=== PATIENT | female | born 1955 | race Caucasian/White ===

== ENCOUNTER 2016-09-28 17:21 | Emergency (ER) | payer OTHER ==
[~2016-09-28] VITALS: Ht 161.3 cm; Wt 99.2 kg
[~2016-09-28 17:21] MED LIST: ASPI81TA21 PO; CALCTAB7 PO; CMD5 PO; HYDR25TA4 PO; MULTTAB58 PO; POLY335040 PO; PRT/20 PO; VERA180T15 PO; VTMB12UNK PO; ZNTUNK PO
[2016-09-28 17:27] VITALS: TEMP 36.8; Ht 161.3 cm; Wt 99.2 kg
[2016-09-28 19:36] VITALS: O2SAT 98
[2016-09-28 19:49] LABS: BASO % 0.5 %; BASO ABS # 0.04 K/uL (0-0.2); COMPLETE YES; EOS % 1.8 %; HEMATOCRIT 45.1 % (37-47); IG% 0.3 %; LYMPH % 28.2 %; LYMPH ABS # 2.24 K/uL (1.2-3.4); MEAN CELL VOLUME 94.7 fL (80-100); MEAN CORPUSCULAR HEMOGLOBIN 32.8 pg (25-34); MEAN CORPUSCULAR HGB CONC 34.6 g/dl (32-36); MEAN PLATELET VOLUME 9.5 fL (7.4-10.4); MONO % 6.8 %; NEUT % 62.4 %; PLATELET COUNT 280 K/uL (130-400); RED BLOOD COUNT 4.76 M/uL (4.2-5.4); WHITE BLOOD COUNT 7.94 K/uL (4.8-10.8)
[2016-09-28] MEDS ORDERED: BUPR200T2 PO (19:54)
[2016-09-28] MEDS ORDERED: DICL50TA3 PO (19:54)
[2016-09-28] MEDS ORDERED: TRAZ50TA35 PO (19:54)
[2016-09-28 19:59] LABS: PROTHROMBIN TIME (PATIENT) 10.7 SECONDS (9.0-12.0)
[2016-09-28 20:07] LABS: BUN/CREATININE RATIO 24.2 (10-20); CALCIUM 9.2 mg/dl (8.5-10.1); CREATININE 0.8 mg/dl (0.60-1.20); POTASSIUM 3.5 mmol/L (3.5-5.1)
--- NOTE | 2016-09-28 20:36 | DIAGNOSTIC IMAGING REPORT ---
CHEST ONE VIEW PORTABLE CLINICAL HISTORY: Atypical chest pain COMPARISON STUDY: 04/08/2012 FINDINGS: The cardiac and mediastinal contours are normal. There is no evidence of focal pulmonary consolidation. There is no evidence of failure. No pleural effusions are visualized.[ IMPRESSION: No active disease in the chest. Electronically signed by: Daron Thao M.D. 09/28/2016 8:34 PM Dictated Date/Time: 09/28/2016 8:34 PM
[2016-09-28 20:47] VITALS: BP 132/81; PULSE 68; O2SAT 98
--- NOTE | 2016-09-28 22:34 | EMERGENCY ROOM VISIT NOTE ---
History Report prepared by Theodore: Merry Santos Under the Supervision of: Dr. Dev Musa M.D. First contact with patient: 19:31 Chief Complaint: HYPOTENSION Stated Complaint: LOW BP,DOESN'T REGISTER ON MONITOR History of Present Illness The patient is a 61 year old female who presents to the Emergency Room with complaints of hypotension since yesterday. The patient notes that her baseline blood pressure is around 100/68. Wednesday night, the patient ate frozen soda and afterwards noticed her heart racing and a burning sensation in her chest and neck. She took her blood pressure and it was 122/98 which she notes is high compared to her baseline. Yesterday, she took her blood pressure and it was 114/ 75. When she took it a second time, it was 93/71. Today, she believes that her blood pressure was lower than that because she could not get a reading until about noon. At that time it was 96/69. Currently, she notes that she feels somewhat woozy. She does note intermittent chest tightness that she has had for months, which has been more frequent over the past couple of weeks. She does feel slightly short of breath when she develops the chest tightness, but she notes that she feels short of breath at baseline. She also has a cough which is chronic. She is supposed to be seeing Dr. Rhoades for a cardiology appointment soon. Denies fever, black or bloody stools, diarrhea, new leg swelling or pain, or other complaints. She describes the last time that she had chest tightness was when she ate a frozen soda and it caused a burning sensation in her chest. This was on Wednesday. Source of History: patient Onset: yesterday Position: other (global) Symptom Intensity: lowest blood pressure reading of 93/71 Timing: other (persistent) Associated Symptoms: + cough (chronic), No diarrhea, No fevers Note: Other symptoms: chest tightness, woozy Review of Systems See HPI for pertinent positives & negatives. A total of 10 systems reviewed and were otherwise negative. Past Medical & Surgical Medical Problems: (1) A-fib (2) Acute diverticulitis (3) Pulmonary emboli Surgical Problems: (1) History of appendectomy (2) Hx of cholecystectomy Family History Cancer FHx: gallbladder disease Heart disease Kidney disease Social History Smoking Status: Current Every Day Smoker Alcohol Use: none Drug Use: none Marital Status: Occupation Status: retired Current/Historical Medications Scheduled Bupropion (Wellbutrin Sr), 200 MG PO BID Scheduled PRN Diclofenac (Voltaren), 50 MG PO TID PRN for Pain Trazodone Hcl (Trazodone), 100 MG PO HS PRN for Sleep Allergies Coded Allergies: Cephalosporins (Verified Allergy, Unknown, KEFLEX, 10/05/11) Ceepryn Chloride (Verified Allergy, tongue swelling, 10/05/11) Domiphen (Verified Allergy, tongue swelling, 10/05/11) Ethanol (Verified Allergy, tongue swelling, 10/05/11) Physical Exam Vital Signs Date Time Temp Pulse Resp B/P Pulse Ox O2 Delivery O2 Flow Rate FiO2 09/28/16 20:47 68 18 132/81 98 09/28/16 19:40 63 09/28/16 19:36 98 Room Air 09/28/16 19:36 62 18 128/76 98 Room Air 09/28/16 17:27 36.8 101 18 136/83 96 Room Air Physical Exam Constitutional: Vital signs reviewed. Eyes: Pupils are equal round reactive to light. Conjunctiva are noninjected. ENT: Pharynx is clear without erythema or exudate. Mucous membranes are moist. Neck supple without meningeal signs. Respiratory: Clear to auscultation bilaterally. Breath sounds are equal bilaterally. Cardiovascular: Regular rate and rhythm. No rubs or gallops. GI: Soft, nondistended and nontender. Bowel sounds are present. Musculoskeletal: No peripheral edema. No lower extremity tenderness. Integumentary: No cyanosis. Neurological: The patient is awake and alert. No focal deficits. Psychiatric: Normal affect. Medical Decision & Procedures ER Provider Diagnostic Interpretation: X-ray results as stated below per interpretation by me and the radiologist: CHEST ONE VIEW PORTABLE CLINICAL HISTORY: Atypical chest pain COMPARISON STUDY: 04/08/2012 FINDINGS: The cardiac and mediastinal contours are normal. There is no evidence of focal pulmonary consolidation. There is no evidence of failure. No pleural effusions are visualized.[ IMPRESSION: No active disease in the chest. Electronically signed by: Daron Thao M.D. 09/28/2016 8:34 PM Dictated Date/Time: 09/28/2016 8:34 PM Laboratory Results 09/28/16 19:30 Red Blood Count 4.76, Mean Corpuscular Volume 94.7, Mean Corpuscular Hemoglobin 32.8, Mean Corpuscular Hemoglobin Concent 34.6, Mean Platelet Volume 9.5, Neutrophils (%) (Auto) 62.4, Lymphocytes (%) (Auto) 28.2, Monocytes (%) (Auto) 6.8, Eosinophils (%) (Auto) 1.8, Basophils (%) (Auto) 0.5, Neutrophils # (Auto) 4.96, Lymphocytes # (Auto) 2.24, Monocytes # (Auto) 0.54, Eosinophils # (Auto) 0.14, Basophils # (Auto) 0.04 09/28/16 19:30 Test 09/28/16 19:30 09/28/16 19:47 White Blood Count 7.94 K/uL (4.8-10.8) Red Blood Count 4.76 M/uL (4.2-5.4) Hemoglobin 15.6 g/dL (12.0-16.0) Hematocrit 45.1 % (37-47) Mean Corpuscular Volume 94.7 fL (80-100) Mean Corpuscular Hemoglobin 32.8 pg (25-34) Mean Corpuscular Hemoglobin Concent 34.6 g/dl (32-36) Platelet Count 280 K/uL (130-400) Mean Platelet Volume 9.5 fL (7.4-10.4) Neutrophils (%) (Auto) 62.4 % Lymphocytes (%) (Auto) 28.2 % Monocytes (%) (Auto) 6.8 % Eosinophils (%) (Auto) 1.8 % Basophils (%) (Auto) 0.5 % Neutrophils # (Auto) 4.96 K/uL (1.4-6.5) Lymphocytes # (Auto) 2.24 K/uL (1.2-3.4) Monocytes # (Auto) 0.54 K/uL (0.11-0.59) Eosinophils # (Auto) 0.14 K/uL (0-0.5) Basophils # (Auto) 0.04 K/uL (0-0.2) RDW Standard Deviation 46.0 fL (36.4-46.3) RDW Coefficient of Variation 13.1 % (11.5-14.5) Immature Granulocyte % (Auto) 0.3 % Immature Granulocyte # (Auto) 0.02 K/uL (0.00-0.02) Prothrombin Time 10.7 SECONDS (9.0-12.0) Prothromb Time International Ratio 1.0 (0.9-1.1) Activated Partial Thromboplast Time 25.4 SECONDS (21.0-31.0) Partial Thromboplastin Ratio 1.0 Anion Gap 8.0 mmol/L (3-11) Est Creatinine Clear Calc Drug Dose 83.7 ml/min Estimated GFR () 92.2 Estimated GFR (Non- 79.6 BUN/Creatinine Ratio 24.2 (10-20) Calcium Level 9.2 mg/dl (8.5-10.1) Bedside Troponin I 0.000 ng/ml (0-0.045) Laboratory results as reviewed by me. ECG Indication: other (hypotension) Rate (beats per minute): 61 Rhythm: normal sinus Findings: no acute ischemic change, no ectopy ED Course 1932: The patient was evaluated in room A3. A complete history and physical exam was performed. 2034: I reassessed the patient and talked to her about test results. She doesnt want to stay in the hospital because her has dementia. Her pressure is now 132/80. She will be discharged from the ER and will follow closely with her doctor. 2037: I spoke with Dr. Menezes for expedited outpatient follow up. Medical Decision This is a 61-year-old female presents with low blood pressure and chest discomfort. Differential diagnosis includes GERD, metabolic derangement, dehydration, unstable angina, ND. I did perform a limited focused review of portions of the patient's old chart on the electronic medical record. The patient has had no recent pertinent visits to this hospital. I did evaluate the patient as noted above. The patient states that she has had low blood pressures at home but her blood pressure here is unremarkable. She did describe chest discomfort over the past 2 months but has not had any recently other than a burning sensation after drinking soda. IV access was established. The patient was placed on a continuous drafter electronic. I did order and personally review the patient's 12-lead EKG and chest x-ray as described above. I did order and review the patient's blood work as noted in the electronic medical record. Troponin is negative. I did discuss the test results with the patient. Her blood pressure is stable at this time. I did discuss possible workup for her chest discomfort. She did not wish to be admitted as she has a who has care needs at home. She will follow up closely with her doctor for further evaluation. I did speak to Dr. Brewer who will try to ensure expedient follow up for her. The patient was discharged in good condition. Impression Primary Impression: Low blood pressure Additional Impression: Precordial chest pain Scribe Attestation The scribe's documentation has been prepared under my direct and personally reviewed by me in its entirety. I confirm that the note above accurately reflects all work, treatment, procedures, and medical decision making performed by me. Departure Information Dispostion Home / Self-Care Referrals Pedro Hayden, D.O. (PCP) Patient Instructions Chest Pain - [facility], [facility] Additional Instructions You have been examined and treated today on an emergency basis only. This is not a substitute for, or an effort to provide, complete comprehensive medical care. It is impossible to recognize and treat all injuries or illnesses in a single emergency department visit. It is therefore important that you follow up closely with your physician. Call as soon as possible for an appointment. Return for worsening symptoms or if you develop profuse sweating, difficulty breathing, feeling like you will pass out or any other concerning symptoms. Problem Qualifiers
== END 2016-09-28 20:49 | disposition home or self-care (01) ==
LOC: C.EDB 17:21 → C.EDA 20:49
DX: I95.9 Hypotension, unspecified (principal); R07.2 Precordial pain; I48.91 Unspecified atrial fibrillation; K57.92 Diverticulitis of intestine, part unspecified, without perforation or abscess without bleeding; F17.200 Nicotine dependence, unspecified, uncomplicated; Z90.49 Acquired absence of other specified parts of digestive tract; Z98.890 Other specified postprocedural states; Z79.899 Other long term (current) drug therapy; Z88.8 Allergy status to other drugs, medicaments and biological substances; Z80.9 Family history of malignant neoplasm, unspecified; Z83.79 Family history of other diseases of the digestive system; Z82.49 Family history of ischemic heart disease and other diseases of the circulatory system; Z84.1 Family history of disorders of kidney and ureter

== ENCOUNTER 2017-08-09 06:53 | Day surgery (SDC) | payer OTHER ==
[2017-06-24 13:39] VITALS: BMI 39.0
--- NOTE | 2017-06-24 14:26 | PAT Medication Instructions ---
Service Date Jun 24, 2017. Current Home Medication List Aspirin (Aspirin Ec), 81 MG PO QAM Atorvastatin (Lipitor), 20 MG PO QAM Bupropion (Wellbutrin Sr), 150 MG PO QPM Bupropion HCl (Bupropion HCl Sr), 2 TAB PO QAM Diclofenac (Voltaren), 50 MG PO TID PRN for Pain Diclofenac (Voltaren), 50 MG PO TIDM Metoprolol Succinate (Toprol Xl), 12.5 MG PO QAM Sennosides-Docusate Sodium (Stool Softener), 2 TABS PO QPM Tramadol (Ultram), 50 MG PO Q6 PRN for Pain Trazodone Hcl (Trazodone), 100 MG PO HS PRN for Sleep Medication Instructions For Your Scheduled Surgery - Check with surgeon for instructions: Diclofenac (Voltaren), 50 MG PO TID PRN for Pain Diclofenac (Voltaren), 50 MG PO TIDM - Hold the following medications the morning of surgery: Sennosides-Docusate Sodium (Stool Softener), 2 TABS PO QPM - Take the following medications the morning of surgery with a sip of water: Tramadol (Ultram), 50 MG PO Q6 PRN for Pain (okay to take up to 4 hours prior to surgery if needed) Metoprolol Succinate (Toprol Xl), 12.5 MG PO QAM Bupropion HCl (Bupropion HCl Sr), 2 TAB PO QAM Atorvastatin (Lipitor), 20 MG PO QAM Aspirin (Aspirin Ec), 81 MG PO QAM (okay to continue per surgeon) - Take the following medications as scheduled the night before surgery: Trazodone Hcl (Trazodone), 100 MG PO HS PRN for Sleep (if needed) Tramadol (Ultram), 50 MG PO Q6 PRN for Pain (if needed) Bupropion (Wellbutrin Sr), 150 MG PO QPM If you have any questions please call us at [phone] or [phone] or [phone]
[2017-08-03 14:32] VITALS: BMI 39.0
[~2017-08-09] VITALS: Ht 160 cm; Wt 100.0 kg
[~2017-08-09 06:53] MED LIST changes: -ASPI81TA21 PO; +ASPI81TA28 PO; +ATOR-22 PO; +BUPR-79 PO; -CALCTAB7 PO; +CEFAZOLIN 2000MG IV PUSH 10 ML IV SCH; +CLINDAMYCIN 600 MG/54 ML D5W IV SCH; -CMD5 PO; +DICL50TA3 PO; -HYDR25TA4 PO; +LACTATED RINGER'S 1000ML 1,000 ML IV SCH; +METO25TA3 PO; -MULTTAB58 PO; -POLY335040 PO; -PRT/20 PO; +SENNTAB23 PO; +TRAM-10 PO; +TRAZ50TA35 PO; -VERA180T15 PO; -VTMB12UNK PO; +WLLSR150 PO; -ZNTUNK PO
[2017-08-09 07:23] VITALS: BP 123/68; PULSE 58; TEMP 36.7; O2SAT 95; Ht 160 cm; Wt 100.0 kg
[2017-08-09] MEDS ORDERED: ONDANSETRON INJ 2 MG/ML 2 ML VIAL ONE (08:03)
[2017-08-09] MEDS ORDERED: DEXAMETHASONE SOD INJ 4 MG/ML VIAL ONE (08:03)
[2017-08-09] MEDS ORDERED: PROPOFOL IV EMULSION 10 MG/ML 20 ML VIAL IV ONE (08:03)
[2017-08-09] MEDS ORDERED: FENTANYL CITRATE INJ 50 MCG/1 ML 2 ML VIAL ONE (08:03)
[2017-08-09] MEDS ORDERED: MIDAZOLAM HCL 1 MG/ML 2ML VIAL ONE (08:03)
[2017-08-09] MEDS ORDERED: GLYCOPYRROLATE INJ 0.2 MG/ML VIAL ONE ×2 (08:03→09:45)
[2017-08-09] MEDS ORDERED: NEOSTIGMINE METHYLSULFATE 5 MG/5 ML SYR ONE (08:03)
[2017-08-09] MEDS ORDERED: LIDOCAINE HCL 2% 2 ML VIAL (20MG/ML) ONE (08:03)
--- NOTE | 2017-08-09 08:28 | History & Physical Bridge Note ---
H&P Re-Evaluation Bridge Note: I have examined the patient, reviewed the History & Physical and in the interval since the performance of the History & Physical I have noted the following changes of clinical significance: No changes noted
[2017-08-09] MEDS ORDERED: BUPIVACAINE 0.5 % 5 MG/1 ML MPF 30ML VIAL ONE (08:45)
[2017-08-09] MEDS ORDERED: BACITRACIN OINT 15 GM TUBE ONE (08:45)
[2017-08-09] MEDS ORDERED: LIDOCAINE HCL 1% 20 ML VIAL ONE (08:45)
[2017-08-09] MEDS ORDERED: ONDANSETRON INJ 2 MG/ML 2 ML VIAL IV PRN ×2 (09:15→10:30)
[2017-08-09] MEDS ORDERED: EpHEDrine SULFATE INJ 50 MG/ML AMP IV PRN (09:15)
[2017-08-09] MEDS ORDERED: FLUMAZENIL 0.1 MG/1 ML 10 ML VIAL IV PRN (09:15)
[2017-08-09] MEDS ORDERED: ATROPINE SULFATE 0.1 MG/ML 5ML SYR IV PRN (09:15)
[2017-08-09] MEDS ORDERED: LABETALOL HCL IV 5 MG/ML 20ML IV PRN (09:15)
[2017-08-09] MEDS ORDERED: PROMETHAZINE HCL INJ 12.5 MG in SODIUM CHLORIDE 0.9% 50ML 50 ML IV PRN (09:15)
[2017-08-09] MEDS ORDERED: NALOXONE HCL 0.4 MG/1 ML VIAL/CARP IV PRN (09:15)
[2017-08-09] MEDS ORDERED: HYDROmorphone INJ 1 MG/ML SYR IV PRN (09:15)
[2017-08-09] MEDS ORDERED: LARYING-O-JET KIT (LTA) ONE ×2 (09:45)
[2017-08-09] MEDS ORDERED: KETOROLAC TROMETHAMINE 30 MG/ML VIAL ONE (09:45)
[2017-08-09] MEDS ORDERED: EpHEDrine SULFATE 50MG/5ML SYR ONE (09:45)
[2017-08-09] MEDS ORDERED: SODIUM CHLORIDE 0.9% INJ 10 ML VIAL ONE (09:51)
[2017-08-09] MEDS ORDERED: EpHEDrine SULFATE INJ 50 MG/ML AMP ONE (09:51)
[2017-08-09] MEDS ORDERED: ROCURONIUM BROMIDE 10 MG/ML 5 ML VIAL IV ONE (09:54)
[2017-08-09] MEDS ORDERED: ALBUTEROL HFA INHALER 8.5 GM INH ONE (10:07)
[2017-08-09] MEDS ORDERED: OXYC-57 PO (10:18)
--- NOTE | 2017-08-09 10:18 | [facility] Post Operative Brief Note ---
Immediate Operative Summary Operative Date Aug 09, 2017. Pre-Operative Diagnosis Ventral Hernia Post-Operative Diagnosis Ventral Hernia Procedure(s) Performed Open Repair Ventral Hernia with Ventralex Hernia Patch Surgeon Dr. Pati Joyner Agricultural Extension Educator Surgeon(s) Elisa Benton PA-C Estimated Blood Loss 5ml Findings ventral hernia, [id number] Fluids (cc crystalloids) 1000ml Specimens Permanent Solution: A. Hernia Sac Drains none Anesthesia general Complication(s) None Disposition Recovery Room / PACU
--- NOTE | 2017-08-09 10:23 | Discharge Instructions ---
Discharge Instructions Date of Service Aug 09, 2017. Admission Reason for Admission: Ventral Hernia Discharge Discharge Diagnosis / Problem: same Discharge Goals Goal(s): Decrease discomfort, Improve function Activity Recommendations Activity Limitations: as noted below No heavy lifting over 10 pounds for 4-6 weeks No strenuous activity until cleared by surgeon No submerging incisions underwater for 2 weeks (no bathing, swimming, or hot tubs) No driving while taking narcotic pain medication or until you are pain free . Instructions / Follow-Up Instructions / Follow-Up You may shower in 4 days, sponge bath and wash hair in meantime Keep dressing clean and dry and remove in 4 days and then replace daily or as needed Surgical lucy will be removed in the office Walking and light activity is encouraged You will be given narcotic pain medication (Percocet) as needed for moderate to severe pain. This medication may make you drowsy. If you have mild pain you may take extra strength Tylenol or Ibuprofen as needed for pain Wear abdominal binder daily for support you may take it off at bedtime Follow-up in surgical office in 1-2 weeks as scheduled, please call office at [phone] if you do not already have an appointment Current Hospital Diet Patient's current hospital diet: Discharge Diet Recommended Diet: Regular Diet Procedures Procedures Performed: Open Repair Ventral Hernia with Ventralex Hernia Patch Pending Studies Studies pending at discharge: yes List of pending studies: surgical specimen , will be reviewed at follow up visit Medical Emergencies . Who to Call and When: Medical Emergencies: If at any time you feel your situation is an emergency, please call 911 immediately. . Non-Emergent Contact Non-Emergency issues call your: Surgeon Call Non-Emergent contact if: you have a fever, temperature is above 101, your pain is not controlled, your pain is worsening, your pain is unusual for you, wound has increased drainage, wound has increased redness, wound has increased pain . "Provider Documentation" section prepared by Elisa Benton. . VTE Core Measure Inpt VTE Proph given/why not?: SCD's [place] Drug Monitoring Program Search Results: patient reviewed within database, no issues identified
[2017-08-09] MEDS ORDERED: ACETAMINOPHEN 325 MG TAB PO PRN (10:30)
[2017-08-09] MEDS ORDERED: MoRPHine SULFATE 2 MG/ML CARP IV PRN ×2 (10:30)
[2017-08-09] MEDS ORDERED: OXYCODONE/ACETAMINOPHEN 5-325 TAB PO PRN ×2 (10:30)
[2017-08-09] MEDS ORDERED: MoRPHine SULFATE 4 MG/ML 1 ML CARP\\VIAL IV PRN (10:30)
--- NOTE | 2017-08-09 11:14 | Anesthesiology Progress Note ---
Anesthesia Post Op Note Date & Time Aug 09, 2017 at 11:13 Vital Signs Pain Intensity: 1 Vital Signs Past 12 Hours Date Time Temp Pulse Resp B/P (MAP) Pulse Ox O2 Delivery O2 Flow Rate FiO2 08/09/17 11:00 36.4 65 16 109/68 94 Room Air 08/09/17 10:50 65 14 102/67 93 Room Air 08/09/17 10:40 62 23 111/62 98 Oxymask 10 08/09/17 10:33 64 16 114/65 96 Oxymask 10 08/09/17 10:23 36.6 65 20 112/57 98 Oxymask 10 08/09/17 07:23 36.7 58 18 123/68 (86) 95 Room Air Notes Mental Status: alert / awake / arousable, participated in evaluation Pt Amnestic to Procedure: Yes Nausea / Vomiting: adequately controlled Pain: adequately controlled Airway Patency, RR, SpO2: stable & adequate BP & HR: stable & adequate Hydration State: stable & adequate Anesthetic Complications: no major complications apparent
[2017-08-09 11:15] VITALS: BP 109/64; PULSE 61; TEMP 36.6; O2SAT 93
[2017-08-09 11:45] VITALS: BP 116/61; PULSE 66; TEMP 36.6; O2SAT 93
[2017-08-09 12:15] VITALS: BP 127/70; PULSE 68; TEMP 36.7; O2SAT 94
--- NOTE | 2017-08-09 12:34 | OPERATIVE REPORT ---
DATE OF OPERATION: 08/09/2017 PREOPERATIVE DIAGNOSIS: Ventral hernia. POSTOPERATIVE DIAGNOSIS: Same. OPERATION: Open repair of ventral hernia with mesh. SURGEON: Pati Joyner MD. BENEFITS REPRESENTATIVE: Elisa Benton PA-C. ANESTHESIA: General. ESTIMATED BLOOD LOSS: About 5 mL. FINDINGS: Ventral hernia size about 3 x 3 cm. COMPLICATIONS: None. IV FLUIDS: 1000 mL. INDICATIONS FOR THE PROCEDURE: This is a 62-year-old female who presented with ventral hernia and patient will be required to do ventral hernia repair with mesh. I did talk to the patient about the benefit and risk, alternate procedure. I indicated the risks may include but not limited such as bleeding, infection, hernia recurrence, any complications related to mesh such as pain, seroma, infection, injury to the bowel, DVT, myocardial infarction, stroke, even . The patient understands. She signed informed consent and I answered all questions. DETAILS OF PROCEDURE: We brought the patient to the OR, put the patient in the supine position. The patient received SCD on bilateral legs to prevent DVT. Also, the patient received 600 mg of clindamycin IV for prophylactic antibiotic. The patient received general anesthesia without difficulty. The abdomen was prepped and draped in routine sterile fashion. After timeout, we rechecked the patient had a left-sided ventral hernia just below the umbilicus so we made an incision just below the umbilicus on the left side above the hernia and opened the fascia and mobilized the hernia sac and resected the hernia sac and then we found the patient had about 3 x 3 cm hernia. The hernia contents all reduced to the abdominal cavity. Then we chose 8 cm X 8cm mesh to repair the hernia and then I used #1 Ethibond to fix the mesh into the fascial layer around the 360 degree interruptedly and we tied all the suture and then we rechecked mesh to sit nicely. No tension. Then I used 2-0 Vicryl to close subcutaneous layer, interruptedly and used lucy to close the skin and put the dressing on. The patient tolerated the procedure well. All the instrument, needle and sponge count correct x2 at the end of case. I talked to the patient's family member about the OR finding and procedure we did. They understand. Also, gave her the postop care instruction. The patient transferred to recovery room in stable condition. The resected hernia sac was sent to pathology. I attest to the content of the Intraoperative Record and any orders documented therein. Any exceptions are noted below. EDWIND
== END 2017-08-09 12:40 | disposition home or self-care (01) ==
LOC: C.ACU 06:53
PROVIDERS: ATTEND Surgery
DX: K43.9 Ventral hernia without obstruction or gangrene (principal); E78.5 Hyperlipidemia, unspecified; F32.9 Major depressive disorder, single episode, unspecified; F17.210 Nicotine dependence, cigarettes, uncomplicated; Z79.82 Long term (current) use of aspirin; Z79.899 Other long term (current) drug therapy

== ENCOUNTER 2017-09-17 06:47 | Inpatient (IN) | payer OTHER ==
[2017-09-06 14:40] VITALS: BMI 39.0
--- NOTE | 2017-09-06 15:16 | PAT Medication Instructions ---
Service Date Sep 06, 2017. Current Home Medication List Aspirin (Aspirin Ec), 81 MG PO QAM Atorvastatin (Lipitor), 20 MG PO QAM Bupropion (Wellbutrin Sr), 150 MG PO QPM Bupropion HCl (Bupropion HCl Sr), 2 TAB PO QAM Diclofenac (Voltaren), 50 MG PO TID PRN for Pain Metoprolol Succinate (Toprol Xl), 12.5 MG PO BID Sennosides-Docusate Sodium (Stool Softener), 2 TABS PO QPM Trazodone Hcl (Trazodone), 100 MG PO HS PRN for Sleep Medication Instructions For Your Scheduled Surgery - Check with surgeon for instructions: Diclofenac (Voltaren), 50 MG PO TID PRN for Pain - Take the following medications the morning of surgery with a sip of water: Aspirin (Aspirin Ec), 81 MG PO QAM Atorvastatin (Lipitor), 20 MG PO QAM Bupropion HCl (Bupropion HCl Sr), 2 TAB PO QAM Metoprolol Succinate (Toprol Xl), 12.5 MG PO BID - Take the following medications as scheduled the night before surgery: Bupropion (Wellbutrin Sr), 150 MG PO QPM Trazodone Hcl (Trazodone), 100 MG PO HS PRN for Sleep (if needed) Sennosides-Docusate Sodium (Stool Softener), 2 TABS PO QPM Metoprolol Succinate (Toprol Xl), 12.5 MG PO BID If you have any questions please call us at [phone] or [phone] or [phone]
[2017-09-06 16:14] LABS: BASO % 0.6 %; BASO ABS # 0.04 K/uL (0-0.2); EOS ABS # 0.22 K/uL (0-0.5); HEMATOCRIT 44.3 % (37-47); HEMOGLOBIN 14.8 g/dL (12.0-16.0); IG# 0.01 K/uL (0.00-0.02); LYMPH % 26.2 %; LYMPH ABS # 1.89 K/uL (1.2-3.4); MEAN CELL VOLUME 95.1 fL (80-100); MEAN CORPUSCULAR HEMOGLOBIN 31.8 pg (25-34); MEAN CORPUSCULAR HGB CONC 33.4 g/dl (32-36); MEAN PLATELET VOLUME 9.3 fL (7.4-10.4); MONO % 7.8 %; MONO ABS # 0.56 K/uL (0.11-0.59); NEUT % 62.3 %; PLATELET COUNT 273 K/uL (130-400); RED CELL DISTRIBUTION WIDTH CV 13.3 % (11.5-14.5); WHITE BLOOD COUNT 7.22 K/uL (4.8-10.8)
[2017-09-06 16:21] LABS: CALCIUM 9.8 mg/dl (8.5-10.1); CREATININE 0.77 mg/dl (0.60-1.20); POTASSIUM 4.8 mmol/L (3.5-5.1)
[2017-09-06 16:27] LABS: PTT PATIENT 24.3 SECONDS (21.0-31.0)
--- NOTE | 2017-09-16 07:47 | HISTORY & PHYSICAL EXAMINATION ---
DATE OF ADMISSION: 09/17/2017 PREOPERATIVE DIAGNOSIS: Primary osteoarthritis of the left knee. HISTORY OF PRESENT ILLNESS: Keke is a pleasant 62-year-old female who has been complaining of several year history of increasing left knee pain. X-rays and clinical examinations have been diagnostic for primary osteoarthritis of the left knee. After failing years of conservative treatment, she has elected to proceed with a left total knee arthroplasty. PAST MEDICAL HISTORY: Significant for irregular heartbeat, pulmonary embolism following total hip arthroplasty, anxiety, depression, obesity, GERD and osteoarthritis. PAST SURGICAL HISTORY: Significant for 2 C-sections, appendectomy, cholecystectomy, colostomy with reversal, a hernia repair, a right total knee arthroplasty and a right total hip arthroplasty. ALLERGIES: Include KEFLEX. MEDICATIONS: Include Wellbutrin 450 mg daily, Toprol 1/2 tablet in the morning and the evening, aspirin 81 mg daily, trazodone 2 tabs at night, Lipitor daily. FAMILY HISTORY: Significant for heart disease. SOCIAL HISTORY: She is , rarely drinks. She has a 40-year history of former tobacco use. She is moderately active. REVIEW OF SYSTEMS: She complains mostly of left knee pain. All other pertinent review of systems are negative. PHYSICAL EXAMINATION: GENERAL: She is awake, alert and oriented x3. She is in no apparent distress. She is very pleasant. HEENT: Pupils are equal, round and reactive to light. Extraocular motion intact. Oral mucosa is pink and moist. HEART: Regular rate per radial pulse. LUNGS: Catherine symmetrically bilaterally with no audible breath sounds. ABDOMEN: Soft, nontender, nondistended. MUSCULOSKELETAL: On physical examination of the knee, she ambulates independently, but she does have a slight antalgic gait. She has a valgus deformity of her left knee. She has no effusion on exam. She has range of motion from 0-120 degrees. She has no instability. She has a lot of tenderness to palpation over the distal lateral femoral condyle. IMAGING DATA: Radiographs of the left knee do show advanced osteoarthritis mostly involving the lateral compartment. There is joint space narrowing and osteophyte formation. IMPRESSION: Primary osteoarthritis of the left knee. PLAN: We will proceed with a left total knee arthroplasty. Postoperatively, she will be started on Xarelto for DVT prophylaxis. This is due to her history of PE following her total hip. She will likely be kept in the hospital for 2 midnights for postoperative medical management.
[~2017-09-17] VITALS: Ht 160 cm; Wt 100.5 kg
[2017-09-17] VITALS (8 sets, daily range): BP systolic 95–105; BP diastolic 52–71; PULSE 50–56; TEMP 36.6–36.8; O2SAT 93–96; Ht 160 cm; Wt 100.5 kg
[~2017-09-17 06:47] MED LIST changes: +ACETAMINOPHEN 500 MG TAB PO SCH; +BUPIVACAINE 0.25% 30 ML VIAL ONE; +BUPIVACAINE 0.5 % 5 MG/1 ML PF 10ML VIAL ONE; -CEFAZOLIN 2000MG IV PUSH 10 ML IV SCH; -CLINDAMYCIN 600 MG/54 ML D5W IV SCH; +FAMOTIDINE 20 MG TAB PO SCH; +GABAPENTIN 300 MG CAP PO SCH; +LACTATED RINGER'S 1000ML 500 ML IV SCH; +LACTATED RINGER'S 1000ML IV SCH; +ROPIVACAINE 5MG/ML 30 ML 150 MG, BUPIVACAINE 0.5% MPF INJ 30 ML, EpINEphrine HCL INJ 0.... INFIL SCH; -TRAM-10 PO; +VANCOMYCIN INJ 1,500 MG in SODIUM CHLORIDE 0.9% 500ML 500 ML IV SCH
[2017-09-17] MEDS ORDERED: MIDAZOLAM HCL 1 MG/ML 2ML VIAL ONE (07:55)
[2017-09-17] MEDS ORDERED: BACITRACIN 50000 UNIT VIAL ONE (08:28)
[2017-09-17] MEDS ORDERED: ORTHO JOINT ANESTHETIC ONE (08:28)
[2017-09-17] MEDS ORDERED: ATROPINE SULFATE 0.1 MG/ML 5ML SYR IV PRN (08:45)
[2017-09-17] MEDS ORDERED: ONDANSETRON INJ 2 MG/ML 2 ML VIAL IV PRN ×2 (08:45→10:30)
[2017-09-17] MEDS ORDERED: HYDROmorphone INJ 1 MG/ML SYR IV PRN (08:45)
[2017-09-17] MEDS ORDERED: FENTANYL CITRATE INJ 50 MCG/1 ML 2 ML VIAL IV PRN (08:45)
[2017-09-17] MEDS ORDERED: LABETALOL HCL IV 5 MG/ML 20ML IV PRN (08:45)
[2017-09-17] MEDS ORDERED: MEPERIDINE HCL 25 MG/ML CARP IV PRN (08:45)
[2017-09-17] MEDS ORDERED: EpHEDrine SULFATE INJ 50 MG/ML AMP IV PRN (08:45)
[2017-09-17] MEDS: TRANEXAMIC ACID INJ 1,000 MG in SYRINGE 0 ML IV SCH ×2 (08:55→13:15)
[2017-09-17] MEDS ORDERED: SOD PHOSPHATE/SOD BIPHOSPHATE ENEMA 132 ML BTL PR PRN (10:30)
[2017-09-17] MEDS ORDERED: MoRPHine SULFATE 2 MG/ML CARP IV PRN (10:30)
[2017-09-17] MEDS ORDERED: MAGNESIUM HYDROXIDE SUSP 30 ML UDC PO PRN (10:30)
[2017-09-17] MEDS ORDERED: VANCOMYCIN CONSULT ACTIVE PRN (10:30)
[2017-09-17] MEDS ORDERED: BISACODYL 10 MG SUPP PR PRN (10:30)
[2017-09-17] MEDS ORDERED: TRAZODONE HCL 50 MG TAB PO PRN (10:30)
[2017-09-17] MEDS ORDERED: METOCLOPRAMIDE HCL INJ 5 MG/ML 2 ML VIAL IV PRN (10:30)
--- NOTE | 2017-09-17 10:30 | [facility] Post Operative Brief Note ---
Immediate Operative Summary Operative Date Sep 17, 2017. Pre-Operative Diagnosis Primary Osteoarthritis Left Knee Post-Operative Diagnosis Primary Osteoarthritis Left Knee Procedure(s) Performed Left Total Knee Arthroplasty Surgeon Dr. Leger Plaster Pattern Caster Surgeon(s) GERMAIN [place] Estimated Blood Loss 5 ml Findings Consistent with Post-Op Diagnosis Specimens A. Left Knee Bone and Tissue Anesthesia Type MAC Spinal Regional Complication(s) none Disposition Disposition: Recovery Room / PACU
[2017-09-17] MEDS ORDERED: PROPOFOL IV EMULSION 10 MG/ML 20 ML VIAL IV ONE (10:45)
--- NOTE | 2017-09-17 11:19 | DIAGNOSTIC IMAGING REPORT ---
L KNEE 1 OR 2 VIEWS ROUTINE CLINICAL HISTORY: Degenerative arthritis. Postoperative study COMPARISON: None. DISCUSSION: There are postsurgical changes of a total left knee arthroplasty and patellar resurfacing. The femoral tibial components appear well seated. Overlying skin lucy and surgical drains are evident. Air within the soft tissues is felt to be postsurgical. IMPRESSION: Postsurgical changes of a total left knee arthroplasty. Electronically signed by: Daron Thao M.D. 09/17/2017 11:18 AM Dictated Date/Time: 09/17/2017 11:17 AM
--- NOTE | 2017-09-17 11:39 | Anesthesiology Progress Note ---
Anesthesia Post Op Note Date & Time Sep 17, 2017 at 11:39 Vital Signs Pain Intensity: 0 Vital Signs Past 12 Hours Date Time Temp Pulse Resp B/P (MAP) Pulse Ox O2 Delivery O2 Flow Rate FiO2 09/17/17 11:15 46 14 122/81 96 Nasal Cannula 2 09/17/17 11:05 46 18 107/64 98 Nasal Cannula 2 09/17/17 10:55 36.1 49 16 98/68 98 Oxymask 8 09/17/17 07:17 95 Room Air Notes Mental Status: alert / awake / arousable, participated in evaluation Pt Amnestic to Procedure: Yes Nausea / Vomiting: adequately controlled Pain: adequately controlled Airway Patency, RR, SpO2: stable & adequate BP & HR: stable & adequate Hydration State: stable & adequate Neuraxial Anesthesia: was administered, sensory block is resolving Anesthetic Complications: no major complications apparent
--- NOTE | 2017-09-17 12:51 | OPERATIVE REPORT ---
DATE OF OPERATION: 09/17/2017 PREOPERATIVE DIAGNOSIS: Advanced osteoarthritis of the left knee. POSTOPERATIVE DIAGNOSIS: Same. PROCEDURE: Left total knee arthroplasty. SURGEON: Dr. Mason Leger. FAST FOOD DELIVERY DRIVER: Marcelo Castillo PA-C, whose assistance was necessary for retraction and closure. ANESTHESIA: Spinal with a left adductor nerve block. COMPLICATIONS: None. CONDITION: Stable to PACU. IMPLANTS USED: I used a Biomet Vanguard left total knee arthroplasty with a size 65 femur, a size 71 tibia, a size 28 x 8 patella and size 12 PS Plus poly. All complements were cemented with Palacos-G cement. INDICATIONS: Keke is a pleasant 62-year-old female who presented to my office with complaints of chronic left knee pain. X-rays and clinical examination were diagnostic for primary osteoarthritis of the left knee. After failing conservative treatment, she elected to undergo a left total knee arthroplasty. DESCRIPTION OF PROCEDURE: On 09/17/2017, she arrived at [facility] for the above procedure. She was seen in the preoperative holding area and the operative extremity was identified and signed. She was given a preoperative antibiotic, a spinal anesthetic and a left adductor nerve block. She was taken back to the operating room, laid on the table in supine position and put under basic sedation. The left knee was then prepped and draped in sterile fashion. Time-out was done and the patient's operative extremity was properly identified. A midline incision was made directly over the patella. Dissection was taken down to the extensor mechanism and a medial parapatellar arthrotomy was used. The medial retinaculum was released and the knee was flexed. The fat pad was left intact. A drill was sent down the center of the femoral canal, followed by an intramedullary jovanny. Off that jovanny, a distal femoral cutting block was placed and 12 mm was resected off the distal femur at 6 degrees of valgus. A posterior referencing guide was used to measure the distal femur and it measured to be a size 65. Two drill holes were placed in 3 degrees of external rotation. A 4-in-1 cutting block was then impacted into place. Anterior, posterior and chamfer cuts were then made. A box cutting guide was then impacted into place and the box was resected for the posterior stabilizing component. The proximal tibia was then exposed. A drill was sent down the center of the tibial canal followed by an intramedullary jovanny. Off that jovanny, a proximal tibial resection guide was placed. A 2 mm was resected off the low lateral side. The tibia was then measured to be a size 71. It was set in the appropriate rotation, drilled and then punched. The posterior aspect of the knee was then opened up. Time was spent removing any remaining soft tissue fragments and bony osteophytes from the posterior aspect of the knee. Trial components were placed. The knee was brought through a full range of motion and felt to be stable. The patella was then everted and 8 mm was resected off the posterior aspect of the patella. The patella measured to be a size 28 and 3 peg holes were drilled. A trial patella was placed and was good fit. Trial components were then removed and the soft tissues around the knee were then injected with 100 mL of an orthopedic pain control cocktail. The final components were all cemented in place with Palacos-G cement. Once cement had hardened, several polyethylene inserts were trialed and a size 12 PS Plus seemed to be the best fit. The final poly was then snapped into place and the anterior bar was locked. The knee was then irrigated with 3 liters of normal saline solution with bacitracin. Two drains were placed. The extensor mechanism was closed with #2 FiberWire suture in the superior medial aspect and #1 Vicryl, both proximally and distally. The skin was closed with 2-0 Vicryl, 3-0 V-Loc suture and lucy. She was then placed in a soft compressive dressing, extubated, transferred to [facility] and taken to the postanesthesia care unit in stable condition. She tolerated the procedure well. I attest to the content of the Intraoperative Record and any orders documented therein. Any exception s are noted below.
[2017-09-17] MEDS: SODIUM CHLORIDE 0.9% 1000ML 1,000 ML IV SCH (14:35)
[2017-09-17] MEDS: OXYCODONE HCL IR 5 MG TAB (IMMEDIATE RELEASE) PO PRN (14:40)
[2017-09-17] MEDS: KETOROLAC TROMETHAMINE 30 MG/ML VIAL IV. SCH ×2 (18:00→23:57)
[2017-09-17] MEDS: ACETAMINOPHEN IV 1,000 MG in EMPTY BAG 0 ML IV SCH (18:01)
[2017-09-17] MEDS ORDERED: VANCOMYCIN INJ 1,500 MG in SODIUM CHLORIDE 0.9% 500ML 500 ML IV ONE (20:00)
[2017-09-17] MEDS: ASPIRIN 325 MG ECTAB PO SCH (20:33)
[2017-09-17] MEDS: METOPROLOL SUCC 25MG EXT REL TAB PO SCH (20:34)
[2017-09-17] MEDS: DOCUSATE SODIUM 100 MG CAP PO SCH (20:34)
[2017-09-17] MEDS ORDERED: SENNA 8.6 MG TAB PO SCH (21:00)
[2017-09-17] MEDS ORDERED: BuPROPion SR 150 MG TABCR PO SCH (21:00)
[2017-09-18] VITALS: O2SAT 95
[2017-09-18] MEDS: SODIUM CHLORIDE 0.9% 1000ML 1,000 ML IV SCH ×2 (02:13→10:19)
[2017-09-18] MEDS: ACETAMINOPHEN IV 1,000 MG in EMPTY BAG 0 ML IV SCH ×2 (02:13→09:30)
[2017-09-18 03:37] VITALS: BP 102/60; PULSE 58; TEMP 36.7; O2SAT 94
[2017-09-18] MEDS: KETOROLAC TROMETHAMINE 30 MG/ML VIAL IV. SCH ×2 (06:01→11:05)
[2017-09-18 07:25] LABS: HEMATOCRIT 35.2 % (37-47); HEMOGLOBIN 11.7 g/dL (12.0-16.0); MEAN CELL VOLUME 96.4 fL (80-100); MEAN CORPUSCULAR HEMOGLOBIN 32.1 pg (25-34); MEAN CORPUSCULAR HGB CONC 33.2 g/dl (32-36); MEAN PLATELET VOLUME 9.2 fL (7.4-10.4); PLATELET COUNT 175 K/uL (130-400); RED CELL DISTRIBUTION WIDTH CV 13.5 % (11.5-14.5)
[2017-09-18] MEDS: OXYCODONE HCL IR 5 MG TAB (IMMEDIATE RELEASE) PO PRN ×2 (07:34→15:45)
[2017-09-18] MEDS: METOPROLOL SUCC 25MG EXT REL TAB PO SCH (07:35)
[2017-09-18] MEDS: ASPIRIN 325 MG ECTAB PO SCH (07:35)
[2017-09-18] MEDS: DOCUSATE SODIUM 100 MG CAP PO SCH (07:35)
[2017-09-18 07:42] VITALS: BP 104/62; PULSE 50; TEMP 36.7; O2SAT 95
[2017-09-18 07:56] LABS: CALCIUM 8.1 mg/dl (8.5-10.1); CREATININE 0.52 mg/dl (0.60-1.20); POTASSIUM 4.1 mmol/L (3.5-5.1)
[2017-09-18] MEDS ORDERED: ASPEC325 PO (08:49)
[2017-09-18] MEDS ORDERED: RXC5 PO (08:49)
--- NOTE | 2017-09-18 08:51 | Discharge Instructions ---
Discharge Instructions Date of Service Sep 18, 2017. Admission Reason for Admission: Left Knee Degenerative Joint Disease Discharge Discharge Diagnosis / Problem: Left Total Knee Discharge Goals Goal(s): Decrease discomfort, Improve function Activity Recommendations Activity Limitations: as noted below . Instructions / Follow-Up Instructions / Follow-Up Activity and Therapy Recommendations: * If you are using [facility] then Physical Therapy will be provided until they feel you are ready to start Outpatient Physical Therapy. If you are not using a Home Health agency then Outpatient Physical Therapy should start about 3-5 days from your day of surgery. Therapy will last about 6-10 weeks * It is important not to put a pillow under your knee when you are relaxing or sleeping. It is just as important to make sure you are getting your knee perfectly straight as it is to regain your knee bend. * You were shown a series of exercises in the hospital. Do these exercises three times each day including the exercises you were shown in physical therapy. * Get up and walk several times each day. For the first four weeks, try not to stand or walk for more than one hour at a time. If you do stand or walk for more than one hour, you will not hurt anything, but your leg will likely swell. * As you feel comfortable, you may change from the walker or crutches to a cane and then to independent walking. Medications: * Narcotic You will likely be sent home from the hospital with a prescription for the narcotic pain medication that worked best throughout your stay. * Aspirin Most patients will be required to take Aspirin 325mg twice a day for 6 weeks after surgery. This is obtained [id number] and a prescription is not necessary. * Other medications may be prescribed for specific circumstances. If you have any questions, please call the office at . * Resume previous home medications unless otherwise instructed TEDs/Elastic Stockings: The white elastic stockings help limit swelling and prevent blood clots from forming in your legs.~ The more you wear them, the more they work. Wear them for six weeks. Showering: You may shower 5 days from the day of surgery. Let the soapy shower water run over the lucy. Do not scrub or soak the incision. Things To Watch For: * Drainage from the incision site that occurs more than one week after your surgery. * Increased redness at the incision site. * Fever above 102 degrees Fahrenheit. * Unusual chest pain or shortness of breath. * Call [facility] at with any of the above problems Follow-Up Visit: Follow-up with Dr. Leger 2 weeks after your day of surgery. An appointment was probably scheduled when you signed-up for surgery in the office. If you have any questions call Office Instructions: More detailed instructions as well as Frequently Asked Questions were provided in a folder by our office when you signed-up for surgery. Please review these instructions when you get home. If you have any further questions or concerns, please feel free to call the office at [phone] Current Hospital Diet Patient's current hospital diet: Regular Diet Discharge Diet Recommended Diet: Regular Diet Procedures Procedures Performed: Left Total Knee Arthroplasty Pending Studies Studies pending at discharge: no Medical Emergencies . Who to Call and When: Medical Emergencies: If at any time you feel your situation is an emergency, please call [phone] immediately. . Non-Emergent Contact Non-Emergency issues call your: Surgeon Call Non-Emergent contact if: wound has increased drainage, wound has increased redness . "Provider Documentation" section prepared by Mason Leger. . VTE Core Measure Inpt VTE Proph given/why not?: Other Anticoagulation (Aspirin 325 twice a day for 6 weeks)
[2017-09-18] MEDS ORDERED: MULTIVITAMIN TAB PO SCH (09:00)
[2017-09-18] MEDS ORDERED: BuPROPion SR 150 MG TABCR PO SCH (09:00)
[2017-09-18] MEDS ORDERED: ATORVASTATIN 20 MG TAB PO SCH (09:00)
--- NOTE | 2017-09-18 09:21 | PROGRESS NOTE ---
DATE: 09/18/2017 CHIEF COMPLAINT: Status post left total knee arthroplasty, postop day #1. PROGRESS: Keke was seen and examined at bedside today. Overall, she is doing very well. She has very little pain in her knee. She has already been up and ambulating around the hallways. She has no complaints. PHYSICAL EXAMINATION: LEFT KNEE: The dressing is clean and dry and the drain is to suction. She is sitting at bedside with her leg flexed at about 75 degrees. She has active dorsiflexion and plantarflexion of her left ankle and sensation is intact. LABORATORY DATA: She has an H&H of 11.7 and 35.2. Her glucose is 93. Her vital signs are all stable on room air. She is voiding on her own. Her drain only put out 100 mL. X-rays postoperatively of the left knee showed the prosthesis to be in anatomic alignment without any evidence of fracture, dislocation or loosening. IMPRESSION: Status post left total knee arthroplasty, postop day #1. PLAN: I had discussions with her about DVT prophylaxis. When she had her hip replaced, she was relatively immobile for a long period of time and she did develop a PE. She recently had her right knee replaced and she was only on aspirin for DVT prophylaxis and she did well with that. She is already up and ambulating in the hallways with her left knee. So, I am going to use aspirin and NADER hose stockings for DVT prophylaxis. We will continue the oxycodone for pain control. She will be seen by case management today and if she can get home health setup, she can be discharged to home later this afternoon. The nursing staff can change the dressing and pull the drain this afternoon.
--- NOTE | 2017-09-18 09:23 | DISCHARGE SUMMARY ---
DISCHARGE DIAGNOSIS: Primary osteoarthritis of the left knee. PROCEDURE: Left total knee arthroplasty on 09/17/[address] Mason Leger. DISCHARGE INSTRUCTIONS: 1. Aspirin 325 mg twice a day for 6 weeks. 2. NADER hose stockings for 6 weeks. 3. Oxycodone 5-10 mg every 4 hours as needed for pain. 4. Lipitor 20 mg daily. 5. Wellbutrin 150 mg daily. 6. Diclofenac 50 mg 3 times a day as needed. 7. Toprol 12.5 mg twice a day. 8. Stool softener twice a day. 9. Trazodone 100 mg at night as needed. 10. Follow up with Dr. Leger in 2 weeks. 11. Call the office of Dr. Leger with any questions or concerns. HOSPITAL COURSE: Keke is a pleasant 62-year-old female who presented to my office with chronic left knee pain. X-rays and clinical examination were diagnostic for primary osteoarthritis of the left knee. After failing conservative treatment, she elected to undergo a left total knee arthroplasty. On 09/17/2017, she arrived at [facility] and underwent a left knee replacement without complication. She had a spinal anesthetic and a left adductor nerve block. Postoperatively, she was started on aspirin for DVT prophylaxis and discharged to general orthopedic floor. Her hospital course was uneventful. On postop day #1, her H&H was stable at 11.7 and 35.2. She was up and ambulating very well with physical therapy and her pain was well controlled. The nursing staff changed the dressing and pulled the drain and when she had home health set up by the case management, she was discharged to home with the above instructions.
[2017-09-18 12:49] VITALS: BP 104/62; PULSE 50; TEMP 36.7; O2SAT 95
== END 2017-09-18 16:52 | disposition home health service (06) | DRG 470 ==
LOC: C.ACU 06:47 → C.MSN 07:25 → ENRESERV 13:16
PROVIDERS: ADMIT Orthopaedic Surgery; ATTEND Orthopaedic Surgery
PROC: 0SRD0J9 Replacement of Left Knee Joint with Synthetic Substitute, Cemented, Open Approach (ICD-10-PCS; principal; 2017-09-17 09:10)
DX: M17.12 Unilateral primary osteoarthritis, left knee (principal); F32.9 Major depressive disorder, single episode, unspecified; I10 Essential (primary) hypertension; I48.0 Paroxysmal atrial fibrillation; E78.5 Hyperlipidemia, unspecified; E66.9 Obesity, unspecified; Z68.39 Body mass index [BMI] 39.0-39.9, adult; Z86.711 Personal history of pulmonary embolism; Z96.651 Presence of right artificial knee joint; Z96.641 Presence of right artificial hip joint; Z87.891 Personal history of nicotine dependence; Z79.1 Long term (current) use of non-steroidal anti-inflammatories (NSAID); Z79.82 Long term (current) use of aspirin; Z79.899 Other long term (current) drug therapy; Z88.1 Allergy status to other antibiotic agents; Z82.49 Family history of ischemic heart disease and other diseases of the circulatory system

== ENCOUNTER 2022-05-26 13:26 | Inpatient (IN) ==
--- NOTE | 2022-05-26 14:05 | Emergency Department Note ---
ED Visit Note History of Present Illness: This patient was briefly evaluated while in triage. An abbreviated physical exam was performed. Pacemaker placed 05/12/22 and has been having symptoms since that time including right sided chest pain and SOB and referred to the ED by her PCP. Physical Exam: GENERAL: Non-toxic and in no acute distress. HEENT: Normocephalic. PERRLA. EOMI. HEART: Regular rate and rhythm. LUNGS: Clear to auscultation. No accessory muscle use. NEURO: Alert and oriented. No obvious neurological deficits. MUSCULOSKELETAL: No gross abnormalities. PSYCH: Patient is pleasant and answers all questions appropriately. Initial orders for labs and/or imaging were placed and patient was placed in the waiting area until a bed is available. Please see further documentation for the full ED course. .
[2022-05-26 14:33] LABS: Basophils # (auto) 0.07 K/uL (0-0.2); Basophils % (auto) 0.9 %; Eosinophils # (auto) 0.06 K/uL (0-0.50); Eosinophils % (auto) 0.8 %; Hematocrit (blood only) 41.8 % (34.1-44.9); Hemoglobin 14.1 g/dl (12.0-16.0); Immature Granulocytes # (auto) 0.02 K/uL (0.00-0.02); Immature Granulocytes % (auto) 0.3 %; Lymphocytes # (auto) 0.92 K/uL (1.2-3.4); Lymphocytes % (auto) 12.2 %; Mean Corpuscular Hemoglobin 31.8 pg (25.0-34.0); Mean Corpuscular Hgb Conc 33.7 g/dL (32.0-36.0); Mean Corpuscular Volume 94.1 fL (80.0-100.0); Mean Platelet Volume 8.6 fL (9.4-12.3); Monocytes # (auto) 0.59 K/uL (0.24-0.82); Monocytes % (auto) 7.8 %; Neutrophils # (auto) 5.89 K/uL (1.4-6.5); Platelet Count 318 K/uL (130-400); RDW Coefficient of Variation 14.6 % (11.5-14.5); RDW Standard Deviation 50.5 fL (36.4-46.3); Red Blood Count 4.44 M/uL (3.93-5.22); White Blood Count 7.55 K/ul (4.8-10.8)
[2022-05-26 14:43] LABS: Partial Thromboplastin Ratio 0.9; Partial Thromboplastin Time 24.5 Seconds (21.0-31.0); Prothrombin Time 11.1 Seconds (9.0-12.0)
[2022-05-26 15:02] LABS: Troponin I High Sensitivity 5.1 pg/ml (0-14)
[2022-05-26 15:04] LABS: Albumin Level 3.5 gm/dl (3.4-5.0); BUN Creatinine Ratio 19.4 (10-20); Bilirubin,Total 0.8 mg/dl (0.2-1.0); Calcium 9.2 mg/dl (8.5-10.1); Creatinine Clr Calc Pharmacy 91.5 ml/min; Est GFR (African American) 108.1 ml/min; Est GFR (Non-African American) 93.3 ml/min; Globulin 3.4 gm/dl (2.5-4.0); Potassium 4.4 mmol/L (3.5-5.1); Total Protein 6.9 gm/dl (6.0-8.3)
--- NOTE | 2022-05-26 15:05 | Cardiology Consultation ---
Date of Consultation May 26, 2022 Assessment & Plan (1) Hypoxia: (2) Chest pain, pleuritic: (3) Atrial pacemaker lead displacement: Plan Patient is a 67-year-old female presents in anticipation of atrial lead pacemaker revision but complaining of symptoms of shortness of breath and pleuritic discomfort. No overt heart failure on exam with chest x-ray demonstrating atelectatic changes right greater than left bases. Pacemaker interrogation reveals atrial lead not functioning at high output setting Recommendations: Pacemaker reprogrammed to VVI at 40 bpm backup pacing. Atrial lead pacing discontinued Discussed with hospitalist will likely need CTA of chest given pleuritic pain and atelectasis right base, transient hypoxia Anticipate atrial lead revision tomorrow afternoon, n.p.o. after midnight Continue current dosing furosemide History of Present Illness Reason for Consultation: Shortness of breath malfunctioning pacer lead Requesting Physician: Dr Sherwood History of Present Illness HePatient is a 67-year-old female with ongoing issues include 1. Paroxysmal atrial fibrillation 1996/PVT/sick sinus syndrome 2. Status post dual-chamber pacemaker insertion 05/12/2022 with atrial lead dislodgment planned revision 05/27/2022 3. Hypertension 4. Hyperlipidemia 5. Chronic tobacco use to use 6. History of prior pulmonary embolus. 7. Remote coronary angiography without obstructive disease 2010 Patient is a complex 67-year-old female with recent history of mechanical fall in January 2021 with concussion, hyponatremia, on subsequent laboratory testing who noted gradual improvement but recent complaints of dizziness and lightheadedness with sinus bradycardia, sick sinus syndrome observed. Patient underwent dual- chamber pacemaker insertion but notes on immediately on returning to home after device implantation having to do physical activity to care for her . Subsequent follow-up studies have demonstrated left atrial lead dysfunction with mobile lead noted on echocardiogram. Patient is continue to experience symptoms of sharp jabbing pain in the right chest and precordium. Recent symptoms of shortness of breath and transient hypoxia also noted. Patient diuretics were discontinued earlier this summer due to laboratory abnormalities but recently resumed due to increasing lower extremity edema and dyspnea. She does note edema has improved somewhat since changing medications Patient is scheduled for atrial lead revision in a.m. but presents now with worsening dyspnea transient hypoxia and pleuritic right-sided chest pain. Allergies Allergy/AdvReac Type Severity Reaction Status Date / Time domiphen Allergy Severe tongue Verified 05/26/22 16:34 swelling cephalexin Allergy Intermediate RASH Verified 05/26/22 16:34 Cephalosporins Allergy Intermediate hives, Verified 05/26/22 16:34 itching Ceepryn Chloride Allergy Severe tongue Uncoded 05/26/22 16:34 swelling Home Medications Medication Instructions Recorded Confirmed Type fluoxetine 40 mg capsule (Prozac) 40 mg PO QAM 09/29/19 05/12/22 History polyethylene glycol 3350 17 gram 17 g PO DAILY PRN Constipation 09/29/19 05/12/22 History oral powder packet (Miralax) trazodone 100 mg tablet 100 mg PO HS 09/29/19 05/12/22 History vitamin K2 40 mcg tablet 40 mcg PO QAM 09/29/19 05/12/22 History echinacea 125 mg capsule 125 mg PO DAILY 05/12/22 05/12/22 History furosemide 20 mg tablet 20 mg PO DAILY 05/12/22 05/12/22 History Patient History Medical History A-fib Acute diverticulitis Anxiety Depression Dyslipidemia GERD (gastroesophageal reflux disease) Pulmonary emboli Surgical History H/O section History of appendectomy History of bowel resection History of colostomy reversal History of hernia repair History of total hip arthroplasty History of total knee arthroplasty Hx of cholecystectomy Social History Smoking Status: Current every day smoker Tobacco Type: Cigarettes Hx Alcohol Use: No Hx Substance Use: No Preferred Language: Italian Current Living Situation: Spouse and Family Feels Safe at Home: Yes Review of Systems Review of Systems: All systems reviewed & are unremarkable except as noted in HPI & below Physical Exam Constitutional: well developed Eyes: PERRL, conjunctivae normal, anicteric sclerae ENMT: external ear and nose normal, oropharynx normal Neck: trachea midline, no thyromegaly Respiratory: Auscultation: + diminished lung sounds; no rales and no wheezes Cardiovascular: Rate/Rhythm: regular rate and regular rhythm Heart Sounds: no murmur and no cardiac rub Vessels: no JVD Extremities: + edema (1+) Gastrointestinal (Abdomen): Percussion/Palpation: + abdomen tender and abdomen soft Chronic midline incision with small incisional drainage Musculoskeletal: no cyanosis or clubbing, extremities motor strength 5/5 Results & Data ([facility]) Vital Signs (Past 12 Hours) Vital Signs Temp Pulse Resp BP Pulse Ox O2 Del Method 05/26/22 14:02 37 C 68 18 111/67 92 Room Air Laboratory Results Laboratory Results - last 24 hr 05/26/22 05/26/22 05/26/22 14:23 14:23 14:23 WBC 7.55 RBC 4.44 Hgb 14.1 Hct 41.8 MCV 94.1 MCH 31.8 MCHC 33.7 RDW Std Deviation 50.5 H RDW Coeff of Forrest 14.6 H Plt Count 318 MPV 8.6 L Immature Gran % (Auto) 0.3 Neut % (Auto) 78.0 Lymph % (Auto) 12.2 [place] % (Auto) 7.8 Eos % (Auto) 0.8 Baso % (Auto) 0.9 Neut # (Auto) 5.89 Lymph # (Auto) 0.92 L [place] # (Auto) 0.59 Eos # (Auto) 0.06 Baso # (Auto) 0.07 Immature Gran # (Auto) 0.02 PT 11.1 INR 1.0 APTT 24.5 PTT Ratio 0.9 Sodium 139 Potassium 4.4 Chloride 101 Carbon Dioxide 31 Anion Gap 7 BUN 12 Creatinine 0.62 Est Cr Clr Drug Dosing 91.5 Est GFR ( Amer) 108.1 Est GFR (Non-Af Amer) 93.3 BUN/Creatinine Ratio 19.4 Glucose 84 Calcium 9.2 Total Bilirubin 0.8 AST 11 L ALT 9 Alkaline Phosphatase 105 H Troponin I High Sens 5.1 Total Protein 6.9 Albumin 3.5 Globulin 3.4 Albumin/Globulin Ratio 1.0 Lipase 18 Diagnostic Findings Echocardiogram 05/11/2022 The primary indication after review was deemed appropriate and the examination was performed. Normal LV chamber size and wall thickness. Normal LV systolic function without regional wall motion abnormalities. Calculated LV ejection Fraction = 55% (bi-plane method of discs). Normal diastolic function. Mild mitral regurgitation. Borderline pulmonary hypertension. The estimated pulmonary artery systolic pressure is 40mm Hg. Chest x-ray 05/26/2028 per personal review Bilateral atelectasis right greater than left with volume loss right base trivial basilar effusions no pulmonary edema
--- NOTE | 2022-05-26 15:33 | XRay Report ---
XR chest 1V portable CLINICAL HISTORY: Chest Pain TECHNIQUE: Single frontal radiograph of the chest was obtained. Comparison: Comparison is made to chest radiograph 05/12/2022 FINDINGS: Dual lead pacemaker is seen. The cardiomediastinal silhouette is normal. Bilateral lower lung predomi nant airspace opacities are seen. Right pleural effusion and likely left pleural effusion. IMPRESSION: 1. Bilateral lower lung predominant airspace opacities which may represent atelectasis, pneumonia, a nd/or aspiration. 2. Right pleural effusion and likely left pleural effusion. No evidence of pneumothorax. ACT 112: Negative or not required by law. Electronically signed by: Myles Gunter M.D. 05/26/2022 3:32 PM
[2022-05-26] MEDS ORDERED: KETOROLAC TROMETHAMINE 15 MG/ML VIAL IV ONE (15:38)
--- NOTE | 2022-05-26 15:58 | Emergency Department Note ---
Impression & Plan Chest pain, pleuritic, Atrial pacemaker lead displacement ED Provider Note NAME: LEONIDAS FRANCISCO AGE: 67 SEX: F : 1955 ARRIVES VIA: Walk-In INFORMANT: Patient ED PROVIDER(S): Lucio Peters DO CHIEF COMPLAINT: chest pain and shortness of breath HPI: Patient is a 67-year-old female with with a history of A. fib, GERD, depression, anxiety, PE with device placement on [address] Sherwood. Since then she has been more short of breath and has not been feeling well. She had an echo which shows the atrial lead is not in place and functioning. She admits to reproducible pleuritic chest pain with breathing. Pain is an 8 out of 10 and worse with breathing. Admits to chronic belly pain for the past 4 years which is unchanged. No dysuria urgency or frequency. No other exacerbating or remitting factors. ROS: See above HPI for pertinent positives & negatives. A total of 10 systems reviewed and were otherwise negative. PAST MEDICAL HISTORY:See Below PAST SURGICAL HISTORY:See Below FAMILY HISTORY:See Below SOCIAL HISTORY:See Below HOME MEDICATIONS:See Below ALLERGIES:See Below VITALS:See Below PHYSICAL EXAMINATION: GENERAL: Sitting up in bed, alert, well appearing, well nourished, no distress, non-toxic EYE EXAM: normal conjunctiva. OROPHARYNX: no exudate, no erythema, lips, buccal mucosa, and tongue normal and mucous membranes are moist NECK: supple, no nuchal rigidity, no adenopathy, non-tender CHEST: Pacer in left chest wall LUNGS: Clear to auscultation. Normal chest wall mechanics HEART: no murmurs, S1 normal and S2 normal ABDOMEN: abdomen soft, mild diffuse tenderness, normo-active bowel sounds, no masses, no rebound or guarding. UPPER EXTREMITIES: upper extremities are grossly normal. LOWER EXTREMITIES: No pitting edema. NEURO EXAM: Normal sensorium, cranial nerves II-XII grossly intact, normal speech, no gross weakness of arms, no gross weakness of legs. MEDICAL DECISION MAKING: Patient is a six 7-year-old female who presents ER for above-stated complaint. She was referred in by cardiology. IV was established blood work is obtained. Labs show no significant leukocytosis or anemia. INR unremarkable. BMP along with LFTs bilirubin and troponin was negative. Pro-Fito was negative. UA was clean. COVID was negative. Chest x-ray shows pleural effusion. Patient was given IV Toradol. Updated bedside. Patient was admitted to the hospitalist for further evaluation. Triage Nursing notes reviewed. Limited review of prior medical records performed Vital Signs: reviewed and remarkable for no significant abnormalities Differential diagnosis: Differential diagnoses includes but is not limited to pneumonia, bronchitis, SCRAPER MEAT D/Asthma exacerbation, pneumothorax, pulmonary embolism, congestive heart failure, acute coronary syndrome ER treatment provided: See below Diagnostics interpreted by me: ECG: Sinus rhythm rate of 68 No PVCs QTC 578 Cardiac Monitoring: An order was placed for continuous cardiac monitoring. The monitor shows a rate of 70 with sinus rhythm. Laboratory studies: As stated above and show below. Imaging studies: Verbal AP upright 1 view of the chest shows pleural effusions Consultation(s): Patient was seen by Dr. Kiran Rhoades initially as I assisted in getting the patient in room. Recommend admission discussed with the hospitalist Procedures: none Critical Care: None Past Med/Surg History Medical History A-fib Acute diverticulitis Anxiety Depression Dyslipidemia GERD (gastroesophageal reflux disease) Pulmonary emboli Surgical History H/O section History of appendectomy History of bowel resection History of colostomy reversal History of hernia repair History of total hip arthroplasty History of total knee arthroplasty Hx of cholecystectomy Family History (Updated 05/26/22 @ 16:47 by Mackenzie Hurd PA-C) Mother , 76 Myocardial infarction Father , 76 Stroke Social History (Updated 05/26/22 @ 16:48 by Mackenzie Hurd PA-C) Smoking Status: Current every day smoker Tobacco Type: Cigarettes packs per day: 1; Years Smoked: 40; Hx Alcohol Use: No Hx Substance Use: No Preferred Language: Latvian 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 Beliefs That Will Affect Care: None marital status: Current Living Situation: Spouse Feels Safe at Home: Yes Safety Concerns: Feels Safe At This Time Assistive Devices: Cane, Denture - Upper and Denture - Lower Allergies Allergies Allergy/AdvReac Type Severity Reaction Status Date / Time domiphen Allergy Severe tongue Verified 05/26/22 16:34 swelling cephalexin Allergy Intermediate RASH Verified 05/26/22 16:34 Cephalosporins Allergy Intermediate hives, Verified 05/26/22 16:34 itching Ceepryn Chloride Allergy Severe tongue Uncoded 05/26/22 16:34 swelling Home Meds Home Medications Medication Instructions Recorded Confirmed fluoxetine 40 mg capsule (Prozac) 40 mg PO QAM 09/29/19 05/26/22 polyethylene glycol 3350 17 gram 17 g PO DAILY PRN Constipation 09/29/19 05/26/22 oral powder packet (Miralax) trazodone 100 mg tablet 100 mg PO HS 09/29/19 05/26/22 vitamin K2 40 mcg tablet 40 mcg PO QAM 09/29/19 05/26/22 echinacea 125 mg capsule 125 mg PO DAILY 05/12/22 05/26/22 furosemide 20 mg tablet 20 mg PO DAILY 05/12/22 05/26/22 spironolactone 25 mg tablet 12.5 mg PO DAILY 05/26/22 05/26/22 (Aldactone) Results & Data (ED) Vital Signs Vital Signs - 24 hr 05/26/22 14:02 05/26/22 15:29 05/26/22 15:33 Temperature 37 C Temperature Source Oral Pulse Rate 68 72 Pulse Rate from SpO2 Sensor 72 Respiratory Rate 18 17 Respiratory Effort / Characteristics Non-Labored Spontaneous Respiratory Depth Normal Respiratory Pattern Regular Blood Pressure 111/67 Blood Pressure Mean 81 Blood Pressure Position Sitting Pulse Oximetry 92 93 93 Oxygen Delivery Method Room Air Room Air Oxygen Flow Rate 0 Sepsis Recent Fever Within 48 Hours No Sepsis New/Unexplained Change in Mental Status No Sepsis Action Taken by Nursing No Action Required Laboratory Data Result diagrams: 05/26/22 14:23 05/26/22 14:23 Lab Results 05/26/22 05/26/22 05/26/22 Range/Units 14:23 14:23 14:23 WBC 7.55 (4.8-10.8) K/ul RBC 4.44 (3.93-5.22) M/uL Hgb 14.1 (12.0-16.0) g/dl Hct 41.8 (34.1-44.9) % MCV 94.1 (80.0-100.0) fL MCH 31.8 (25.0-34.0) pg MCHC 33.7 (32.0-36.0) g/dL RDW Std Deviation 50.5 H (36.4-46.3) fL RDW Coeff of Forrest 14.6 H (11.5-14.5) % Plt Count 318 (130-400) K/uL MPV 8.6 L (9.4-12.3) fL Immature Gran % (Auto) 0.3 % Neut % (Auto) 78.0 % Lymph % (Auto) 12.2 % Sherman % (Auto) 7.8 % Eos % (Auto) 0.8 % Baso % (Auto) 0.9 % Neut # (Auto) 5.89 (1.4-6.5) K/uL Lymph # (Auto) 0.92 L (1.2-3.4) K/uL Sherman # (Auto) 0.59 (0.24-0.82) K/uL Eos # (Auto) 0.06 (0-0.50) K/uL Baso # (Auto) 0.07 (0-0.2) K/uL Immature Gran # (Auto) 0.02 (0.00-0.02) K/uL PT 11.1 (9.0-12.0) Seconds INR 1.0 (0.9-1.1) APTT 24.5 (21.0-31.0) Seconds PTT Ratio 0.9 Sodium 139 (136-145) mmol/L Potassium 4.4 (3.5-5.1) mmol/L Chloride 101 (98-107) mmol/L Carbon Dioxide 31 (21-32) mmol/L Anion Gap 7 (3-11) BUN 12 (6-23) mg/dl Creatinine 0.62 (0.6-1.2) mg/dl Est Cr Clr Drug Dosing 91.5 ml/min Est GFR ( Amer) 108.1 ml/min Est GFR (Non-Af Amer) 93.3 ml/min BUN/Creatinine Ratio 19.4 (10-20) Glucose 84 (70-99(Fasting)) mg/dl Calcium 9.2 (8.5-10.1) mg/dl Magnesium (1.7-2.4) mg/dl Total Bilirubin 0.8 (0.2-1.0) mg/dl AST 11 L (13-39) U/L ALT 9 (7-52) U/L Alkaline Phosphatase 105 H (34-104) U/L Troponin I High Sens 5.1 (0-14) pg/ml Total Protein 6.9 (6.0-8.3) gm/dl Albumin 3.5 (3.4-5.0) gm/dl Globulin 3.4 (2.5-4.0) gm/dl Albumin/Globulin Ratio 1.0 (0.9-2) Lipase 18 (11-82) U/L SARS-CoV-2, RNA, NAAT (NEGATIVE) 05/26/22 05/26/22 Range/Units 14:23 15:29 WBC (4.8-10.8) K/ul RBC (3.93-5.22) M/uL Hgb (12.0-16.0) g/dl Hct (34.1-44.9) % MCV (80.0-100.0) fL MCH (25.0-34.0) pg MCHC (32.0-36.0) g/dL RDW Std Deviation (36.4-46.3) fL RDW Coeff of Forrest (11.5-14.5) % Plt Count (130-400) K/uL MPV (9.4-12.3) fL Immature Gran % (Auto) % Neut % (Auto) % Lymph % (Auto) % Sherman % (Auto) % Eos % (Auto) % Baso % (Auto) % Neut # (Auto) (1.4-6.5) K/uL Lymph # (Auto) (1.2-3.4) K/uL Sherman # (Auto) (0.24-0.82) K/uL Eos # (Auto) (0-0.50) K/uL Baso # (Auto) (0-0.2) K/uL Immature Gran # (Auto) (0.00-0.02) K/uL PT (9.0-12.0) Seconds INR (0.9-1.1) APTT (21.0-31.0) Seconds PTT Ratio Sodium (136-145) mmol/L Potassium (3.5-5.1) mmol/L Chloride (98-107) mmol/L Carbon Dioxide (21-32) mmol/L Anion Gap (3-11) BUN (6-23) mg/dl Creatinine (0.6-1.2) mg/dl Est Cr Clr Drug Dosing ml/min Est GFR ( Amer) ml/min Est GFR (Non-Af Amer) ml/min BUN/Creatinine Ratio (10-20) Glucose (70-99(Fasting)) mg/dl Calcium (8.5-10.1) mg/dl Magnesium 1.8 (1.7-2.4) mg/dl Total Bilirubin (0.2-1.0) mg/dl AST (13-39) U/L ALT (7-52) U/L Alkaline Phosphatase (34-104) U/L Troponin I High Sens (0-14) pg/ml Total Protein (6.0-8.3) gm/dl Albumin (3.4-5.0) gm/dl Globulin (2.5-4.0) gm/dl Albumin/Globulin Ratio (0.9-2) Lipase (11-82) U/L SARS-CoV-2, RNA, NAAT NEGATIVE (NEGATIVE) Administered Medications Polyethylene Glycol (Polyethylene (Miralax) 17 Gm Pack) 17 gm PO DAILY BROOKE Stop: 06/25/22 19:00 Last Admin: 05/26/22 20:12 Dose: 17 gm Documented By: JORDYM Discontinued Medications Ioversol (Optiray 300 500ml) 98 ml IV ONCE ONE Stop: 05/26/22 17:24 Last Admin: 05/26/22 17:23 Dose: 98 ml Documented By: LEXIP Ketorolac Tromethamine (Ketorolac Tromethamine 15 Mg/Ml Vial) 10 mg IV NOW ONE Stop: 05/26/22 15:39 Last Admin: 05/26/22 16:08 Dose: 10 mg Documented By: AM Imaging Data Radiologist's Impression: Chest X-Ray 05/26/22 14:05 XR chest 1V portable CLINICAL HISTORY: Chest Pain TECHNIQUE: Single frontal radiograph of the chest was obtained. Comparison: Comparison is made to chest radiograph 05/12/2022 FINDINGS: Dual lead pacemaker is seen. The cardiomediastinal silhouette is normal. Bilateral lower lung predominant airspace opacities are seen. Right pleural effusion and likely left pleural effusion. IMPRESSION: 1. Bilateral lower lung predominant airspace opacities which may represent atelectasis, pneumonia, and/or aspiration. 2. Right pleural effusion and likely left pleural effusion. No evidence of pneumothorax. ACT 112: Negative or not required by law. Electronically signed by: Myles Gunter M.D. 05/26/2022 3:32 PM Discharge Plan Visit Data Chief Complaint: Chest Pain Stated Complaint: chest pains, sob, lightheaded ED Provider: Lucio Peters Discharge Problem: Chest pain, pleuritic, Atrial pacemaker lead displacement Patient Disposition: Admitted As Inpatient Discharge Instructions Interventions: ED Discharge Assessment Last Done: 05/26/22 16:50
--- NOTE | 2022-05-26 16:39 | History & Physical Report ---
Date of Service May 26, 2022 Assessment & Plan (1) Atrial pacemaker lead displacement: (2) Chest pain, pleuritic: (3) Hypoxia: Plan This is a 67-year-old female who has a significant past medical history of PAF, PSVT, HTN, HLD, GERD, Chronic tobacco use, hx of PE, depression with anxiety, history of rectosigmoid resection secondary to diverticulitis who presents to ED referral of cardiology for pacemaker lead revision as well as right-sided chest pain for approximately 10 days. Pleuritic R sided chest pain Transient/exertional Hypoxia admit to PCU obtain CTA chest to r/o PE, b/l venous Doppler r/o dvt 2/2 swelling, calf pain pleuritic chest pain/hypoxia possibly in setting of post operative atelectasis will encourage incentive spirometry q1h obtain procalcitonin and bnp doubt infectious as pt afebrile, chronic cough from smoking but not worse will continue home lasix and aldactone dose for now supplemental O2 if needed Atrial pacemaker lead displacement Hx of SSS s/p PPM on 05/12/[address] Sherwood hx of PAF revealed on op ECHO cardiology on board NPO after midnight plan for atrial lead revision by Dr. Sherwood 05/27/22 in afternoon appreciate cardiology input Chronic abdominal ventral wound hx of hernia repair 4 years ago, wound has been present since then increased drainage from site, no surrounding erythema consult wound nurse obtain surface wound culture will hold on antibiotics for now given no erythema, leukocytosis or fever obtain CT abd/pelvis 2/2 pain, drainage Depression w/ anxiety continue prozac and trazodone mood stable Chronic tobacco abuse encourage cessation declines nicotine patch at time Chronic L shoulder pain 2/2 fall in January 2022 baseline DVT ppx: SCDS for now 2/2 pacemaker lead revision tomorrow, consider chemical prophylaxis post op, pt w/ hx of PE, awaiting CTA results as well FULL CODE PCP: Kristine Hayden Dispo: PCU, NPO after midnight Pt was seen and examined in collaboration with Dr. Spangler, please see addendum History of Present Illness Chief Complaint: Referred by Dr. Sherwood for pacemaker lead revision; R sided Chest pain x 10 days. Primary Care Provider: Pedro Hayden, DO This is a 67-year-old female who has a significant past medical history of PAF, PSVT, HTN, HLD, GERD, Chronic tobacco use, hx of PE, depression with anxiety, history of rectosigmoid resection secondary to diverticulitis who presents to ED referral of cardiology for pacemaker lead revision as well as right-sided chest pain for approximately 10 days. Of significance patient underwent pacemaker placement secondary to sick sinus syndrome on 05/12/2022. She underwent echocardiogram as outpatient by cardiology who noted that her atrial lead is malfunctioning. Ever since returning home from pacemaker procedure she has not been doing well. 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 He does have a caregiver that comes 8 hours a day. Her daughter is at bedside. She admits to days after procedure developing right-sided chest pain. Pain radiates to her back, is worse with inspiration and exertion, improved with rest, has never experienced before, rated a 8 out of 10 at its worst, currently 3 out of 10 and has not tried anything to improve pain. She also admits to having a dizziness and a sensation of feeling like she is going to pass out as well as shortness of breath prior to pacemaker placement. This has not improved. She admits shortness of breath has gotten worse with exertion. She does have a chronic cough secondary to smoking and feels this is unchanged. She denies any significant hemoptysis or sputum production. She also denies any fever, chills, sweats, syncope, nausea, vomiting, diarrhea, increased urgency with urination or hematuria. She does admit to being constipated and having very small bowel movements. She also admits to having dysuria and increased urinary frequency secondary to Lasix. She feels that she has gained weight approximately 20 pounds since having her pacemaker placed; however after reviewing weights in chart it appears she has gained approximately 2 kg. She also admits to chronic abdominal pain ever since having hernia repair approximately 4 years ago. She has had an open wound since then is admitting to increased drainage to the site. In ED patient made hemodynamically stable and was not requiring any oxygen supplementation; however, according to nurse at bedside when patient ambulated to bathroom she became very short of breath and did desaturate to 88%. She did improve to 93 to 95% on room air with deep inhalation. Chest x-ray revealed bilateral lower lung airspace opacity which may represent atelectasis, pneumonia or aspiration. Right pleural effusion and likely left pleural effusion no evidence of pneumothorax. Her CBC and CMP was relatively unremarkable. Troponin WNL. EKG revealed 68 bpm normal sinus rhythm without ST or T wave change. Allergies Allergy/AdvReac Type Severity Reaction Status Date / Time domiphen Allergy Severe tongue Verified 05/26/22 16:34 swelling cephalexin Allergy Intermediate RASH Verified 05/26/22 16:34 Cephalosporins Allergy Intermediate hives, Verified 05/26/22 16:34 itching Ceepryn Chloride Allergy Severe tongue Uncoded 05/26/22 16:34 swelling Home Medications Medication Instructions Recorded Confirmed Type fluoxetine 40 mg capsule (Prozac) 40 mg PO QAM 09/29/19 05/26/22 History polyethylene glycol 3350 17 gram 17 g PO DAILY PRN Constipation 09/29/19 05/26/22 History oral powder packet (Miralax) trazodone 100 mg tablet 100 mg PO HS 09/29/19 05/26/22 History vitamin K2 40 mcg tablet 40 mcg PO QAM 09/29/19 05/26/22 History echinacea 125 mg capsule 125 mg PO DAILY 05/12/22 05/26/22 History furosemide 20 mg tablet 20 mg PO DAILY 05/12/22 05/26/22 History spironolactone 25 mg tablet 12.5 mg PO DAILY 05/26/22 05/26/22 History (Aldactone) Past Med/Surg History Medical History A-fib Acute diverticulitis Anxiety Depression Dyslipidemia GERD (gastroesophageal reflux disease) Pulmonary emboli Surgical History H/O section History of appendectomy History of bowel resection History of colostomy reversal History of hernia repair History of total hip arthroplasty History of total knee arthroplasty Hx of cholecystectomy Family History (Updated 05/26/22 @ 16:47 by Mackenzie Hurd PA-C) Mother , 76 Myocardial infarction Father , 76 Stroke Social History (Updated 05/26/22 @ 16:48 by Mackenzie Hurd PA-C) Smoking Status: Current every day smoker Tobacco Type: Cigarettes packs per day: 1; Years Smoked: 40; Hx Alcohol Use: No Hx Substance Use: No Preferred Language: Iraqi 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: No Beliefs That Will Affect Care: None marital status: Current Living Situation: Spouse Feels Safe at Home: Yes Safety Concerns: Feels Safe At This Time Assistive Devices: Cane, Denture - Upper and Denture - Lower Review of Systems Review of Systems: All systems reviewed & are unremarkable except as noted in HPI & below Physical Exam Physical Exam: Constitutional: WD/WN, F, appears acutely ill, vitals as above, NAD, sitting up in bed, pleasant, conversing easily Head: Normocephalic, Atraumatic Eyes: PERRL, conjunctivae normal, anicteric sclerae ENMT: external ear and nose normal, oropharynx normal Neck: trachea midline, no thyromegaly normal visual inspection Respiratory: normal respiratory effort, lungs clear to auscultation with diminished breath sounds at RLB, no wheeze, rales, rhonchi. Normal insp/exp effort, no accessory muscle use Cardiovascular: RRR, no murmur, b/lnonpitting edema Vessels: no JVD or carotid bruit Chest: normal inspection of chest, + pacer insertion LACW, steris in place, incision w/o erythema or pain, no pain to palp chest wall Abdomen: normal bowel sounds, soft, +tender to palp, + midline incision with brown drainage, no hepatosplenomegaly, no rebound, guarding/rigidity Musculoskeletal: no cyanosis or clubbing, extremities motor strength 5/5 Skin: no rashes, warm and dry normal turgor Neurologic: PERRL, EOMI, accommodation nl, no face palsy, no dysarthria CN's II-XI intact bilaterally and moves all extremities Psychiatric: A+Ox3, euthymic affect Lymphatic: no cervical or axillary lymphadenopathy : deferred Results & Data Results & Data ([facility]) Vital Signs (Past 12 Hours) Vital Signs Temp Pulse Resp BP Pulse Ox O2 Del Method O2 Flow Rate 05/26/22 16:03 121/71 05/26/22 16:03 69 17 91 05/26/22 16:00 70 19 89 L 05/26/22 15:33 72 17 93 05/26/22 15:29 93 Room Air 0 05/26/22 14:02 37 C 68 18 111/67 92 Room Air Diagnostic Findings Chest X-Ray 05/26/22 14:05 XR chest 1V portable CLINICAL HISTORY: Chest Pain TECHNIQUE: Single frontal radiograph of the chest was obtained. Comparison: Comparison is made to chest radiograph 05/12/2022 FINDINGS: Dual lead pacemaker is seen. The cardiomediastinal silhouette is normal. Bilateral lower lung predominant airspace opacities are seen. Right pleural effusion and likely left pleural effusion. IMPRESSION: 1. Bilateral lower lung predominant airspace opacities which may represent atelectasis, pneumonia, and/or aspiration. 2. Right pleural effusion and likely left pleural effusion. No evidence of pneumothorax. ACT 112: Negative or not required by law. Electronically signed by: Myles Gunter M.D. 05/26/2022 3:32 PM Echocardiogram 05/11/2022 The primary indication after review was deemed appropriate and the examination was performed. Normal LV chamber size and wall thickness. Normal LV systolic function without regional wall motion abnormalities. Calculated LV ejection Fraction = 55% (bi-plane method of discs). Normal diastolic function. Mild mitral regurgitation. Borderline pulmonary hypertension. The estimated pulmonary artery systolic pressure is 40mm Hg. Medications Administered Medication List Discontinued Medications Ketorolac Tromethamine (Ketorolac Tromethamine 15 Mg/Ml Vial) 10 mg IV NOW ONE Stop: 05/26/22 15:39 Last Admin: 05/26/22 16:08 Dose: 10 mg Documented By: AM ECG Rate (beats per minute): 68 Rhythm: normal sinus Additional Comments: qtc 578ms COVID-19 Results Results COVID-19 Adm Lab Results: RBC 4.44 M/uL (3.93-5.22) 05/26/22 WBC 7.55 K/ul (4.8-10.8) 05/26/22 Hgb 14.1 g/dl (12.0-16.0) 05/26/22 Hct 41.8 % (34.1-44.9) 05/26/22 Plt Count 318 K/uL (130-400) 05/26/22 Neutrophils (%) (Auto) 78.0 % 05/26/22 Lymphocytes (%) (Auto) 12.2 % 05/26/22 Monocytes # (Auto) 0.59 K/uL (0.24-0.82) 05/26/22 Eosinophils # (Auto) 0.06 K/uL (0-0.50) 05/26/22 Immature Granulocyte % (Auto) 0.3 % 05/26/22 Neutrophils # (Auto) 5.89 K/uL (1.4-6.5) 05/26/22 Lymphocytes # (Auto) 0.92 K/uL (1.2-3.4) L 05/26/22 Monocytes # (Auto) 0.59 K/uL (0.24-0.82) 05/26/22 Eosinophils # (Auto) 0.06 K/uL (0-0.50) 05/26/22 Basophils # (Auto) 0.07 K/uL (0-0.2) 05/26/22 Immature Granulocyte # (Auto) 0.02 K/uL (0.00-0.02) 2 Na 139 mmol/L (136-145) 05/26/22 K 4.4 mmol/L (3.5-5.1) 05/26/22 Cl 101 mmol/L (98-107) 05/26/22 CO2 31 mmol/L (21-32) 05/26/22 Anion Gap 7 (3-11) 05/26/22 BUN 12 mg/dl (6-23) 05/26/22 Creatinine 0.62 mg/dl (0.6-1.2) 05/26/22 BUN/Creatinine Ratio 19.4 (10-20) 05/26/22 Glucose Level 84 mg/dl (70-99(Fasting)) 05/26/22 Ca 9.2 mg/dl (8.5-10.1) 05/26/22 Total Bilirubin 0.8 mg/dl (0.2-1.0) 05/26/22 AST/SGOT 11 U/L (13-39) L 05/26/22 ALT/SGPT 9 U/L (7-52) 05/26/22 Alkaline Phosphatase 105 U/L (34-104) H 05/26/22 Total Protein 6.9 gm/dl (6.0-8.3) 05/26/22 Albumin 3.5 gm/dl (3.4-5.0) 05/26/22 Globulin 3.4 gm/dl (2.5-4.0) 05/26/22 Albumin/Globulin Ratio 1.0 (0.9-2) 05/26/22 Procalcitonin < 0.05 ng/ml (0-0.5) 05/26/22 PTT 24.5 Seconds (21.0-31.0) 05/26/22 INR 1.0 (0.9-1.1) 05/26/22 SARS-CoV-2, RNA, NAAT NEGATIVE (NEGATIVE) 05/26/22 Chest X-Ray 05/26/22 Code Status & VTE Plan Code Status FULL CODE VTE Prophylaxis Plan VTE Prophylaxis will be ordered: Yes Supervising Physician Co-Signing Physician Notes Pt was seen and examined. Agreed with Mackenzie ZHOU exam, assessment and plan. 67-year-old female who has a significant past medical history of PAF, PSVT, HTN, HLD, GERD, Chronic tobacco use, hx of PE, depression with anxiety, history of rectosigmoid resection secondary to diverticulitis was sent to the ER by her cardiology for pacemaker lead revision and chest discomfort. Pt had pacemaker placed on 05/12. She said that her symptoms did not improve after the pacemaker. She said that she is has been having pleuritic chest pain associated with SOB and fatigue. Chest pain radiates to her back, is worse with inspiration and exertion, improved with rest, has never experienced before, rated a 8 out of 10 at its worst, currently 3 out of 10 and has not tried anything to improve. Daughter said that she has a chronic cough. Chest x-ray revealed bilateral lower lung airspace opacity which may represent atelectasis, pneumonia or aspiration. Right pleural effusion and likely left pleural effusion no evidence of pneumothorax. Pt is afebrile and no leukocytosis. Cardiology on board recommended to continue outpatient lasix dose. Plan for pacemaker revision tomorrow. Will make NPO. Nathan get CTA chest to r/o PA due to her pleuritic chest pain and SOB. Will check procalcitonin and BNP. Consider to start on abx if CTA chest showed evidence PNA and procalcitonin elevate. Will get CT/Abd/pelvis since pt continues to have oozing at the incision area from her hernia surgery that happened 4 yrs ago. Continue monitor closely closely, MD Crys
[2022-05-26 16:46] LABS: Appearance Urine Clear (Clear); Bacteria Urine Automated Negative (Negative); Bilirubin Urine Negative (Negative); Blood Urine 1+ (Negative); Cast Urine Automated 0 /lpf (0-5); Color Urine Yellow; Glucose Urine UA Negative (Negative); Ketones Urine 1+ (Negative); Leukocyte Esterase Urine Negative (Negative); Nitrite Urine Negative (Negative); Protein Urine Negative (Negative); RBC Urine Automated 0-4 /hpf (0-4); Specific Gravity Urine 1.007 (1.000-1.030); Urobilinogen Urine Negative (Negative)
[2022-05-26] MEDS ORDERED: OPTIRAY 300 500mL IV ONE (17:23)
--- NOTE | 2022-05-26 17:46 | CT Scan Report ---
CT angio chest PE protocol, CT abd pelvis IV con only CT DOSE: 926.93 mGy.cm HISTORY: 67 years-old Female with PE. Acute shortness of breath with chest and abdominal pain. Repo rted wound of the abdomen TECHNIQUE: Multiple CTA images of the chest were obtained after the intravenous administration of 98 ml Optiray. Coronal and sagittal MIPS were obtained from the axial data set and were submitted for [employer]. All measurements were obtained according to NASCET criteria. CT abdomen and pelvis with IV co ntrast only was also obtained. A dose lowering technique was utilized adhering to the principles of A LYNDSAY. COMPARISON: CT abdomen and pelvis 09/29/2019 FINDINGS: CTA: The heart is upper limits of normal in size. Small pericardial effusion. Left subclavian pacer. Mild coronary artery calcifications. Atherosclerosis of the thoracic aorta with patency of the imaged grea t vessels. Unremarkable pulmonary artery. No pulmonary emboli identified. CT CHEST: Subcentimeter hypodense nodule of the posterior right thyroid. Coarse left thyroid lobe calcification . No pathologically enlarged lymph nodes. Small left and moderate right pleural effusions. Right grea ter than left dependent bibasilar consolidation. No pneumothorax. There is mild pulmonary emphysema. Bronchial wall thickening with mild right basilar mucous plugging. Subcentimeter calcified granuloma of the left lower lobe. Mild intralobular septal thickening. Mild generalized body wall edema. Multil evel degenerative changes of the spine. No destructive lytic or blastic osseous lesions identified. CT ABDOMEN AND PELVIS: No pneumatosis or pneumoperitoneum. Unremarkable spleen, moderately atrophic pancreas and adrenal gla nds. Cholecystectomy with likely postsurgical intrahepatic and extrahepatic biliary ductal dilation, similar to prior. Numerous hepatic cysts are redemonstrated measuring up to 4 cm. Mild hepatomegaly. Patent portal vein. 4 mm nonobstructing calculus of the superior pole right kidney. 7 mm nonobstructing calculus of the i nferior pole left kidney. There are a few cysts of the bilateral kidneys measuring up to 1.7 cm. No u reteral calculi or hydronephrosis identified. Urinary bladder wall thickening with partial distention . The pelvic structures are suboptimally visualized secondary to streak artifact from left hip arthro plasty. Pelvic basin phleboliths. Atherosclerosis of the abdominal aorta without aneurysm. No lymphad enopathy identified retroaortic left renal vein. Mild nonspecific distal esophageal wall thickening. No bowel obstruction or bowel wall thickening. Co lonic diverticulosis. Moderate colonic fecal retention. The appendix is not visualized. Mild diastase s recti with scarring of the lower anterior abdominal/pelvic wall. Degenerative changes of the spine and right hip. Left hip total joint arthroplasty. IMPRESSION: 1. No pulmonary emboli identified. 2. Small left and moderate right pleural effusions. Right basilar airspace opacities may represent at electasis versus pneumonia. 3. Mild intralobular septal thickening may represent a component of pulmonary edema. 4. No bowel obstruction or bowel wall thickening. 5. Nonobstructing bilateral nephrolithiasis. 6. Additional findings as above. ACT 112: Negative or not required by law. The above report was generated using voice recognition software. It may contain grammatical, syntax o r spelling errors. Electronically signed by: Vern Wolfe M.D. 05/26/2022 5:44 PM
[2022-05-26] MEDS ORDERED: ALUMINUM/MAGNESIUM SUSP 30 ML UDC PO PRN (19:01)
[2022-05-26] MEDS ORDERED: PROMETHAZINE HCL 6.25 MG in SODIUM CHLORIDE 0.9% 50 ML IV PRN (19:01)
--- NOTE | 2022-05-26 19:06 | Ultrasound Report ---
BILATERAL LOWER EXTREMITY VENOUS DOPPLER HISTORY: Acute pain and swelling of the lower legs edema COMPARISON STUDY: 10/09/2011 FINDINGS: There is normal compressibility, flow, and augmentation within the bilateral lower extremit y deep venous systems. IMPRESSION: No DVT within the right or left lower extremity. ACT 112: Negative or not required by law. Electronically signed by: Vern Wolfe M.D. 05/26/2022 7:05 PM
[2022-05-26] MEDS ORDERED: PNEUMOCOCCAL POLYSACCHARIDES 25 MCG/0.5 ML VIAL/SYR IM ONE (19:17)
[2022-05-26] MEDS: POLYETHYLENE (MIRALAX) 17 GM PACK PO SCH (20:12)
[2022-05-26] MEDS: ACETAMINOPHEN 325 MG TAB PO PRN (20:57)
[2022-05-26] MEDS ORDERED: traZODone HCL 100 MG TAB PO SCH (21:00)
[2022-05-26] MEDS ORDERED: METOPROLOL TARTRATE 1 MG/ML VIAL IV STA (23:44)
[2022-05-26] MEDS ORDERED: ALBUMIN 25% 100 mL 25 GM/100 ML VIAL IV ONE (23:44)
[2022-05-27] MEDS ORDERED: DIGOXIN 250 MCG in SYRINGE 9 ML IV STA ×2 (00:14→02:08)
[2022-05-27] MEDS: MAGNESIUM SULFATE / D5W 1 GM/100 ML BAG IV SCH ×2 (00:50→02:24)
[2022-05-27] MEDS ORDERED: AMIODARONE IV BOLUS & DRIP IV STA (04:41)
[2022-05-27] MEDS ORDERED: 0.2 MICRON FILTER SET 1 EACH IV STA (04:41)
[2022-05-27] MEDS ORDERED: STAT IV Infusion **Titration per Protocol STA (04:41)
[2022-05-27] MEDS ORDERED: AMIODARONE / D5W 150 MG/100 ML BAG IV STA (04:41)
[2022-05-27] MEDS ORDERED: AMIODARONE / D5W 360 MG/200 ML BAG IV ONE (04:51)
--- NOTE | 2022-05-27 06:16 | Electrocardiogram Report ---
Test Reason : Blood Pressure : / mmHG Vent. Rate : 068 BPM Atrial Rate : 068 BPM P-R Int : 142 ms QRS Dur : 090 ms QT Int : 544 ms P-R-T Axes : 081 094 081 degrees QTc Int : 578 ms Normal sinus rhythm Rightward axis Nonspecific T wave abnormality Abnormal ECG When compared with ECG of 12-MAY-2022 13:39, Sinus rhythm has replaced Electronic atrial pacemaker Right bundle branch block is no longer Present Confirmed by Joel Garcia ([id number]) on 05/27/2022 6:16:02 AM Referred By: Confirmed By:Joel Garcia
[2022-05-27 06:22] LABS: Albumin Globulin Ratio 1.4 (0.9-2); Albumin Level 3.3 gm/dl (3.4-5.0); BUN Creatinine Ratio 25.6 (10-20); Basophils # (auto) 0.06 K/uL (0-0.2); Basophils % (auto) 0.8 %; Calcium 8.4 mg/dl (8.5-10.1); Creatinine Clr Calc Pharmacy 130.5 ml/min; Eosinophils # (auto) 0.19 K/uL (0-0.50); Eosinophils % (auto) 2.6 %; Est GFR (Non-African American) 105.2 ml/min; Globulin 2.4 gm/dl (2.5-4.0); Hematocrit (blood only) 36.8 % (34.1-44.9); Hemoglobin 12.5 g/dl (12.0-16.0); Immature Granulocytes # (auto) 0.02 K/uL (0.00-0.02); Immature Granulocytes % (auto) 0.3 %; Lymphocytes # (auto) 1.13 K/uL (1.2-3.4); Lymphocytes % (auto) 15.8 %; Magnesium 2.1 mg/dl (1.7-2.4); Mean Corpuscular Hemoglobin 31.5 pg (25.0-34.0); Mean Corpuscular Volume 92.7 fL (80.0-100.0); Mean Platelet Volume 8.7 fL (9.4-12.3); Monocytes # (auto) 0.81 K/uL (0.24-0.82); Monocytes % (auto) 11.3 %; Neutrophils # (auto) 4.96 K/uL (1.4-6.5); Neutrophils % (auto) 69.2 %; Platelet Count 295 K/uL (130-400); Potassium 3.5 mmol/L (3.5-5.1); RDW Coefficient of Variation 14.3 % (11.5-14.5); RDW Standard Deviation 48.5 fL (36.4-46.3); Red Blood Count 3.97 M/uL (3.93-5.22); Total Protein 5.7 gm/dl (6.0-8.3); White Blood Count 7.17 K/ul (4.8-10.8)
[2022-05-27] MEDS ORDERED: POTASSIUM CHLORIDE CRTAB 20 MEQ TABCR PO STA (07:06)
--- NOTE | 2022-05-27 07:06 | Communication Note ---
Date of Service: May 27, 2022 Patient consistently in rapid A. fib overnight. SBP 90s to 100s. Patient without chest pain or shortness of breath. No response to 2 doses of digoxin. AP Recurrent A. fib Rate uncontrolled IV amiodarone given borderline BP Hold Trazodone while on Amiodarone as per pharmacy recommendations given QTC prolongation on admission EKG.
[2022-05-27] MEDS: FUROSEMIDE 20 MG TAB PO SCH ×2 (08:16→08:20)
[2022-05-27] MEDS: SPIRONOLACTONE 12.5 MG TAB PO SCH ×2 (08:17→08:20)
[2022-05-27] MEDS: FLUoxetine HCL 20 MG CAP PO SCH (08:17)
[2022-05-27] MEDS: POLYETHYLENE (MIRALAX) 17 GM PACK PO SCH (08:17)
[2022-05-27] MEDS ORDERED: POTASSIUM CHLORIDE CRTAB 20 MEQ TABCR PO ONE (09:30)
[2022-05-27] MEDS ORDERED: AMIODARONE / D5W 360 MG/200 ML BAG IV SCH (10:45)
--- NOTE | 2022-05-27 11:32 | Cardiology Progress Note ---
Date of Service May 27, 2022 Assessment & Plan (1) Hypoxia: (2) Chest pain, pleuritic: (3) Atrial pacemaker lead displacement: Plan Patient is a 67-year-old female presents in anticipation of atrial lead pacemaker revision but complaining of symptoms of shortness of breath and pleuritic discomfort. No overt heart failure on exam with chest x-ray demonstrating atelectatic changes right greater than left bases. Pacemaker interrogation reveals atrial lead not functioning at high output setting Recommendations: Pacemaker reprogrammed to VVI at 40 bpm backup pacing. Atrial lead pacing discontinued Discussed with hospitalist will likely need CTA of chest given pleuritic pain and atelectasis right base, transient hypoxia Anticipate atrial lead revision tomorrow afternoon, n.p.o. after midnight Continue current dosing furosemide 05/27/2022: Evaluation performed last evening without evidence of thromboemboli/PE. No pericardial effusion. Patient did lapse into atrial tachycardia than atrial fibrillation requiring antiarrhythmic therapy to control. Currently hemodynamically stable question atrial lead contributing to recurrence of atrial arrhythmias. Plan: Continue IV amiodarone likely change to oral Pacemaker lead revision later today Will need at least transient anticoagulation post procedure Admission and Anticipated Discharge Date Admission Date: May 26, 2022 Subjective Patient seen and examined, chart, medications, telemetry reviewed. Evening and past nights events noted with patient collapsing transiently and atrial tachycardia than atrial fibrillation later in the evening treated with eventually amiodarone IV infusion with conversion to sinus rhythm. Currently no dizziness or lightheadedness. Pleuritic discomfort present on initial admission improved. Still occasional abdominal pressure. No fevers or chills. No neurologic complaints. No evidence of pulmonary embolus on CTA last evening. Current good oxygenation on room air Review of Systems Review of Systems: All systems reviewed & are unremarkable except as noted in Subjective Physical Exam Constitutional: well developed Eyes: PERRL, conjunctivae normal, anicteric sclerae ENMT: external ear and nose normal, oropharynx normal Neck: trachea midline, no thyromegaly Respiratory: Auscultation: + diminished lung sounds; no rales and no wheezes Cardiovascular: Rate/Rhythm: regular rate and regular rhythm Heart Sounds: no murmur and no cardiac rub Vessels: no JVD Extremities: + edema (1+) Gastrointestinal (Abdomen): Percussion/Palpation: + abdomen tender and abdomen soft Musculoskeletal: no cyanosis or clubbing, extremities motor strength 5/5 Results & Data ([facility]) Vital Signs (Past 12 Hours) Vital Signs Temp Pulse Pulse Resp BP Pulse Ox O2 Del Method 05/27/22 11:24 37.0 C 84 18 115/75 97 Room Air 05/27/22 07:43 36.9 C 81 18 105/69 93 Room Air 05/27/22 05:00 146 H 109/74 05/27/22 03:20 36.7 C 122 H 18 104/70 91 Room Air 05/27/22 02:22 143 H 05/27/22 01:51 Room Air 05/27/22 00:44 175 H 05/26/22 23:40 36.6 C 145 H 20 110/74 90 Room Air Laboratory Results Laboratory Results - last 24 hr 05/26/22 05/26/22 05/26/22 14:23 14:23 14:23 WBC 7.55 RBC 4.44 Hgb 14.1 Hct 41.8 MCV 94.1 MCH 31.8 MCHC 33.7 RDW Std Deviation 50.5 H RDW Coeff of Forrest 14.6 H Plt Count 318 MPV 8.6 L Immature Gran % (Auto) 0.3 Neut % (Auto) 78.0 Lymph % (Auto) 12.2 [place] % (Auto) 7.8 Eos % (Auto) 0.8 Baso % (Auto) 0.9 Neut # (Auto) 5.89 Lymph # (Auto) 0.[address] [place] # (Auto) 0.59 Eos # (Auto) 0.06 Baso # (Auto) 0.07 Immature Gran # (Auto) 0.02 PT 11.1 INR 1.0 APTT 24.5 PTT Ratio 0.9 Sodium 139 Potassium 4.4 Chloride 101 Carbon Dioxide 31 Anion Gap 7 BUN 12 Creatinine 0.62 Est Cr Clr Drug Dosing 91.5 Est GFR ( Amer) 108.1 Est GFR (Non-Af Amer) 93.3 BUN/Creatinine Ratio 19.4 Glucose 84 Calcium 9.2 Magnesium Total Bilirubin 0.8 AST 11 L ALT 9 Alkaline Phosphatase 105 H Troponin I High Sens 5.1 B-Natriuretic Peptide Total Protein 6.9 Albumin 3.5 Globulin 3.4 Albumin/Globulin Ratio 1.0 Lipase 18 Procalcitonin Urine Color Urine Appearance Urine pH Ur Specific [place] Urine Protein Urine Glucose (UA) Urine Ketones Urine Blood Urine Nitrite Urine Bilirubin Urine Urobilinogen Ur Leukocyte Esterase Urine WBC (Auto) Urine RBC (Auto) U Hyaline Cast (Auto) U Epithel Cells (Auto) Urine Bacteria (Auto) SARS-CoV-2, RNA, NAAT 05/26/22 05/26/22 05/26/22 14:23 15:29 16:32 WBC RBC Hgb Hct MCV MCH MCHC RDW Std Deviation RDW Coeff of [place] Plt Count MPV Immature Gran % (Auto) Neut % (Auto) Lymph % (Auto) [place] % (Auto) Eos % (Auto) Baso % (Auto) Neut # (Auto) Lymph # (Auto) [place] # (Auto) Eos # (Auto) Baso # (Auto) Immature Gran # (Auto) PT INR APTT PTT Ratio Sodium Potassium Chloride Carbon Dioxide Anion Gap BUN Creatinine Est Cr Clr Drug Dosing Est GFR ( Amer) Est GFR (Non-Af Amer) BUN/Creatinine Ratio Glucose Calcium Magnesium 1.8 Total Bilirubin AST ALT Alkaline Phosphatase Troponin I High Sens B-Natriuretic Peptide Total Protein Albumin Globulin Albumin/Globulin Ratio Lipase Procalcitonin Urine Color Yellow Urine Appearance Clear Urine pH 5.0 Ur Specific [place] 1.007 Urine Protein Negative Urine Glucose (UA) Negative Urine Ketones 1+ H Urine Blood 1+ H Urine Nitrite Negative Urine Bilirubin Negative Urine Urobilinogen Negative Ur Leukocyte Esterase Negative Urine WBC (Auto) 1-5 Urine RBC (Auto) 0-4 U Hyaline Cast (Auto) 0 U Epithel Cells (Auto) 5-10 H Urine Bacteria (Auto) Negative SARS-CoV-2, RNA, NAAT NEGATIVE 05/26/22 05/26/22 05/27/22 17:30 21:09 05:25 WBC 7.17 RBC 3.97 Hgb 12.5 Hct 36.8 MCV 92.7 MCH 31.5 MCHC 34.0 RDW Std Deviation 48.5 H RDW Coeff of Forrest 14.3 Plt Count 295 MPV 8.7 L Immature Gran % (Auto) 0.3 Neut % (Auto) 69.2 Lymph % (Auto) 15.8 [place] % (Auto) 11.3 Eos % (Auto) 2.6 Baso % (Auto) 0.8 Neut # (Auto) 4.96 Lymph # (Auto) 1.[address] # (Auto) 0.81 Eos # (Auto) 0.19 Baso # (Auto) 0.06 Immature Gran # (Auto) 0.02 PT INR APTT PTT Ratio Sodium Potassium Chloride Carbon Dioxide Anion Gap BUN Creatinine Est Cr Clr Drug Dosing Est GFR ( Amer) Est GFR (Non-Af Amer) BUN/Creatinine Ratio Glucose Calcium Magnesium Total Bilirubin AST ALT Alkaline Phosphatase Troponin I High Sens B-Natriuretic Peptide 280 H Total Protein Albumin Globulin Albumin/Globulin Ratio Lipase Procalcitonin < 0.05 Urine Color Urine Appearance Urine pH Ur Specific [place] Urine Protein Urine Glucose (UA) Urine Ketones Urine Blood Urine Nitrite Urine Bilirubin Urine Urobilinogen Ur Leukocyte Esterase Urine WBC (Auto) Urine RBC (Auto) U Hyaline Cast (Auto) U Epithel Cells (Auto) Urine Bacteria (Auto) SARS-CoV-2, RNA, NAAT 05/27/22 05:25 WBC RBC Hgb Hct MCV MCH MCHC RDW Std Deviation RDW Coeff of [place] Plt Count MPV Immature Gran % (Auto) Neut % (Auto) Lymph % (Auto) [place] % (Auto) Eos % (Auto) Baso % (Auto) Neut # (Auto) Lymph # (Auto) [place] # (Auto) Eos # (Auto) Baso # (Auto) Immature Gran # (Auto) PT INR APTT PTT Ratio Sodium 136 Potassium 3.5 D Chloride 101 Carbon Dioxide 27 Anion Gap 8 BUN 11 Creatinine 0.43 L Est Cr Clr Drug Dosing 130.5 Est GFR ( Amer) 122.0 Est GFR (Non-Af Amer) 105.2 BUN/Creatinine Ratio 25.6 H Glucose 95 Calcium 8.4 L Magnesium 2.1 Total Bilirubin 1.0 AST 8 L ALT 6 L Alkaline Phosphatase 92 Troponin I High Sens B-Natriuretic Peptide Total Protein 5.7 L Albumin 3.3 L Globulin 2.4 L Albumin/Globulin Ratio 1.4 Lipase Procalcitonin Urine Color Urine Appearance Urine pH Ur Specific [place] Urine Protein Urine Glucose (UA) Urine Ketones Urine Blood Urine Nitrite Urine Bilirubin Urine Urobilinogen Ur Leukocyte Esterase Urine WBC (Auto) Urine RBC (Auto) U Hyaline Cast (Auto) U Epithel Cells (Auto) Urine Bacteria (Auto) SARS-CoV-2, RNA, NAAT
--- NOTE | 2022-05-27 14:26 | Hospitalist Progress Note ---
Date of Service May 27, 2022 Assessment & Plan (1) Atrial pacemaker lead displacement: (2) Chest pain, pleuritic: (3) Hypoxia: Plan This is a 67-year-old female who has a significant past medical history of PAF, PSVT, HTN, HLD, GERD, Chronic tobacco use, hx of PE, depression with anxiety, history of rectosigmoid resection secondary to diverticulitis who presents to ED referral of cardiology for pacemaker lead revision as well as right-sided chest pain for approximately 10 days. Patient underwent pacemaker placement secondary to sick sinus syndrome on 05/12/2022. She underwent echocardiogram as outpatient by cardiology who noted that her atrial lead was displaced. Patient was admitted to the PCU for revision of lead placement. On the night of 05/26, patient had A. fib with RVR; was started on amiodarone drip. Patient converted to sinus rhythm at 7:30 AM in the morning. Patient is plan to undergo pacemaker lead revision on 05/27. Atrial pacemaker lead displacement Hx of SSS s/p PPM on 05/12/[address] Sherwood Atrial fibrillation on amiodarone On admission, patient underwent CT angio chest which did not show any PE. She was found to have some bilateral pleural effusion and right basilar opacity. Pacemaker interrogation reveals atrial lead not functioning. Pacemaker reprogrammed to VVI at 40 bpm backup pacing. Currently on IV amiodarone for maintenance of sinus rhythm. Plan; Pacemaker lead revision today. Continue on IV amiodarone and changed to oral amiodarone for maintenance of sinus rhythm Long-term anticoagulation to be decided Chronic abdominal ventral wound hx of hernia repair 4 years ago, wound has been present since then increased drainage from site, no surrounding erythema will hold on antibiotics for now given no erythema, leukocytosis or fever Wound culture pending CT abdomen and pelvis unremarkable. Depression w/ anxiety continue prozac and trazodone mood stable Chronic tobacco abuse encourage cessation declines nicotine patch at time Chronic L shoulder pain 2/2 fall in January 2022 baseline DVT ppx: Anticoagulation after procedure. FULL CODE PCP: Kristine Hayden Dispo: PCU, NPO for now. Resume diet after procedure. Admission and Anticipated Discharge Date Admission Date: May 26, 2022 Subjective Patient seen and examined at bedside. She is lying on the bed; not in any dist ress. She says she is tired and complains of chest pressure. She denies palpitation or chest pain. She denies any shortness of breath as well. Patient had atrial fibrillation with RVR starting 11:30 PM; started on amiodarone drip. She converted to sinus rhythm at 7:30 AM today. Review of Systems Review of Systems: All systems reviewed & are unremarkable except as noted in Subjective Physical Exam Physical Exam: Constitutional: Alert, oriented x3. Lethargic. Head: Normocephalic, Atraumatic Eyes: PERRL, conjunctivae normal, anicteric sclerae ENMT: external ear and nose normal, oropharynx normal Neck: trachea midline, no thyromegaly normal visual inspection Respiratory: normal respiratory effort, lungs clear to auscultation, no wheeze, rales, rhonchi. Normal insp/exp effort, no accessory muscle use Cardiovascular: RRR, no murmur, no edema Vessels: no JVD or carotid bruit Chest: normal inspection of chest Abdomen: Midline incision with brown discharge. Bowel sound present Musculoskeletal: no cyanosis or clubbing, extremities motor strength 5/5 Skin: no rashes, warm and dry normal turgor Neurologic: PERRL, EOMI, accommodation nl, no face palsy, no dysarthria CN's II- XI intact bilaterally and moves all extremities Psychiatric: A+Ox3, euthymic affect Lymphatic: no cervical or axillary lymphadenopathy : deferred Results & Data Results & Data ([facility]) Vital Signs (Past 12 Hours) Vital Signs Temp Pulse Resp BP Pulse Ox O2 Del Method 05/27/22 11:24 37.0 C 84 18 115/75 97 Room Air 05/27/22 07:43 36.9 C 81 18 105/69 93 Room Air 05/27/22 05:00 146 H 109/74 05/27/22 03:20 36.7 C 122 H 18 104/70 91 Room Air Laboratory Results Laboratory Results WBC 7.17 K/ul (4.8-10.8) 05/27/22 05:25 RBC 3.97 M/uL (3.93-5.22) 05/27/22 05:25 Hgb 12.5 g/dl (12.0-16.0) 05/27/22 05:25 Hct 36.8 % (34.1-44.9) 05/27/22 05:25 MCV 92.7 fL (80.0-100.0) 05/27/22 05:25 MCH 31.5 pg (25.0-34.0) 05/27/22 05:25 MCHC 34.0 g/dL (32.0-36.0) 05/27/22 05:25 RDW Std Deviation 48.5 fL (36.4-46.3) H 05/27/22 05:25 RDW Coeff of Forrest 14.3 % (11.5-14.5) 05/27/22 05:25 Plt Count 295 K/uL (130-400) 05/27/22 05:25 MPV 8.7 fL (9.4-12.3) L 05/27/22 05:25 Immature Gran % (Auto) 0.3 % 05/27/22 05:25 Neut % (Auto) 69.2 % 05/27/22 05:25 Lymph % (Auto) 15.8 % 05/27/22 05:25 [place] % (Auto) 11.3 % 05/27/22 05:25 Eos % (Auto) 2.6 % 05/27/22 05:25 Baso % (Auto) 0.8 % 05/27/22 05:25 Neut # (Auto) 4.96 K/uL (1.4-6.5) 05/27/22 05:25 Lymph # (Auto) 1.13 K/uL (1.2-3.4) L 05/27/22 05:25 Charlotte # (Auto) 0.81 K/uL (0.24-0.82) 05/27/22 05:25 Eos # (Auto) 0.19 K/uL (0-0.50) 05/27/22 05:25 Baso # (Auto) 0.06 K/uL (0-0.2) 05/27/22 05:25 Immature Gran # (Auto) 0.02 K/uL (0.00-0.02) 05/27/22 05:25 PT 11.1 Seconds (9.0-12.0) 05/26/22 14:23 INR 1.0 (0.9-1.1) 05/26/22 14:23 APTT 24.5 Seconds (21.0-31.0) 05/26/22 14:23 PTT Ratio 0.9 05/26/22 14:23 Sodium 136 mmol/L (136-145) 05/27/22 05:25 Potassium 3.5 mmol/L (3.5-5.1) D 05/27/22 05:25 Chloride 101 mmol/L (98-107) 05/27/22 05:25 Carbon Dioxide 27 mmol/L (21-32) 05/27/22 05:25 Anion Gap 8 (3-11) 05/27/22 05:25 BUN 11 mg/dl (6-23) 05/27/22 05:25 Creatinine 0.43 mg/dl (0.6-1.2) L 05/27/22 05:25 Est Cr Clr Drug Dosing 130.5 ml/min 05/27/22 05:25 Est GFR ( Amer) 122.0 ml/min 05/27/22 05:25 Est GFR (Non-Af Amer) 105.2 ml/min 05/27/22 05:25 BUN/Creatinine Ratio 25.6 (10-20) H 05/27/22 05:25 Glucose 95 mg/dl (70-99(Fasting)) 05/27/22 05:25 Calcium 8.4 mg/dl (8.5-10.1) L 05/27/22 05:25 Magnesium 2.1 mg/dl (1.7-2.4) 05/27/22 05:25 Total Bilirubin 1.0 mg/dl (0.2-1.0) 05/27/22 05:25 AST 8 U/L (13-39) L 05/27/22 05:25 ALT 6 U/L (7-52) L 05/27/22 05:25 Alkaline Phosphatase 92 U/L (34-104) 05/27/22 05:25 Troponin I High Sens 5.1 pg/ml (0-14) 05/26/22 14:23 B-Natriuretic Peptide 280 pg/ml (0-100) H 05/26/22 21:09 Total Protein 5.7 gm/dl (6.0-8.3) L 05/27/22 05:25 Albumin 3.3 gm/dl (3.4-5.0) L 05/27/22 05:25 Globulin 2.4 gm/dl (2.5-4.0) L 05/27/22 05:25 Albumin/Globulin Ratio 1.4 (0.9-2) 05/27/22 05:25 Lipase 18 U/L (11-82) 05/26/22 14:23 Procalcitonin < 0.05 ng/ml (0-0.5) 05/26/22 17:30 Urine Color Yellow 05/26/22 16:32 Urine Appearance Clear (Clear) 05/26/22 16:32 Urine pH 5.0 (4.5-7.5) 05/26/22 16:32 Ur Specific Tram 1.007 (1.000-1.030) 05/26/22 16:32 Urine Protein Negative (Negative) 05/26/22 16:32 Urine Glucose (UA) Negative (Negative) 05/26/22 16:32 Urine Ketones 1+ (Negative) H 05/26/22 16:32 Urine Blood 1+ (Negative) H 05/26/22 16:32 Urine Nitrite Negative (Negative) 05/26/22 16:32 Urine Bilirubin Negative (Negative) 05/26/22 16:32 Urine Urobilinogen Negative (Negative) 05/26/22 16:32 Ur Leukocyte Esterase Negative (Negative) 05/26/22 16:32 Urine WBC (Auto) 1-5 /hpf (0-5) 05/26/22 16:32 Urine RBC (Auto) 0-4 /hpf (0-4) 05/26/22 16:32 U Hyaline Cast (Auto) 0 /lpf (0-5) 05/26/22 16:32 U Epithel Cells (Auto) 5-10 /lpf (0-5) H 05/26/22 16:32 Urine Bacteria (Auto) Negative (Negative) 05/26/22 16:32 SARS-CoV-2, RNA, NAAT NEGATIVE (NEGATIVE) 05/26/22 15:29 Impressions Chest X-Ray 05/26/22 14:05 XR chest 1V portable CLINICAL HISTORY: Chest Pain TECHNIQUE: Single frontal radiograph of the chest was obtained. Comparison: Comparison is made to chest radiograph 05/12/2022 FINDINGS: Dual lead pacemaker is seen. The cardiomediastinal silhouette is normal. Bilateral lower lung predominant airspace opacities are seen. Right pleural effusion and likely left pleural effusion. IMPRESSION: 1. Bilateral lower lung predominant airspace opacities which may represent atelectasis, pneumonia, and/or aspiration. 2. Right pleural effusion and likely left pleural effusion. No evidence of pneumothorax. ACT 112: Negative or not required by law. Electronically signed by: Myles Gunter M.D. 05/26/2022 3:32 PM Chest CTA 05/26/22 16:32 CT angio chest PE protocol, CT abd pelvis IV con only CT DOSE: 926.93 mGy.cm HISTORY: 67 years-old Female with PE. Acute shortness of breath with chest and abdominal pain. Reported wound of the abdomen TECHNIQUE: Multiple CTA images of the chest were obtained after the intravenous administration of 98 ml Optiray. Coronal and sagittal MIPS were obtained from the axial data set and were submitted for review. All measurements were obtained according to NASCET criteria. CT abdomen and pelvis with IV contrast only was also obtained. A dose lowering technique was utilized adhering to the principles of ALARA. COMPARISON: CT abdomen and pelvis 09/29/2019 FINDINGS: CTA: The heart is upper limits of normal in size. Small pericardial effusion. Left subclavian pacer. Mild coronary artery calcifications. Atherosclerosis of the thoracic aorta with patency of the imaged great vessels. Unremarkable pulmonary artery. No pulmonary emboli identified. CT CHEST: Subcentimeter hypodense nodule of the posterior right thyroid. Coarse left thyroid lobe calcification. No pathologically enlarged lymph nodes. Small left and moderate right pleural effusions. Right greater than left dependent bibasilar consolidation. No pneumothorax. There is mild pulmonary emphysema. Bronchial wall thickening with mild right basilar mucous plugging. Subcentimeter calcified granuloma of the left lower lobe. Mild intralobular septal thickening. Mild generalized body wall edema. Multilevel degenerative changes of the spine. No destructive lytic or blastic osseous lesions identified. CT ABDOMEN AND PELVIS: No pneumatosis or pneumoperitoneum. Unremarkable spleen, moderately atrophic pancreas and adrenal glands. Cholecystectomy with likely postsurgical int rahepatic and extrahepatic biliary ductal dilation, similar to prior. Numerous hepatic cysts are redemonstrated measuring up to 4 cm. Mild hepatomegaly. Patent portal vein. 4 mm nonobstructing calculus of the superior pole right kidney. 7 mm nonobstructing calculus of the inferior pole left kidney. There are a few cysts of the bilateral kidneys measuring up to 1.7 cm. No ureteral calculi or hydr onephrosis identified. Urinary bladder wall thickening with partial distention. The pelvic structures are suboptimally visualized secondary to streak artifact from left hip arthroplasty. Pelvic basin phleboliths. Atherosclerosis of the abdominal aorta without aneurysm. No lymphadenopathy identified retroaortic left renal vein. Mild nonspecific distal esophageal wall thickening. No bowel obstruction or bowel wall thickening. Colonic diverticulosis. Moderate colonic fecal retention. The appendix is not visualized. Mild diastases recti with scarring of the lower anterior abdominal/pelvic wall. Degenerative changes of the spine and right hip. Left hip total joint arthroplasty. IMPRESSION: 1. No pulmonary emboli identified. 2. Small left and moderate right pleural effusions. Right basilar airspace opacities may represent atelectasis versus pneumonia. 3. Mild intralobular septal thickening may represent a component of pulmonary edema. 4. No bowel obstruction or bowel wall thickening. 5. Nonobstructing bilateral nephrolithiasis. 6. Additional findings as above. ACT 112: Negative or not required by law. The above report was generated using voice recognition software. It may contain grammatical, syntax or spelling errors. Electronically signed by: Vern Wolfe M.D. 05/26/2022 5:44 PM Abdomen/Pelvis CT 05/26/22 16:34 CT angio chest PE protocol, CT abd pelvis IV con only CT DOSE: 926.93 mGy.cm HISTORY: 67 years-old Female with PE. Acute shortness of breath with chest and abdominal pain. Reported wound of the abdomen TECHNIQUE: Multiple CTA images of the chest were obtained after the intravenous administration of 98 ml Optiray. Coronal and sagittal MIPS were obtained from the axial data set and were submitted for review. All measurements were obtained according to NASCET criteria. CT abdomen and pelvis with IV contrast only was also obtained. A dose lowering technique was utilized adhering to the principles of ALARA. COMPARISON: CT abdomen and pelvis 09/29/2019 FINDINGS: CTA: The heart is upper limits of normal in size. Small pericardial effusion. Left subclavian pacer. Mild coronary artery calcifications. Atherosclerosis of the thoracic aorta with patency of the imaged great vessels. Unremarkable pulmonary artery. No pulmonary emboli identified. CT CHEST: Subcentimeter hypodense nodule of the posterior right thyroid. Coarse left thyroid lobe calcification. No pathologically enlarged lymph nodes. Small left and moderate right pleural effusions. Right greater than left dependent bibasila r consolidation. No pneumothorax. There is mild pulmonary emphysema. Bronchial wall thickening with mild right basilar mucous plugging. Subcentimeter calcified granuloma of the left lower lobe. Mild intralobular septal thickening. Mild generalized body wall edema. Multilevel degenerative changes of the spine. No destructive lytic or blastic osseous lesions identified. CT ABDOMEN AND PELVIS: No pneumatosis or pneumoperitoneum. Unremarkable spleen, moderately atrophic pancreas and adrenal glands. Cholecystectomy with likely postsurgical intrahepatic and extrahepatic biliary ductal dilation, similar to prior. Numerous hepatic cysts are redemonstrated measuring up to 4 cm. Mild hepatomegaly. Patent portal vein. 4 mm nonobstructing calculus of the superior pole right kidney. 7 mm nonobstruc ting calculus of the inferior pole left kidney. There are a few cysts of the bilateral kidneys measuring up to 1.7 cm. No ureteral calculi or hydronephrosis identified. Urinary bladder wall thickening with partial distention. The pelvic structures are suboptimally visualized secondary to streak artifact from left hip arthroplasty. Pelvic basin phleboliths. Atherosclerosis of the abdominal aorta without aneurysm. No lymphadenopathy identified retroaortic left renal vein. Mild nonspecific distal esophageal wall thickening. No bowel obstruction or bowel wall thickening. Colonic diverticulosis. Moderate colonic fecal retention. The appendix is not visualized. Mild diastases recti with scarring of the lower anterior abdominal/pelvic wall. Degenerative changes of the spine and right hip. Left hip total joint arthroplasty. IMPRESSION: 1. No pulmonary emboli identified. 2. Small left and moderate right pleural effusions. Right basilar airspace opacities may represent atelectasis versus pneumonia. 3. Mild intralobular septal thickening may represent a component of pulmonary edema. 4. No bowel obstruction or bowel wall thickening. 5. Nonobstructing bilateral nephrolithiasis. 6. Additional findings as above. ACT 112: Negative or not required by law. The above report was generated using voice recognition software. It may contain grammatical, syntax or spelling errors. Electronically signed by: Vern Wolfe M.D. 05/26/2022 5:44 PM Venous Doppler Study 05/26/22 16:46 BILATERAL LOWER EXTREMITY VENOUS DOPPLER HISTORY: Acute pain and swelling of the lower legs edema COMPARISON STUDY: 10/09/2011 FINDINGS: There is normal compressibility, flow, and augmentation within the bilateral lower extremity deep venous systems. IMPRESSION: No DVT within the right or left lower extremity. ACT 112: Negative or not required by law. Electronically signed by: Vern Wolfe M.D. 05/26/2022 7:05 PM
--- NOTE | 2022-05-27 15:33 | History & Physical Bridge Note ---
Date of Service May 27, 2022 History & Physical Bridge Note I have examined the patient, reviewed the History & Physical and in the interval since the performance of the History & Physical I have noted the following changes of clinical significance: pt with right atrial pacing lead dislodgement; for a lead revision; discussed the potential risks and benefits; consents signed
--- NOTE | 2022-05-27 15:34 | Pre Anesthesia Assessment ---
Date of Service May 27, 2022 Pre Sedation Assessment Vital Signs Temp Pulse Pulse Resp BP BP Pulse Ox 05/27/22 15:15 73 20 140/84 91 05/27/22 11:24 37.0 C 84 18 115/75 97 05/27/22 07:43 36.9 C 81 18 105/69 93 05/27/22 05:00 146 H 109/74 05/27/22 03:20 36.7 C 122 H 18 104/70 91 05/27/22 02:22 143 H 05/27/22 01:51 05/26/22 22:15 67 05/27/22 00:44 175 H 05/26/22 23:40 36.6 C 145 H 20 110/74 90 05/26/22 20:23 57 L 20 127/73 93 05/26/22 19:01 05/26/22 19:02 36.8 C 63 20 123/72 93 05/26/22 18:00 62 15 05/26/22 18:00 122/63 05/26/22 17:46 107/63 05/26/22 17:46 62 17 05/26/22 17:00 68 18 05/26/22 17:00 103/74 05/26/22 16:30 64 18 05/26/22 16:30 115/73 05/26/22 16:03 121/71 05/26/22 16:03 69 17 91 05/26/22 16:00 70 19 89 L O2 Del Method 05/27/22 15:15 Room Air 05/27/22 11:24 Room Air 05/27/22 07:43 Room Air 05/27/22 05:00 05/27/22 03:20 Room Air 05/27/22 02:22 05/27/22 01:51 Room Air 05/26/22 22:15 05/27/22 00:44 05/26/22 23:40 Room Air 05/26/22 20:23 Room Air 05/26/22 19:01 Room Air 05/26/22 19:02 Room Air 05/26/22 18:00 05/26/22 18:00 05/26/22 17:46 05/26/22 17:46 05/26/22 17:00 05/26/22 17:00 05/26/22 16:30 05/26/22 16:30 05/26/22 16:03 05/26/22 16:03 05/26/22 16:00 Cardiovascular + regular rate Respiratory normal respiratory effort, lungs clear to auscultation Pre-Sedation Airway Assessment Smoking Status: Current every day smoker Hx Sleep Apnea: No Short, Thick Neck: No Thyromental Distance: > or= 3.5 Finger Breadths Oral Cavity: + Dentures Mallampati Class: I ASA: ASA3 NPO Status Date of Last Intake of Fluids: 05/27/22 Time of Last Intake of Fluids: 07:00 Date of Last Intake of Solid Food: 05/26/22 Time of Last Intake of Solid Foods: 18:00 Procedure Planning Contraindications for Sedation: none Current Medications Reviewed: Yes Notes The planned sedation has been discussed with the patient. Informed Consent was obtained. I have identified the patient, determined the appropriateness of sedation and have assessed the patient immediately prior to the procedure. All medicine(s) and interventions are by my order.
[2022-05-27] MEDS ORDERED: LIDOCAINE 1% LOCAL 20 ML VIAL ONE ×2 (15:35→16:06)
[2022-05-27] MEDS ORDERED: BUPIVACAINE 0.5 % 5 MG/1 ML PF 10ML VIAL ONE ×2 (15:36→16:06)
[2022-05-27] MEDS ORDERED: VANCOMYCIN HCL 1000MG/20ML VIAL ONE (15:36)
[2022-05-27] MEDS ORDERED: ceFAZolin 330 MG/ML 1 GM VIAL ONE (15:36)
[2022-05-27] MEDS ORDERED: MIDAZOLAM HCL 5 MG/ML 1 ML VIAL ONE (15:36)
[2022-05-27] MEDS ORDERED: WATER, STERILE FOR INJ 10 ML VIAL ONE (15:36)
[2022-05-27] MEDS ORDERED: fentaNYL citrate 100 MCG/2 ML VIAL ONE (15:36)
[2022-05-27] MEDS ORDERED: CLINDAMYCIN PHOS 18 MG/1 ML IV ONE (15:52)
[2022-05-27] MEDS ORDERED: CLINDAMYCIN/D5W 600 MG/50 ML BAG **Premixed Bag IV SCH (16:00)
--- NOTE | 2022-05-27 16:40 | Post Anesthesia Assessment ---
Date of Service May 27, 2022 Post Sedation Assessment Vital Signs Temp Pulse Pulse Resp BP BP Pulse Ox 05/27/22 15:15 73 20 140/84 91 05/27/22 11:24 37.0 C 84 18 115/75 97 05/27/22 07:43 36.9 C 81 18 105/69 93 05/27/22 05:00 146 H 109/74 05/27/22 03:20 36.7 C 122 H 18 104/70 91 05/27/22 02:22 143 H 05/27/22 01:51 05/26/22 22:15 67 05/27/22 00:44 175 H 05/26/22 23:40 36.6 C 145 H 20 110/74 90 05/26/22 20:23 57 L 20 127/73 93 05/26/22 19:01 05/26/22 19:02 36.8 C 63 20 123/72 93 05/26/22 18:00 62 15 05/26/22 18:00 122/63 05/26/22 17:46 107/63 05/26/22 17:46 62 17 05/26/22 17:00 68 18 05/26/22 17:00 103/74 O2 Del Method 05/27/22 15:15 Room Air 05/27/22 11:24 Room Air 05/27/22 07:43 Room Air 05/27/22 05:00 05/27/22 03:20 Room Air 05/27/22 02:22 05/27/22 01:51 Room Air 05/26/22 22:15 05/27/22 00:44 05/26/22 23:40 Room Air 05/26/22 20:23 Room Air 05/26/22 19:01 Room Air 05/26/22 19:02 Room Air 05/26/22 18:00 05/26/22 18:00 05/26/22 17:46 05/26/22 17:46 05/26/22 17:00 05/26/22 17:00 Recovery Score Activity: Moves 4 extremities Respiration: Deep Breath/Cough Circulation: +/-20% PreAnes Value Consciousness: Fully Awake Oxygen Saturation: > 92% On Room Air Discharge Sedation Level of Care: Fast Track Phase II Post Sedation Plan On clinical assessment, the patient appears to have tolerated the sedation without complications. Patient is recovering as anticipated. Patient will continue to be monitored by nursing and may be discharged when sedation discharge criteria are met per below protocol. Upon Completions of procedure up to 15 minutes continue every 5 minute vital signs and the P.A.R. score; then discharge to a Phase I or Fast Track to Phase II per the following guidelines: * Discharge Patient to appropriate Phase II area if PAR is 8 or greater or return to pre- procedure baseline. The post - procedure orders will be as directed. * If PAR score is less than 8 or not return to pre-procedure baseline then patient will follow Phase I monitoring till PAR is reached for Phase II. The Phase I may be done in procedure room or may call to secure a Phase I area. * If naloxone or flumazenil are used for reversal, hold in Phase I for continued monitoring from when last reversal dose was given for a minimum of 60 minutes or longer pending the nurse and/or physician discretion of patient condition before discharge to Phase II. Please call the Sedation Physician to re-evaluate and complete post-note for discharge to Phase II area. Do NOT discharge from procedure sedation or Phase 1 until post- sedation evalu ation note is complete by procedure /sedation MD Sedation Discharge Instructions to be given to the patient at discharge to home.
--- NOTE | 2022-05-27 16:41 | Operative Report ---
Post Operative Report Pre & Post Diagnosis pacemaker lead dislodgement Operation Date: 05/27/22 14:30 <No data on this case meets the specified criteria> I identified the patient and participated in the time-out.: Yes Procedure Operation Date: 05/27/22 14:30 Actual Procedures p Lead Reposition RA/RV - Polina Sherwood DO Surgeon Polina Sherwood, DO Instructional Aide none Estimated Blood Loss 10 Findings Consistent with Post-Op Diagnosis Specimens none Description of Procedure see official report I attest to the content of the Intraoperative Record and any orders documented therein. Any exceptions are noted below.
[2022-05-27] MEDS: ACETAMINOPHEN 325 MG TAB PO PRN ×2 (18:19→22:11)
[2022-05-28 07:24] LABS: Basophils # (auto) 0.05 K/uL (0-0.2); Basophils % (auto) 0.8 %; Eosinophils # (auto) 0.11 K/uL (0-0.50); Eosinophils % (auto) 1.8 %; Hematocrit (blood only) 38.7 % (34.1-44.9); Hemoglobin 12.9 g/dl (12.0-16.0); Immature Granulocytes # (auto) 0.02 K/uL (0.00-0.02); Immature Granulocytes % (auto) 0.3 %; Lymphocytes # (auto) 1.19 K/uL (1.2-3.4); Lymphocytes % (auto) 19.4 %; Mean Corpuscular Hemoglobin 31.6 pg (25.0-34.0); Mean Corpuscular Hgb Conc 33.3 g/dL (32.0-36.0); Mean Corpuscular Volume 94.9 fL (80.0-100.0); Mean Platelet Volume 8.4 fL (9.4-12.3); Monocytes # (auto) 0.71 K/uL (0.24-0.82); Monocytes % (auto) 11.6 %; Neutrophils # (auto) 4.06 K/uL (1.4-6.5); Neutrophils % (auto) 66.1 %; Platelet Count 278 K/uL (130-400); RDW Coefficient of Variation 14.5 % (11.5-14.5); RDW Standard Deviation 50.6 fL (36.4-46.3); Red Blood Count 4.08 M/uL (3.93-5.22); White Blood Count 6.14 K/ul (4.8-10.8)
[2022-05-28 07:52] LABS: BUN Creatinine Ratio 21.1 (10-20); Calcium 8.7 mg/dl (8.5-10.1); Creatinine Clr Calc Pharmacy 99.2 ml/min; Est GFR (African American) 111.2 ml/min; Est GFR (Non-African American) 95.9 ml/min; Potassium 4.1 mmol/L (3.5-5.1)
[2022-05-28] MEDS: POLYETHYLENE (MIRALAX) 17 GM PACK PO SCH (08:11)
[2022-05-28] MEDS: ACETAMINOPHEN 325 MG TAB PO PRN (08:11)
[2022-05-28] MEDS: SPIRONOLACTONE 12.5 MG TAB PO SCH (08:11)
[2022-05-28] MEDS: FUROSEMIDE 20 MG TAB PO SCH (08:11)
[2022-05-28] MEDS: FLUoxetine HCL 20 MG CAP PO SCH (08:11)
--- NOTE | 2022-05-28 11:42 | Cardiology Progress Note ---
Date of Service May 28, 2022 Assessment & Plan (1) Hypoxia: (2) Chest pain, pleuritic: (3) Atrial pacemaker lead displacement: Plan Patient is a 67-year-old female presents in anticipation of atrial lead pacemaker revision but complaining of symptoms of shortness of breath and pleuritic discomfort. No overt heart failure on exam with chest x-ray demonstrating atelectatic changes right greater than left bases. Pacemaker interrogation reveals atrial lead not functioning at high output setting Recommendations: Pacemaker reprogrammed to VVI at 40 bpm backup pacing. Atrial lead pacing discontinued Discussed with hospitalist will likely need CTA of chest given pleuritic pain and atelectasis right base, transient hypoxia Anticipate atrial lead revision tomorrow afternoon, n.p.o. after midnight Continue current dosing furosemide 05/27/2022: Evaluation performed last evening without evidence of thromboemboli/PE. No pericardial effusion. Patient did lapse into atrial tachycardia than atrial fibrillation requiring antiarrhythmic therapy to control. Currently hemodynamically stable question atrial lead contributing to recurrence of atrial arrhythmias. Plan: Pacemaker lead revision later today 05/28/2022: Patient underwent successful lead revision. Atrial arrhythmias were likely induced by highly mobile right atrial lead with cardiac irritation. No further arrhythmias since lead replaced. No indications for further antiarrhythmic therapies at this time. We will follow rhythms via pacer interrogations Will not formally anticoagulate Patient with follow-up with wound check and pacer clinic on 06/01/2022 Patient may be discharged after ambulate Admission and Anticipated Discharge Date Admission Date: May 26, 2022 Subjective Patient seen and examined, chart, medications, telemetry reviewed. Patient feels improved today back to baseline. No further chest pain or sharp discomfort no further arrhythmias no worsening cough with mild wheeze on deep inspiration. Surgical incision healing well with mild tenderness Review of Systems Review of Systems: All systems reviewed & are unremarkable except as noted in Subjective Physical Exam Constitutional: well developed Eyes: PERRL, conjunctivae normal, anicteric sclerae ENMT: external ear and nose normal, oropharynx normal Neck: trachea midline, no thyromegaly Respiratory: Auscultation: + diminished lung sounds; no rales and no wheezes Cardiovascular: Rate/Rhythm: regular rate and regular rhythm Heart Sounds: no murmur and no cardiac rub Vessels: no JVD Extremities: + edema (1+) Gastrointestinal (Abdomen): Percussion/Palpation: + abdomen tender and abdomen soft Musculoskeletal: no cyanosis or clubbing, extremities motor strength 5/5 Results & Data ([facility]) Vital Signs (Past 12 Hours) Vital Signs Temp Pulse Pulse Resp BP Pulse Ox O2 Del Method 05/28/22 08:47 Nasal Cannula 05/28/22 07:45 36.5 C 59 L 16 123/79 97 05/28/22 07:11 60 05/28/22 04:07 36.4 C L 61 18 112/73 95 Nasal Cannula O2 Flow Rate 05/28/22 08:47 2 05/28/22 07:45 05/28/22 07:11 05/28/22 04:07 2 Laboratory Results Laboratory Results - last 24 hr 05/28/22 05/28/22 07:03 07:03 WBC 6.14 RBC 4.08 Hgb 12.9 Hct 38.7 MCV 94.9 MCH 31.6 MCHC 33.3 RDW Std Deviation 50.6 H RDW Coeff of Forrest 14.5 Plt Count 278 MPV 8.4 L Immature Gran % (Auto) 0.3 Neut % (Auto) 66.1 Lymph % (Auto) 19.4 [place] % (Auto) 11.6 Eos % (Auto) 1.8 Baso % (Auto) 0.8 Neut # (Auto) 4.06 Lymph # (Auto) 1.19 L [place] # (Auto) 0.71 Eos # (Auto) 0.11 Baso # (Auto) 0.05 Immature Gran # (Auto) 0.02 Sodium 136 Potassium 4.1 Chloride 100 Carbon Dioxide 31 Anion Gap 5 BUN 12 Creatinine 0.57 L Est Cr Clr Drug Dosing 99.2 Est GFR ( Amer) 111.2 Est GFR (Non-Af Amer) 95.9 BUN/Creatinine Ratio 21.1 H Glucose 88 Calcium 8.7
--- NOTE | 2022-05-28 13:46 | Discharge Summary ---
Date of Service May 28, 2022 Admission HPI Per Admitting Provider This is a 67-year-old female who has a significant past medical history of PAF, PSVT, HTN, HLD, GERD, Chronic tobacco use, hx of PE, depression with anxiety, history of rectosigmoid resection secondary to diverticulitis who presents to ED referral of cardiology for pacemaker lead revision as well as right-sided chest pain for approximately 10 days. Of significance patient underwent pacemaker placement secondary to sick sinus syndrome on 05/12/2022. She underwent echocardiogram as outpatient by cardiology who noted that her atrial lead is malfunctioning. Ever since returning home from pacemaker procedure she has not been doing well. 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 He does have a caregiver that comes 8 hours a day. Her daughter is at bedside. She admits to days after procedure developing right-sided chest pain. Pain radiates to her back, is worse with inspiration and exertion, improved with rest, has never experienced before, rated a 8 out of 10 at its worst, currently 3 out of 10 and has not tried anything to improve pain. She also admits to having a dizziness and a sensation of feeling like she is going to pass out as well as shortness of breath prior to pacemaker placement. This has not improved. She admits shortness of breath has gotten worse with exertion. She does have a chronic cough secondary to smoking and feels this is unchanged. She denies any significant hemoptysis or sputum production. She also denies any fever, chills, sweats, syncope, nausea, vomiting, diarrhea, increased urgency with urination or hematuria. She does admit to being constipated and having very small bowel movements. She also admits to having dysuria and increased urinary frequency secondary to Lasix. She feels that she has gained weight approximately 20 pounds since having her pacemaker placed; however after reviewing weights in chart it appears she has gained approximately 2 kg. She also admits to chronic abdominal pain ever since having hernia repair approximately 4 years ago. She has had an open wound since then is admitting to increased drainage to the site. In ED patient made hemodynamically stable and was not requiring any oxygen supplementation; however, according to nurse at bedside when patient ambulated to bathroom she became very short of breath and did desaturate to 88%. She did improve to 93 to 95% on room air with deep inhalation. Chest x-ray revealed bilateral lower lung airspace opacity which may represent atelectasis, pneumonia or aspiration. Right pleural effusion and likely left pleural effusion no evidence of pneumothorax. Her CBC and CMP was relatively unremarkable. Troponin WNL. EKG revealed 68 bpm normal sinus rhythm without ST or T wave change. Admission Exam Per Admitting Provider Constitutional: WD/WN, F, appears acutely ill, vitals as above, NAD, sitting up in bed, pleasant, conversing easily Head: Normocephalic, Atraumatic Eyes: PERRL, conjunctivae normal, anicteric sclerae ENMT: external ear and nose normal, oropharynx normal Neck: trachea midline, no thyromegaly normal visual inspection Respiratory: normal respiratory effort, lungs clear to auscultation with diminished breath sounds at RLB, no wheeze, rales, rhonchi. Normal insp/exp effort, no accessory muscle use Cardiovascular: RRR, no murmur, b/lnonpitting edema Vessels: no JVD or carotid bruit Chest: normal inspection of chest, + pacer insertion LACW, steris in place, incision w/o erythema or pain, no pain to palp chest wall Abdomen: normal bowel sounds, soft, +tender to palp, + midline incision with brown drainage, no hepatosplenomegaly, no rebound, guarding/rigidity Musculoskeletal: no cyanosis or clubbing, extremities motor strength 5/5 Skin: no rashes, warm and dry normal turgor Neurologic: PERRL, EOMI, accommodation nl, no face palsy, no dysarthria CN's II-XI intact bilaterally and moves all extremities Psychiatric: A+Ox3, euthymic affect Lymphatic: no cervical or axillary lymphadenopathy : deferred Principal Diagnosis Atrial pacemaker lead displacement s/p lead revision on 05/27 Discharge Exam Constitutional: Alert, oriented x3. Lethargic. Head: Normocephalic, Atraumatic Eyes: PERRL, conjunctivae normal, anicteric sclerae ENMT: external ear and nose normal, oropharynx normal Neck: trachea midline, no thyromegaly normal visual inspection Respiratory: normal respiratory effort, lungs clear to auscultation, no wheeze, rales, rhonchi. Normal insp/exp effort, no accessory muscle use Cardiovascular: RRR, no murmur, no edema Vessels: no JVD or carotid bruit Chest: normal inspection of chest. Dressing in place in right upper chest; no soakage Abdomen: Midline incision with brown discharge. Bowel sound present Musculoskeletal: no cyanosis or clubbing, extremities motor strength 5/5 Skin: no rashes, warm and dry normal turgor Neurologic: PERRL, EOMI, accommodation nl, no face palsy, no dysarthria CN's II- XI intact bilaterally and moves all extremities Psychiatric: A+Ox3, euthymic affect Lymphatic: no cervical or axillary lymphadenopathy : deferred Discharge Data Allergies Allergy/AdvReac Type Severity Reaction Status Date / Time domiphen Allergy Severe tongue Verified 05/26/22 16:34 swelling cephalexin Allergy Intermediate RASH Verified 05/26/22 16:34 Cephalosporins Allergy Intermediate hives, Verified 05/26/22 16:34 itching Ceepryn Chloride Allergy Severe tongue Uncoded 05/26/22 16:34 swelling Consultations 05/26/22 15:38 ED Decision to Admit Stat 05/26/22 15:53 Consult Cardiology Routine Procedures Performed Operation Date: 05/27/22 14:30 Actual Procedures p Lead Reposition RA/RV - Polina Sherwood DO Ordered Studies 05/26/22 16:32 CT angio chest PE protocol Stat 05/26/22 16:34 CT abd pelvis IV con only Stat 05/26/22 16:46 US venous doppler LE BI Stat 05/27/22 15:45 EP Lab Images for PACS ONCE Hospital Course (1) Atrial pacemaker lead displacement: (2) Chest pain, pleuritic: (3) Hypoxia: Plan This is a 67-year-old female who has a significant past medical history of PAF, PSVT, HTN, HLD, GERD, Chronic tobacco use, hx of PE, depression with anxiety, history of rectosigmoid resection secondary to diverticulitis who presents to ED referral of cardiology for pacemaker lead revision as well as right-sided chest pain for approximately 10 days. Patient underwent pacemaker placement secondary to sick sinus syndrome on 05/12/2022. She underwent echocardiogram as outpatient by cardiology who noted that her atrial lead was displaced. Patient was admitted to the PCU for revision of lead placement. On the night of 05/26, patient had A. fib with RVR; was started on amiodarone drip. Patient converted to sinus rhythm at 7:30 AM in the morning. Patient underwent successful lead revision on 05/27. Pacemaker interrogation was done which showed successful lead revision. Telemetry showed paced rhythm; no recurrence of atrial fibrillation. The episode of atrial fibrillation was likely induced by mobile right atrial lead with cardiac irritation. No antiarrhythmic or anticoagulation were prescribed on discharge. Patient was instructed to follow-up with cardiology at [facility] on 06/01/2022. No medication changes were made at discharge. Wound culture from abdomen did not grow any pathological organism. Patient was discharged home with Tylenol for pain control. She was instructed to follow-up with PCP and cardiology Total Time Total Time Spent Total Time Spent (In Minutes): 35 Total Time Includes: Examination of the Patient, Discharge Planning, Medication Reconciliation, Communication With Other Providers and Other Discharge Plan Discharge Items Patient Disposition: Home - Self-Care Reason For Visit: PACEMAKER MALFUNCTION Discharge Diagnosis: Atrial pacemaker lead displacement status post lead revision Activity: As commented below Activity Comment: do not raise the left elbow over the left shoulder for 1 month Lifting: No more than 10 pounds Lifting Comment: do not lift more than 10 pounds w/ left arm for 2 weeks Bathing: Keep incision dry Bathing Comment: keep dressing on & dry until wound check next week Sexual Activity: After two weeks Driving/Machine Use: Resume 1 day after discharge Non-emergency contact: Veterinary Receptionist Call non-emergency contact if: you have any medication questions Follow-up/Referrals: Cardiology [Other] (Date & Time 06/01/2022 2:00 PM Provider Pacer Clinic [facility] Department Cardiology, [facility] ) Pedro Hayden DO [Primary Care Provider] - (Date & Time 06/02/2022 11:00 AM Provider Pedro Hayden DO Department [facility] ) Diet: Regular Addtl Attending Provider Instructions: You were admitted to the hospital due to atrial pacemaker lead displacement. You underwent successful lead revision on 05/27. There will be no medication changes. Do not raise the left elbow over the left shoulder for 1 month Do not lift more than 10 pounds w/ left arm for 2 weeks Keep dressing on & dry until wound check next week Device and wound check next week at [facility] Cardiology Pending Studies at Discharge: No Stand-Alone Forms: [employer], Smoking Cessation Medications and DC Order Prescriptions: New acetaminophen 325 mg Tablet 650 mg PO Q4H PRN (Reason: pain) Qty: 30 0RF Continued fluoxetine [Prozac] 40 mg Capsule 40 mg PO QAM polyethylene glycol 3350 [Miralax] 17 gram Powder In Packet 17 g PO DAILY PRN (Reason: Constipation) trazodone 100 mg Tablet 100 mg PO HS vitamin K2 40 mcg Tablet 40 mcg PO QAM furosemide 20 mg Tablet 20 mg PO DAILY echinacea 125 mg Capsule 125 mg PO DAILY spironolactone [Aldactone] 25 mg Tablet 12.5 mg PO DAILY Discharge Orders: Discharge Order (Routine); Ordered 05/28/22 Ordered By: Jenaro Kemp/Other Patient Handouts: Pacemaker Implant Dc Admission Data Admit Date/Time: 05/26/22 15:53 Attending Provider: Jenaro Lam Admit Provider: Dana Spangler Primary Care Provider: Pedro Hayden Other Providers: Kiran Rhoades ; Dana Spangler Other Interventions: Discharge Summary Assessment (RN) Last Done: 05/28/22 13:55
--- NOTE | 2022-05-28 21:25 | Electrocardiogram Report ---
Test Reason : Blood Pressure : / mmHG Vent. Rate : 060 BPM Atrial Rate : 060 BPM P-R Int : 186 ms QRS Dur : 096 ms QT Int : 446 ms P-R-T Axes : 038 -15 -50 degrees QTc Int : 446 ms Atrial-paced rhythm T wave abnormality, consider anterior ischemia Abnormal ECG When compared with ECG of 26-MAY-2022 14:09, Electronic atrial pacemaker has replaced Sinus rhythm Questionable change in QRS axis Inverted T waves have replaced nonspecific T wave abnormality in Anterior leads Confirmed by Joel Garcia ([id number]) on 05/28/2022 9:25:35 PM Referred By: REFERRED SELF Confirmed By:Joel Garcia
--- NOTE | 2022-06-02 13:59 | Operative Report (OR) ---
DATE OF PROCEDURE: 05/27/2022. PREOPERATIVE DIAGNOSIS: Right atrial pacing lead dislodgement. POSTOPERATIVE DIAGNOSIS: Right atrial pacing lead dislodgement. PROCEDURE: Right atrial pacing lead revision. SURGEON: Polina Sherwood DO. FARM OPERATIONS TECHNICAL DIRECTOR: None. ANESTHESIA: Monitored conscious sedation administered under my supervision by Tory Winn. Start tuan e 1556, end time 1641. A total of 3 mg of Versed and 75 mcg of fentanyl. INTRAVENOUS FLUIDS: 90 mL. ANTIBIOTICS: 600 mg of clindamycin. BLOOD LOSS: 20 mL. URINE OUTPUT: Not applicable. SPECIMENS: None. FINDINGS: See below. DRAINS: None. INDICATIONS: This 67-year-old female with history of sick sinus syndrome where she underwent a perma nent pacemaker a few weeks ago on 05/12/2022, also has a history of possible paroxysmal atrial fibril lation, not on AV zora blockers or anticoagulation; CHADS2-VASc score of 3, hypertension, hyperlipid emia. Cardiac catheterization in 2010 that showed no obstructive disease, chronic tobacco use, histo ry of a PE, gastroesophageal reflux disease and fibromyalgia. At her post-wound pacemaker check in o ur device clinic, her right atrial thresholds were abnormal and on chest x-ray we found that her lead had dislodged, so she presents for lead revision. CONSENT: Consent was obtained prior to the patient going into electrophysiology lab. The patient wa s informed of the risks, benefits, and alternatives to the procedure. Risks include, but not limited to, sudden cardiac , cardiac arrhythmia, cerebrovascular accident, myocardial infarction, injur y to blood vessels, chamber of the heart and lung, bleeding and infection. The patient understood th gayle risks and agreed to the procedure as planned. Informed consent was obtained. DESCRIPTION OF PROCEDURE: The patient was brought into electrophysiology lab in a fasting state. e was connected to continuous cardiac monitoring. A time-out was performed to ensure patient identit y and procedure correctly. She was prepped and draped in the left infraclavicular space in normal sanchez rgical standard fashion. Monitored conscious sedation was given throughout the procedure for patient 's comfort level. [place] precautions were maintained throughout the procedure. She received prop hylactic antibiotics prior to incision. The incision was opened back up using Jorje and then blunt dissection was performed down to the pulse generator. Pulse generator was removed from the pocket. The antibiotic pouch was pretty much almost all dissolved. I did blunt dissection down to the suture sleeves, I then disconnected the right atr ial lead from the pacemaker generator and then removed the 0 silk suture that was securing the lead d own to the pectoralis muscle. I placed a stylet down into the pacemaker lead and then retracted the screw back, then I put in a blue stylet and reposition the lead into the right atrial appendage under fluoroscopic guidance. I had it in a different place than previously. There was better sensing and adequate thresholds. I then screwed the lead out and the sensing and thresholds remained good and t here was no diaphragmatic stimulation with high output pacing. I then fixated the lead to the pector hong muscle using 0 silk suture. Then, I washed the pocket out with copious amounts of vancomycin an d saline wash and connected to the right atrial lead back to the device, making sure the pins were in appropriate position, passed set screws, and set screws tightened. I then placed the device in the antibiotic pouch followed then by being placed in the pocket, making sure the leads were lying flat b eneath the device. The incision was closed in a 3-layer fashion with 2-0 Vicryl interrupted suture, followed by 3-0 Vicryl interrupted suture, followed by 4-0 Monocryl running stitch and then Steri-Str ips were applied followed by Telfa and Tegaderm dressing. EQUIPMENT: 1. The pulse generator is a [employer] model W1DR01, serial number [id number], implanted 05/12/2022. 2. TYRX pouch, reference [id number], lot number [id number]. 3. Right atrial lead, 5076-52 cm, serial number [id number], implanted 05/12/2022 with lead revision today. 4. Left bundle lead 3830-69 cm, serial number [id number], implanted 05/12/2022. INTRAOPERATIVE TESTING: Right atrial lead, P waves 4.5 millivolts, impedance 488 ohms, threshold 0.7 volts at 0.4 milliseconds. FINAL MEASUREMENTS THROUGH THE DEVICE. 1. Right atrial lead, P waves 2.1 millivolts and impedance 399 ohms, threshold 1 volt at 0.4 millise conds. 2. The left bundle lead, R waves 16.1 millivolts, impedance 589 ohms, threshold 0.5 volts at 0.4 mil liseconds. FINAL PARAMETERS: MVP-R 60/130, right atrial amplitude 3.5 volts, pulse width 0.4 milliseconds, sens itivity 0.3 millivolts. Left bundle lead amplitude 3.5 volts, pulse width 0.4 milliseconds, sensitiv ity 0.9 millivolts. IMPRESSION: Successful right atrial pacing lead revision secondary to it being dislodged. PLAN: Transfer back to inpatient telemetry. Monitor overnight. She is to keep the dressing on and dry until her wound check next week. No lifting the left elbow or left shoulder for 1 month. No hea vy lifting with the left arm for 2 weeks and wound check next week. Job ID: [id number]
== END 2022-05-28 14:40 | disposition home or self-care (01) | DRG 261 ==
LOC: ED 13:26 → EDINP 15:53 → SUATTDRO 15:53 → 2S 16:50

== ENCOUNTER 2022-06-06 12:47 | Inpatient (IN) ==
[2022-06-06 15:28] LABS: Basophils # (auto) 0.07 K/uL (0-0.2); Basophils % (auto) 0.6 %; Eosinophils # (auto) 0.04 K/uL (0-0.50); Eosinophils % (auto) 0.4 %; Hematocrit (blood only) 39.3 % (34.1-44.9); Hemoglobin 13.8 g/dl (12.0-16.0); Immature Granulocytes # (auto) 0.05 K/uL (0.00-0.02); Immature Granulocytes % (auto) 0.4 %; Lymphocytes # (auto) 1.14 K/uL (1.2-3.4); Lymphocytes % (auto) 10.2 %; Mean Corpuscular Hemoglobin 32.7 pg (25.0-34.0); Mean Corpuscular Hgb Conc 35.1 g/dL (32.0-36.0); Mean Corpuscular Volume 93.1 fL (80.0-100.0); Mean Platelet Volume 8.7 fL (9.4-12.3); Monocytes # (auto) 1.07 K/uL (0.24-0.82); Monocytes % (auto) 9.6 %; Neutrophils # (auto) 8.81 K/uL (1.4-6.5); Neutrophils % (auto) 78.8 %; Platelet Count 430 K/uL (130-400); RDW Coefficient of Variation 13.9 % (11.5-14.5); RDW Standard Deviation 47.5 fL (36.4-46.3); Red Blood Count 4.22 M/uL (3.93-5.22); White Blood Count 11.18 K/ul (4.8-10.8)
--- NOTE | 2022-06-06 15:37 | Emergency Department Note ---
History of Present Illness General Chief complaint: Illness Stated complaint: BREATHING TROUBLE, CHEST PAIN, FATIGUE Time Seen by Provider: 06/06/22 15:29 History of Present Illness Maximum Pain Intensity: 4 This 67 year old female presents to the emergency department for evaluation of right sided pain and SOB. She states that she is having right sided chest pains, SOB, right sided abdominal pain, and trouble sleeping. She thinks it is from the fluid that was found in her lungs the last time that has just gotten worse. Feels like she is wheezing now too. Pain is mostly on the right side of the chest and radiates to her back and RUQ. She rates the pain as stabbing and 6/10 at rest and 8/10 with movement or breathing. Her PCP prescribed her a "pain pill" that helped improve her symptoms, but is almost out of them. Temp has been around 99 per patient and sometimes has chills. She was also started on Cordarone last week and she was reading that it can cause SOB, chest pain, and wheezing and wonders if this is contributing to her symptoms. She is on Eliquis for the recent pacemaker as well as history of Afib and PE. No change in her symptoms, just feels like it's getting worse. Having trouble getting out of bed or laying flat. Gets SOB very easily with any exertion. She is on lasix 20 mg QD and aldactone 12.5 mg QD. Sometimes feels like she gets fluid in her legs overnight, but then it improves throughout the day. She was seen in the emergency department on 05/26/2022 for increased shortness of breath and not feeling well after she had her pacemaker placed on 05/12/[address] Sherwood. She had an echo that showed the atrial lead was not in place and functioning. Work-up in the emergency department showed negative COVID testing, normal troponin, and unremarkable blood work and urinalysis. Chest x-ray showed pleural effusion. She was then admitted for further evaluation. During admission she had a CTA of the chest to rule out PE that showed no evidence of PE, but did show small left and moderate right pleural effusions as well as right basilar airspace opacities which may represent atelectasis versus pneumonia. She also had mild intralobular septal thickening which may represent a component of pulmonary edema. Venous Dopplers of the bilateral lower extremity showed no evidence for DVT. CT of the abdomen pelvis showed cholecystectomy with likely postsurgical intrahepatic and extrahepatic biliary ductal dilation as well as numerous hepatic cysts and mild hepatomegaly, but no acute findings or cause of her symptoms. 05/27/2022 the patient did labs into atrial tachycardia than atrial fibrillation requiring antiarrhythmic therapy. On 05/28/2022 she underwent successful lead revision. Cardiology felt that the atrial arrhythmias were likely induced by highly mobile right atrial lead with cardiac irritation. There were no further arrhythmias since the lead was replaced per cardiology note. However, the patient states that she has been noticing palpitations and irregular heart rate multiple times since being discharged. States that she tends to get symptoms at least once a day. Home Medications Medication Instructions Recorded Confirmed Type fluoxetine 40 mg capsule (Prozac) 40 mg PO QAM 09/29/19 06/06/22 History polyethylene glycol 3350 17 gram 17 g PO DAILY PRN Constipation 09/29/19 06/06/22 History oral powder packet (Miralax) trazodone 100 mg tablet 100 mg PO HS 09/29/19 06/06/22 History vitamin K2 40 mcg tablet 40 mcg PO QAM 09/29/19 06/06/22 History furosemide 20 mg tablet 20 mg PO DAILY 05/12/22 06/06/22 History spironolactone 25 mg tablet 12.5 mg PO DAILY 05/26/22 06/06/22 History (Aldactone) acetaminophen 325 mg tablet 650 mg PO Q4H PRN pain #30 tabs 05/28/22 06/06/22 Rx amiodarone 200 mg tablet 200 mg PO BID 06/06/22 06/06/22 History apixaban 5 mg tablet (Eliquis) 5 mg PO BID 06/06/22 06/06/22 History echinacea purpurea extract 125 mg 125 mg PO DAILY 06/06/22 06/06/22 History tablet (echinacea) oxycodone-acetaminophen 5 mg-325 1 tab PO DIRECTED PRN Pain 06/06/22 06/06/22 History mg tablet Allergies Allergy/AdvReac Type Severity Reaction Status Date / Time domiphen Allergy Severe tongue Verified 06/06/22 16:17 swelling cephalexin Allergy Intermediate RASH Verified 06/06/22 16:17 Cephalosporins Allergy Intermediate hives, Verified 06/06/22 16:17 itching Ceepryn Chloride Allergy Severe tongue Uncoded 06/06/22 16:17 swelling Past Med/Surg History Medical History A-fib Acute diverticulitis Anxiety Depression Dyslipidemia GERD (gastroesophageal reflux disease) Pulmonary emboli Surgical History H/O section History of appendectomy History of bowel resection History of colostomy reversal History of hernia repair History of total hip arthroplasty History of total knee arthroplasty Hx of cholecystectomy Family History Mother , 76 Myocardial infarction Father , 76 Stroke Social History Smoking Status: Current every day smoker Tobacco Type: Cigarettes packs per day: 1; Years Smoked: 40; Cigarettes Per Day: 2-3; Hx Alcohol Use: Yes Alcohol type: wine Hx Substance Use: No Preferred Language: [place] 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 and A total of 10 systems reviewed and were otherwise negative Physical Exam Vital Signs Vital Signs - 24 hr 06/06/22 13:10 06/06/22 13:21 06/06/22 15:28 Temperature 36.8 C Temperature Source Temporal Artery Scan Pulse Rate 74 Pulse Rate [Left Apical] 72 Pulse Rate from SpO2 Sensor Pulse Rhythm Regular Pulse Rhythm [Left Apical] Regular Pulse Strength Normal Pulse Strength [Left Apical] Normal Respiratory Rate 22 24 Respiratory Rate [Exercises] Respiratory Effort / Characteristics Non-Labored Spontaneous Spontaneous Short of Breath Respiratory Depth Normal Normal Respiratory Pattern Regular Regular Blood Pressure 109/68 Blood Pressure [Left Arm] 139/82 Blood Pressure Mean 81 Blood Pressure Mean [Left Arm] 101 Blood Pressure Position Sitting Blood Pressure Position [Left Arm] Lying Pulse Oximetry 90 90 94 Pulse Oximetry [Exercises] Oxygen Delivery Method Room Air Nasal Cannula Nasal Cannula Oxygen Flow Rate 2 2 Sepsis Recent Fever Within 48 Hours No Sepsis New/Unexplained Change in Mental Status No Sepsis Action Taken by Nursing No Action Required 06/06/22 15:28 06/06/22 16:00 06/06/22 16:49 Temperature Temperature Source Pulse Rate Pulse Rate [Left Apical] 68 73 Pulse Rate from SpO2 Sensor Pulse Rhythm Pulse Rhythm [Left Apical] Regular Regular Pulse Strength Pulse Strength [Left Apical] Normal Normal Respiratory Rate 20 20 Respiratory Rate [Exercises] Respiratory Effort / Characteristics Short of Breath Non-Labored Spontaneous Non-Labored Spontaneous Respiratory Depth Shallow Normal Normal Respiratory Pattern Tachypnea Blood Pressure Blood Pressure [Left Arm] 130/77 130/77 Blood Pressure Mean Blood Pressure Mean [Left Arm] 94 94 Blood Pressure Position Blood Pressure Position [Left Arm] Pulse Oximetry 98 96 Pulse Oximetry [Exercises] Oxygen Delivery Method Nebulizer Room Air Oxygen Flow Rate 8 Sepsis Recent Fever Within 48 Hours Sepsis New/Unexplained Change in Mental Status Sepsis Action Taken by Nursing 06/06/22 18:00 06/06/22 18:59 06/06/22 15:54 Temperature Temperature Source Pulse Rate 72 Pulse Rate [Left Apical] 68 Pulse Rate from SpO2 Sensor 72 Pulse Rhythm Pulse Rhythm [Left Apical] Regular Pulse Strength Pulse Strength [Left Apical] Normal Respiratory Rate 20 21 Respiratory Rate [Exercises] 22 Respiratory Effort / Characteristics Non-Labored Spontaneous Respiratory Depth Normal Respiratory Pattern Blood Pressure Blood Pressure [Left Arm] Blood Pressure Mean Blood Pressure Mean [Left Arm] Blood Pressure Position Blood Pressure Position [Left Arm] Pulse Oximetry 95 95 Pulse Oximetry [Exercises] 86 L Oxygen Delivery Method Room Air Room Air Oxygen Flow Rate Sepsis Recent Fever Within 48 Hours Sepsis New/Unexplained Change in Mental Status Sepsis Action Taken by Nursing 06/06/22 16:00 06/06/22 16:00 06/06/22 16:10 Temperature Temperature Source Pulse Rate 70 72 Pulse Rate [Left Apical] Pulse Rate from SpO2 Sensor 69 73 Pulse Rhythm Pulse Rhythm [Left Apical] Pulse Strength Pulse Strength [Left Apical] Respiratory Rate 20 14 Respiratory Rate [Exercises] Respiratory Effort / Characteristics Respiratory Depth Respiratory Pattern Blood Pressure 130/77 Blood Pressure [Left Arm] Blood Pressure Mean 94 Blood Pressure Mean [Left Arm] Blood Pressure Position Blood Pressure Position [Left Arm] Pulse Oximetry 98 90 Pulse Oximetry [Exercises] Oxygen Delivery Method Oxygen Flow Rate Sepsis Recent Fever Within 48 Hours Sepsis New/Unexplained Change in Mental Status Sepsis Action Taken by Nursing 06/06/22 16:20 06/06/22 16:30 06/06/22 16:45 Temperature Temperature Source Pulse Rate 70 69 76 Pulse Rate [Left Apical] Pulse Rate from SpO2 Sensor 71 69 78 Pulse Rhythm Pulse Rhythm [Left Apical] Pulse Strength Pulse Strength [Left Apical] Respiratory Rate 18 20 21 Respiratory Rate [Exercises] Respiratory Effort / Characteristics Respiratory Depth Respiratory Pattern Blood Pressure Blood Pressure [Left Arm] Blood Pressure Mean Blood Pressure Mean [Left Arm] Blood Pressure Position Blood Pressure Position [Left Arm] Pulse Oximetry 93 94 88 L Pulse Oximetry [Exercises] Oxygen Delivery Method Oxygen Flow Rate Sepsis Recent Fever Within 48 Hours Sepsis New/Unexplained Change in Mental Status Sepsis Action Taken by Nursing 06/06/22 16:50 06/06/22 17:00 06/06/22 17:00 Temperature Temperature Source Pulse Rate 71 69 Pulse Rate [Left Apical] Pulse Rate from SpO2 Sensor 71 69 Pulse Rhythm Pulse Rhythm [Left Apical] Pulse Strength Pulse Strength [Left Apical] Respiratory Rate 18 17 Respiratory Rate [Exercises] Respiratory Effort / Characteristics Respiratory Depth Respiratory Pattern Blood Pressure 131/90 Blood Pressure [Left Arm] Blood Pressure Mean 103 Blood Pressure Mean [Left Arm] Blood Pressure Position Blood Pressure Position [Left Arm] Pulse Oximetry 96 96 Pulse Oximetry [Exercises] Oxygen Delivery Method Oxygen Flow Rate Sepsis Recent Fever Within 48 Hours Sepsis New/Unexplained Change in Mental Status Sepsis Action Taken by Nursing 06/06/22 17:10 06/06/22 17:20 06/06/22 17:30 Temperature Temperature Source Pulse Rate 84 79 72 Pulse Rate [Left Apical] Pulse Rate from SpO2 Sensor 75 72 Pulse Rhythm Pulse Rhythm [Left Apical] Pulse Strength Pulse Strength [Left Apical] Respiratory Rate 17 18 18 Respiratory Rate [Exercises] Respiratory Effort / Characteristics Respiratory Depth Respiratory Pattern Blood Pressure Blood Pressure [Left Arm] Blood Pressure Mean Blood Pressure Mean [Left Arm] Blood Pressure Position Blood Pressure Position [Left Arm] Pulse Oximetry 96 96 Pulse Oximetry [Exercises] Oxygen Delivery Method Oxygen Flow Rate Sepsis Recent Fever Within 48 Hours Sepsis New/Unexplained Change in Mental Status Sepsis Action Taken by Nursing 06/06/22 18:13 06/06/22 18:20 06/06/22 18:30 Temperature Temperature Source Pulse Rate 73 72 73 Pulse Rate [Left Apical] Pulse Rate from SpO2 Sensor 73 69 69 Pulse Rhythm Pulse Rhythm [Left Apical] Pulse Strength Pulse Strength [Left Apical] Respiratory Rate 18 21 Respiratory Rate [Exercises] Respiratory Effort / Characteristics Respiratory Depth Respiratory Pattern Blood Pressure Blood Pressure [Left Arm] Blood Pressure Mean Blood Pressure Mean [Left Arm] Blood Pressure Position Blood Pressure Position [Left Arm] Pulse Oximetry 96 94 95 Pulse Oximetry [Exercises] Oxygen Delivery Method Oxygen Flow Rate Sepsis Recent Fever Within 48 Hours Sepsis New/Unexplained Change in Mental Status Sepsis Action Taken by Nursing 06/06/22 18:40 06/06/22 18:50 06/06/22 19:00 Temperature Temperature Source Pulse Rate 73 73 73 Pulse Rate [Left Apical] Pulse Rate from SpO2 Sensor 73 71 72 Pulse Rhythm Pulse Rhythm [Left Apical] Pulse Strength Pulse Strength [Left Apical] Respiratory Rate 18 19 20 Respiratory Rate [Exercises] Respiratory Effort / Characteristics Respiratory Depth Respiratory Pattern Blood Pressure Blood Pressure [Left Arm] Blood Pressure Mean Blood Pressure Mean [Left Arm] Blood Pressure Position Blood Pressure Position [Left Arm] Pulse Oximetry 95 94 95 Pulse Oximetry [Exercises] Oxygen Delivery Method Oxygen Flow Rate Sepsis Recent Fever Within 48 Hours Sepsis New/Unexplained Change in Mental Status Sepsis Action Taken by Nursing 06/06/22 19:10 06/06/22 19:20 06/06/22 19:30 Temperature Temperature Source Pulse Rate 77 70 135 H Pulse Rate [Left Apical] Pulse Rate from SpO2 Sensor 77 70 130 H Pulse Rhythm Pulse Rhythm [Left Apical] Pulse Strength Pulse Strength [Left Apical] Respiratory Rate 18 18 20 Respiratory Rate [Exercises] Respiratory Effort / Characteristics Respiratory Depth Respiratory Pattern Blood Pressure Blood Pressure [Left Arm] Blood Pressure Mean Blood Pressure Mean [Left Arm] Blood Pressure Position Blood Pressure Position [Left Arm] Pulse Oximetry 95 94 94 Pulse Oximetry [Exercises] Oxygen Delivery Method Oxygen Flow Rate Sepsis Recent Fever Within 48 Hours Sepsis New/Unexplained Change in Mental Status Sepsis Action Taken by Nursing 06/06/22 19:39 06/06/22 19:39 06/06/22 19:40 Temperature Temperature Source Pulse Rate 127 H 124 H Pulse Rate [Left Apical] Pulse Rate from SpO2 Sensor 121 H 142 H Pulse Rhythm Pulse Rhythm [Left Apical] Pulse Strength Pulse Strength [Left Apical] Respiratory Rate 19 20 Respiratory Rate [Exercises] Respiratory Effort / Characteristics Respiratory Depth Respiratory Pattern Blood Pressure 92/75 L Blood Pressure [Left Arm] Blood Pressure Mean 80 Blood Pressure Mean [Left Arm] Blood Pressure Position Blood Pressure Position [Left Arm] Pulse Oximetry 93 88 L Pulse Oximetry [Exercises] Oxygen Delivery Method Oxygen Flow Rate Sepsis Recent Fever Within 48 Hours Sepsis New/Unexplained Change in Mental Status Sepsis Action Taken by Nursing 06/06/22 20:20 06/06/22 20:00 06/06/22 19:45 Temperature Temperature Source Pulse Rate 141 H 144 H Pulse Rate [Left Apical] Pulse Rate from SpO2 Sensor 129 H Pulse Rhythm Pulse Rhythm [Left Apical] Pulse Strength Pulse Strength [Left Apical] Respiratory Rate 18 Respiratory Rate [Exercises] Respiratory Effort / Characteristics Respiratory Depth Respiratory Pattern Blood Pressure Blood Pressure [Left Arm] Blood Pressure Mean Blood Pressure Mean [Left Arm] Blood Pressure Position Blood Pressure Position [Left Arm] Pulse Oximetry 91 91 Pulse Oximetry [Exercises] Oxygen Delivery Method Nasal Cannula Oxygen Flow Rate 3 Sepsis Recent Fever Within 48 Hours Sepsis New/Unexplained Change in Mental Status Sepsis Action Taken by Nursing 06/06/22 19:45 06/06/22 19:50 06/06/22 20:13 Temperature Temperature Source Pulse Rate 163 H Pulse Rate [Left Apical] Pulse Rate from SpO2 Sensor 143 H 133 H Pulse Rhythm Pulse Rhythm [Left Apical] Pulse Strength Pulse Strength [Left Apical] Respiratory Rate 21 Respiratory Rate [Exercises] Respiratory Effort / Characteristics Respiratory Depth Respiratory Pattern Blood Pressure 105/79 Blood Pressure [Left Arm] Blood Pressure Mean 87 Blood Pressure Mean [Left Arm] Blood Pressure Position Blood Pressure Position [Left Arm] Pulse Oximetry 90 95 Pulse Oximetry [Exercises] Oxygen Delivery Method Oxygen Flow Rate Sepsis Recent Fever Within 48 Hours Sepsis New/Unexplained Change in Mental Status Sepsis Action Taken by Nursing 06/06/22 20:15 06/06/22 20:15 06/06/22 20:20 Temperature Temperature Source Pulse Rate 135 H 129 H Pulse Rate [Left Apical] Pulse Rate from SpO2 Sensor 107 H 132 H Pulse Rhythm Pulse Rhythm [Left Apical] Pulse Strength Pulse Strength [Left Apical] Respiratory Rate 20 23 Respiratory Rate [Exercises] Respiratory Effort / Characteristics Respiratory Depth Respiratory Pattern Blood Pressure 104/72 Blood Pressure [Left Arm] Blood Pressure Mean 82 Blood Pressure Mean [Left Arm] Blood Pressure Position Blood Pressure Position [Left Arm] Pulse Oximetry 96 94 Pulse Oximetry [Exercises] Oxygen Delivery Method Oxygen Flow Rate Sepsis Recent Fever Within 48 Hours Sepsis New/Unexplained Change in Mental Status Sepsis Action Taken by Nursing 06/06/22 20:30 06/06/22 20:30 06/06/22 20:40 Temperature Temperature Source Pulse Rate 120 H 130 H Pulse Rate [Left Apical] Pulse Rate from SpO2 Sensor 126 H 134 H Pulse Rhythm Pulse Rhythm [Left Apical] Pulse Strength Pulse Strength [Left Apical] Respiratory Rate 20 22 Respiratory Rate [Exercises] Respiratory Effort / Characteristics Respiratory Depth Respiratory Pattern Blood Pressure 96/63 L Blood Pressure [Left Arm] Blood Pressure Mean 74 Blood Pressure Mean [Left Arm] Blood Pressure Position Blood Pressure Position [Left Arm] Pulse Oximetry 94 94 Pulse Oximetry [Exercises] Oxygen Delivery Method Oxygen Flow Rate Sepsis Recent Fever Within 48 Hours Sepsis New/Unexplained Change in Mental Status Sepsis Action Taken by Nursing VITALS: Vitals are noted on the nurse's note and reviewed by myself. GENERAL: 67-year-old female, in no acute distress, non-diaphoretic. SKIN: Capillary refill <2 sec. No tenting of the skin. HEAD: Normocephalic, atraumatic. EARS: External auditory canals clear, tympanic membranes pearly eaton without erythema or effusion bilaterally. EYES: PERRLA. EOMI. Conjunctivae without injection, sclerae without icterus. NOSE: Patent without discharge. MOUTH: Mucous membranes moist. Uvula midline. Airway patent. NECK: Supple without nuchal rigidity. HEART: Regular rate and rhythm without murmurs gallops or rubs. LUNGS: Clear to auscultation bilaterally with scattered intermittent wheezes and decreased movement of air on the right side. ABDOMEN: Positive bowel sounds x 4. Normal tympanic percussion. Soft, tender to palpation in the epigastric and right upper quadrants, without masses or organomegaly. No guarding or rebound tenderness. No focal RLQ or LLQ tenderness. MUSCULOSKELETAL: No gross musculoskeletal defects. Mild bilateral lower extremity edema without pitting. NEURO: Patient was alert and oriented to person place and time. No focal neurological deficits. Course Administered Medications Apixaban (Apixaban 5 Mg Tablet) 5 mg PO BID BROOKE Stop: 07/06/22 22:38 Last Admin: 06/06/22 23:21 Dose: 5 mg Documented By: RAMONA Trazodone HCl (Trazodone Hcl 100 Mg Tab) 100 mg PO HS BROOKE Stop: 07/06/22 22:38 Last Admin: 06/06/22 23:21 Dose: 100 mg Documented By: RAMONA Discontinued Medications Albuterol (Albuterol 0.083% Nebu Soln 3 Ml Vial) 2.5 mg NEB NOW STA; Protocol Stop: 06/06/22 15:51 Last Admin: 06/06/22 15:57 Dose: 2.5 mg Documented By: VANI Amiodarone HCl (Amiodarone 200 Mg Tab) 200 mg PO NOW STA Stop: 06/06/22 20:15 Last Admin: 06/06/22 21:14 Dose: 200 mg Documented By: CHRIS Digoxin (Digoxin 500 Mcg/2 Ml Amp) 250 mcg IV ONE ONE Stop: 06/06/22 20:16 Last Admin: 06/06/22 20:20 Dose: 250 mcg Documented By: CHRIS Furosemide (Furosemide Inj 20 Mg/2 Ml Vial) 20 mg IV ONE ONE Stop: 06/06/22 20:11 Last Admin: 06/06/22 20:27 Dose: 20 mg Documented By: CHRIS Sodium Chloride (Nss 1000ml) 500 mls @ 999 mls/hr IV .Q31M ONE Stop: 06/06/22 20:14 Last Infusion: 06/06/22 22:59 Dose: 0 mls/hr Documented By: Admin: 06/06/22 19:47 Dose: 999 mls/hr Documented By: CHRIS Magnesium Sulfate/Dextrose (Magnesium Sulfate / D5w) 1 gm in 100 mls @ 50 mls/hr IV ONE ONE Stop: 06/06/22 22:14 Last Infusion: 06/06/22 22:59 Dose: 0 mls/hr Documented By: Admin: 06/06/22 20:32 Dose: 50 mls/hr Documented By: CHRIS Albumin Human (Albumin 25% 100 Ml) 25 gm in 100 mls @ 50 mls/hr IV ONE ONE Stop: 06/06/22 22:09 Last Infusion: 06/06/22 22:59 Dose: 0 mls/hr Documented By: Admin: 06/06/22 20:40 Dose: 50 mls/hr Documented By: CHRIS Ioversol (Optiray 300 500ml) 97 ml IV ONCE ONE Stop: 06/06/22 20:11 Last Admin: 06/06/22 20:11 Dose: 97 ml Documented By: KIM Morphine Sulfate (Morphine Sulfate 2 Mg/Ml Carp) 2 mg IV NOW STA Stop: 06/06/22 15:51 Last Admin: 06/06/22 15:57 Dose: 2 mg Documented By: VANI Morphine Sulfate (Morphine Sulfate 2 Mg/Ml Carp) 1 mg IV NOW STA Stop: 06/06/22 19:20 Last Admin: 06/06/22 19:29 Dose: 1 mg Documented By: CHRIS Ondansetron HCl (Ondansetron Inj 2 Mg/Ml 2 Ml Vial) 4 mg IV NOW STA Stop: 06/06/22 15:51 Last Admin: 06/06/22 15:57 Dose: 4 mg Documented By: VANI Oxycodone HCl (Oxycodone Hcl Ir 5 Mg Tab (Immediate Release)) 5 mg PO NOW STA Stop: 06/06/22 20:43 Last Admin: 06/06/22 21:14 Dose: 5 mg Documented By: CHRIS Potassium Chloride (Potassium Chloride Crtab 20 Meq Tabcr) 40 meq PO NOW STA Stop: 06/06/22 20:04 Last Admin: 06/06/22 20:29 Dose: 40 meq Documented By: CHRIS Medical Decision Making Differential Diagnosis Differential diagnosis includes pneumonia, pleural effusions, pulmonary edema, viral/bacterial etiology, NM, PE, pacemaker abnormality, acute intra-abdominal etiology, hepatitis, choledocholithiasis, pancreatitis, sepsis, COVID, or others. Laboratory Data Attestation: I reviewed the patient's lab results. Result diagrams: 06/06/22 15:14 06/06/22 15:14 Lab Results 06/06/22 06/06/22 06/06/22 Range/Units 15:14 15:14 15:14 WBC 11.18 H (4.8-10.8) K/ul RBC 4.22 (3.93-5.22) M/uL Hgb 13.8 (12.0-16.0) g/dl Hct 39.3 (34.1-44.9) % MCV 93.1 (80.0-100.0) fL MCH 32.7 (25.0-34.0) pg MCHC 35.1 (32.0-36.0) g/dL RDW Std Deviation 47.5 H (36.4-46.3) fL RDW Coeff of Forrest 13.9 (11.5-14.5) % Plt Count 430 H (130-400) K/uL MPV 8.7 L (9.4-12.3) fL Immature Gran % (Auto) 0.4 % Neut % (Auto) 78.8 % Lymph % (Auto) 10.2 % Jack % (Auto) 9.6 % Eos % (Auto) 0.4 % Baso % (Auto) 0.6 % Neut # (Auto) 8.81 H (1.4-6.5) K/uL Lymph # (Auto) 1.14 L (1.2-3.4) K/uL Jack # (Auto) 1.07 H (0.24-0.82) K/uL Eos # (Auto) 0.04 (0-0.50) K/uL Baso # (Auto) 0.07 (0-0.2) K/uL Immature Gran # (Auto) 0.05 H (0.00-0.02) K/uL Sodium 136 (136-145) mmol/L Potassium 3.8 (3.5-5.1) mmol/L Chloride 96 L (98-107) mmol/L Carbon Dioxide 31 (21-32) mmol/L Anion Gap 9 (3-11) BUN 12 (6-23) mg/dl Creatinine 0.50 L (0.6-1.2) mg/dl Est Cr Clr Drug Dosing 110.0 ml/min Est GFR ( Amer) 116.1 ml/min Est GFR (Non-Af Amer) 100.2 ml/min BUN/Creatinine Ratio 24.0 H (10-20) Glucose 94 (70-99(Fasting)) mg/dl Lactate (0.4-2.0) mmol/L Calcium 9.0 (8.5-10.1) mg/dl Magnesium (1.7-2.4) mg/dl Total Bilirubin 0.9 (0.2-1.0) mg/dl AST 8 L (13-39) U/L ALT 7 (7-52) U/L Alkaline Phosphatase 140 H (34-104) U/L Troponin I High Sens 4.2 (0-14) pg/ml Total Protein 6.8 (6.0-8.3) gm/dl Albumin 3.2 L (3.4-5.0) gm/dl Globulin 3.6 (2.5-4.0) gm/dl Albumin/Globulin Ratio 0.9 (0.9-2) Lipase 24 (11-82) U/L Procalcitonin (0-0.5) ng/ml Urine Color Urine Appearance (Clear) Urine pH (4.5-7.5) Ur Specific [place] (1.000-1.030) Urine Protein (Negative) Urine Glucose (UA) (Negative) Urine Ketones (Negative) Urine Blood (Negative) Urine Nitrite (Negative) Urine Bilirubin (Negative) Urine Urobilinogen (Negative) Ur Leukocyte Esterase (Negative) Urine WBC (Auto) (0-5) /hpf Urine RBC (Auto) (0-4) /hpf U Hyaline Cast (Auto) (0-5) /lpf U Epithel Cells (Auto) (0-5) /lpf Urine Bacteria (Auto) (Negative) SARS-CoV-2, RNA, NAAT (NEGATIVE) 06/06/22 06/06/22 06/06/22 Range/Units 15:14 15:14 16:46 WBC (4.8-10.8) K/ul RBC (3.93-5.22) M/uL Hgb (12.0-16.0) g/dl Hct (34.1-44.9) % MCV (80.0-100.0) fL MCH (25.0-34.0) pg MCHC (32.0-36.0) g/dL RDW Std Deviation (36.4-46.3) fL RDW Coeff of Forrest (11.5-14.5) % Plt Count (130-400) K/uL MPV (9.4-12.3) fL Immature Gran % (Auto) % Neut % (Auto) % Lymph % (Auto) % Jack % (Auto) % Eos % (Auto) % Baso % (Auto) % Neut # (Auto) (1.4-6.5) K/uL Lymph # (Auto) (1.2-3.4) K/uL Jack # (Auto) (0.24-0.82) K/uL Eos # (Auto) (0-0.50) K/uL Baso # (Auto) (0-0.2) K/uL Immature Gran # (Auto) (0.00-0.02) K/uL Sodium (136-145) mmol/L Potassium (3.5-5.1) mmol/L Chloride (98-107) mmol/L Carbon Dioxide (21-32) mmol/L Anion Gap (3-11) BUN (6-23) mg/dl Creatinine (0.6-1.2) mg/dl Est Cr Clr Drug Dosing ml/min Est GFR ( Amer) ml/min Est GFR (Non-Af Amer) ml/min BUN/Creatinine Ratio (10-20) Glucose (70-99(Fasting)) mg/dl Lactate (0.4-2.0) mmol/L Calcium (8.5-10.1) mg/dl Magnesium 1.8 (1.7-2.4) mg/dl Total Bilirubin (0.2-1.0) mg/dl AST (13-39) U/L ALT (7-52) U/L Alkaline Phosphatase (34-104) U/L Troponin I High Sens (0-14) pg/ml Total Protein (6.0-8.3) gm/dl Albumin (3.4-5.0) gm/dl Globulin (2.5-4.0) gm/dl Albumin/Globulin Ratio (0.9-2) Lipase (11-82) U/L Procalcitonin < 0.05 (0-0.5) ng/ml Urine Color Yellow Urine Appearance Clear (Clear) Urine pH 5.5 (4.5-7.5) Ur Specific [place] 1.012 (1.000-1.030) Urine Protein Negative (Negative) Urine Glucose (UA) Negative (Negative) Urine Ketones Negative (Negative) Urine Blood 2+ H (Negative) Urine Nitrite Negative (Negative) Urine Bilirubin Negative (Negative) Urine Urobilinogen Negative (Negative) Ur Leukocyte Esterase 1+ H (Negative) Urine WBC (Auto) 1-5 (0-5) /hpf Urine RBC (Auto) 5-10 H (0-4) /hpf U Hyaline Cast (Auto) 0 (0-5) /lpf U Epithel Cells (Auto) 10-20 H (0-5) /lpf Urine Bacteria (Auto) Negative (Negative) SARS-CoV-2, RNA, NAAT (NEGATIVE) 06/06/22 06/06/22 Range/Units 18:16 19:53 WBC (4.8-10.8) K/ul RBC (3.93-5.22) M/uL Hgb (12.0-16.0) g/dl Hct (34.1-44.9) % MCV (80.0-100.0) fL MCH (25.0-34.0) pg MCHC (32.0-36.0) g/dL RDW Std Deviation (36.4-46.3) fL RDW Coeff of Forrest (11.5-14.5) % Plt Count (130-400) K/uL MPV (9.4-12.3) fL Immature Gran % (Auto) % Neut % (Auto) % Lymph % (Auto) % Jack % (Auto) % Eos % (Auto) % Baso % (Auto) % Neut # (Auto) (1.4-6.5) K/uL Lymph # (Auto) (1.2-3.4) K/uL Jack # (Auto) (0.24-0.82) K/uL Eos # (Auto) (0-0.50) K/uL Baso # (Auto) (0-0.2) K/uL Immature Gran # (Auto) (0.00-0.02) K/uL Sodium (136-145) mmol/L Potassium (3.5-5.1) mmol/L Chloride (98-107) mmol/L Carbon Dioxide (21-32) mmol/L Anion Gap (3-11) BUN (6-23) mg/dl Creatinine (0.6-1.2) mg/dl Est Cr Clr Drug Dosing ml/min Est GFR ( Amer) ml/min Est GFR (Non-Af Amer) ml/min BUN/Creatinine Ratio (10-20) Glucose (70-99(Fasting)) mg/dl Lactate 0.9 (0.4-2.0) mmol/L Calcium (8.5-10.1) mg/dl Magnesium (1.7-2.4) mg/dl Total Bilirubin (0.2-1.0) mg/dl AST (13-39) U/L ALT (7-52) U/L Alkaline Phosphatase (34-104) U/L Troponin I High Sens (0-14) pg/ml Total Protein (6.0-8.3) gm/dl Albumin (3.4-5.0) gm/dl Globulin (2.5-4.0) gm/dl Albumin/Globulin Ratio (0.9-2) Lipase (11-82) U/L Procalcitonin (0-0.5) ng/ml Urine Color Urine Appearance (Clear) Urine pH (4.5-7.5) Ur Specific [place] (1.000-1.030) Urine Protein (Negative) Urine Glucose (UA) (Negative) Urine Ketones (Negative) Urine Blood (Negative) Urine Nitrite (Negative) Urine Bilirubin (Negative) Urine Urobilinogen (Negative) Ur Leukocyte Esterase (Negative) Urine WBC (Auto) (0-5) /hpf Urine RBC (Auto) (0-4) /hpf U Hyaline Cast (Auto) (0-5) /lpf U Epithel Cells (Auto) (0-5) /lpf Urine Bacteria (Auto) (Negative) SARS-CoV-2, RNA, NAAT NEGATIVE (NEGATIVE) Imaging Data Attestation: I personally reviewed and interpreted this imaging study as follows: My Impression: Chest x-ray with effusion on the right side. Radiologist's Impression: Chest X-Ray 06/06/22 15:50 XR chest 1V portable CLINICAL HISTORY: Chest pain. Shortness of breath. COMPARISON STUDY: Chest radiograph and chest CT May 26, 2022. FINDINGS: Left subclavian pacer is in place. There is no pneumothorax. Moderate right pleural effusion has increased in size since prior exam. There is a small left pleural effusion. Interstitial thickening represents pulmonary edema. Mild cardiomegaly is noted. IMPRESSION: 1. Interstitial pulmonary edema. 2. Increase in size of a moderate right pleural effusion. Small left pleural effusion. ACT 112: Negative or not required by law. Electronically signed by: Mando Maldonado M.D. 06/06/2022 6:11 PM Liver Ultrasound 06/06/22 15:50 US liver CLINICAL HISTORY: epigastric and RUQ pain COMPARISON STUDY: CT of the abdomen and pelvis May 26, 2022. FINDINGS: A moderate to large right pleural effusion is incidentally noted. Multiple anechoic hepatic lesions reflect cysts. There is also 1.6 cm hypoechoic left hepatic lobe lesion. Caliber of the common bile duct is at the upper limits of normal following cholecystectomy, measuring 7 mm. The pancreas is obscured on this exam. There is no right hydronephrosis. IMPRESSION: 1. No significant biliary ductal dilatation status post cholecystectomy. 2. Moderate to large right pleural effusion. 3. 1.6 cm hypoechoic left hepatic lobe lesion. Although probably benign, this is technically indeterminate although no suspicious hepatic lesions were shown on recent abdominal CT of May 26, 2022. Therefore, a follow-up ultrasound in 6 months to ensure stability is recommended. 4. Multiple additional hepatic lesions reflect cysts. ACT 112: Negative or not required by law. Electronically signed by: Mando Maldonado M.D. 06/06/2022 7:06 PM Preliminary findings only -see final report for complete findings CTA of the chest: Comparison 05/26/2022 Study is now positive for nonocclusive pulmonary embolism extending into branches of the left lower lobe basal segment divisions. Pericardial effusion is now measuring up to 1.6 cm. Interval significant appearing enlargement of now moderate to large right pleural effusion with further associated to partial passive collapse, at electasis of the right lower lobe and new partial passive collapse, atelectasis of the right middle lobe and portions of the posterior right upper lobe. Central airways appear patent. Very small left pleural effusion. Main pulmonary artery measures 3.6 cm and can be seen with pulmonary hypertension. Thoracic aorta appears within limits. Pacemaker noted. Radiologist: Brennen Cummings MD phone: [phone] Study read at 20:14 and initial results transmitted at 21:25 MDM Narrative I examined the patient. An IV lock was placed and labs were drawn. Continuous color television console monitor: Order was placed for continuous color television console monitor. Patient was placed on the color television console monitor and continuous pulse ox. Patient was noted to be in normal sinus rhythm at an initial rate of 77 bpm. EKG was interpreted by myself and shows normal sinus rhythm at 71 bpm with right axis deviation nonspec ific ST segment changes. The patient was given morphine 2 mg IV and Zofran 4 mg IV for pain followed by another 1 mg of morphine IV for continued pain. White blood cell count was slightly elevated at 11.18 with normal hemoglobin at 13.8. CMP without significant abnormalities other than alk phos elevated at 140. Lipase was normal. Troponin was normal. Lactate and procalcitonin were normal as well. Urinalysis with 2+ blood, 1+ leukocytes, and 10-20 epithelials. Blood cultures are pending. Chest x-ray showed interstitial pulmonary edema and increased size of a moderate right pleural effusion as well as a small left pleural effusion. Right upper quadrant ultrasound showed no significant biliary ductal dilation, status postcholecystectomy, moderate to large right pleural effusion, multiple hepatic lesions which are likely cysts, and a 1.6 cm hyperechoic left hepatic lobe lesion which appears benign as there were no suspicious hepatic lesions on the CT scan. 6-month follow-up ultrasound was recommended. The patient was given an albuterol nebulizer treatment initially due to the wheezing. On recheck her wheezing had resolved, but still had decreased movement of air on the right side consistent with the chest x-ray findings. The patient required between 2 to 3 L of oxygen during her stay to remain around 95%. The patient was ambulated for short distance with pulse ox and her pulse ox dropped to 86% and even at rest in the bed her pulse ox did not go above 90% without supplemental oxygen. I had a meaningful discussion about this patient with Dr. Caceres. They agree with my assessment and the treatment plan. A decision was made to admit the patient due to her hypoxia and worsening shortness of breath and worsening chest x-ray findings. I spoke with the hospitalist who agreed to admit the patient. Just prior to speaking with the hospitalist nursing staff alerted me that the patient went into A. fib with rapid ventricular response with heart rates ranging between 120 and 170. Repeat EKG was obtained and interpreted by myself as atrial fibrillation with rapid ventricular response at 146 bpm. The patient's blood pressure was 92/75, therefore, antiarrhythmics were not started initially. She was given normal saline solution [address] scan o f the chest with contrast was then obtained. Orders were then placed by the hospitalist including antiarrhythmics once her blood pressure improved. Please refer to the hospitalist note for further details. The patient's care was transferred in stable condition. After admission orders had already been placed stat rad results of the CTA of the chest were received. It does show a new nonocclusive pulmonary embolism in the left lower lobe at the basal branches. Also shows that the pleural effusion is significantly larger. There is also a larger pericardial effusion which is now of significance. These results were also given to the admitting hospitalist for further management. Impression & Plan Hypoxia, SOB (shortness of breath), Atrial fibrillation with RVR Discharge Plan Visit Data Chief Complaint: Illness Stated Complaint: BREATHING TROUBLE, CHEST PAIN, FATIGUE ED Provider: Tom Caceres ED Midlevel Provider: Salvador,Ashley A. Discharge Problem: Hypoxia, SOB (shortness of breath), Atrial fibrillation with RVR Patient Disposition: Admitted As Inpatient Condition: Good Discharge Instructions Interventions: ED Discharge Assessment Last Done: 06/06/22 21:53
[2022-06-06] MEDS ORDERED: ONDANSETRON INJ 2 MG/ML 2 ML VIAL IV STA (15:50)
[2022-06-06] MEDS ORDERED: ALBUTEROL 0.083% NEBU SOLN 3 ML VIAL NEB STA (15:50)
[2022-06-06] MEDS ORDERED: MoRPHine SULFATE 2 MG/ML CARP IV STA ×2 (15:50→19:19)
[2022-06-06 15:54] LABS: Albumin Globulin Ratio 0.9 (0.9-2); Albumin Level 3.2 gm/dl (3.4-5.0); Bilirubin,Total 0.9 mg/dl (0.2-1.0); Est GFR (African American) 116.1 ml/min; Est GFR (Non-African American) 100.2 ml/min; Globulin 3.6 gm/dl (2.5-4.0); Potassium 3.8 mmol/L (3.5-5.1); Total Protein 6.8 gm/dl (6.0-8.3)
[2022-06-06 16:51] LABS: Troponin I High Sensitivity 4.2 pg/ml (0-14)
[2022-06-06 17:03] LABS: Appearance Urine Clear (Clear); Bacteria Urine Automated Negative (Negative); Bilirubin Urine Negative (Negative); Blood Urine 2+ (Negative); Cast Urine Automated 0 /lpf (0-5); Color Urine Yellow; Glucose Urine UA Negative (Negative); Ketones Urine Negative (Negative); Leukocyte Esterase Urine 1+ (Negative); Nitrite Urine Negative (Negative); Protein Urine Negative (Negative); Specific Gravity Urine 1.012 (1.000-1.030); Urobilinogen Urine Negative (Negative); pH Urine 5.5 (4.5-7.5)
--- NOTE | 2022-06-06 17:07 | Electrocardiogram Report ---
Test Reason : Blood Pressure : / mmHG Vent. Rate : 071 BPM Atrial Rate : 071 BPM P-R Int : 140 ms QRS Dur : 096 ms QT Int : 460 ms P-R-T Axes : 081 108 111 degrees QTc Int : 499 ms Normal sinus rhythm Suspect limb lead misconnection Rightward axis Low voltage QRS Cannot rule out Anterior infarct , age undetermined T wave abnormality, consider lateral ischemia Abnormal ECG When compared with ECG of 28-MAY-2022 06:24, Sinus rhythm has replaced Electronic atrial pacemaker QRS axis Shifted right Non-specific change in ST segment in Inferior leads QT has lengthened Confirmed by Krishna Johnson ([id number]) on 06/06/2022 5:06:43 PM Referred By: Confirmed By:Krishna Johnson
--- NOTE | 2022-06-06 18:12 | XRay Report ---
XR chest 1V portable CLINICAL HISTORY: Chest pain. Shortness of breath. COMPARISON STUDY: Chest radiograph and chest CT May 26, 2022. FINDINGS: Left subclavian pacer is in place. There is no pneumothorax. Moderate right pleural effusio n has increased in size since prior exam. There is a small left pleural effusion. Interstitial thicke adele represents pulmonary edema. Mild cardiomegaly is noted. IMPRESSION: 1. Interstitial pulmonary edema. 2. Increase in size of a moderate right pleural effusion. Small left pleural effusion. ACT 112: Negative or not required by law. Electronically signed by: Mando Maldonado M.D. 06/06/2022 6:11 PM
--- NOTE | 2022-06-06 19:08 | Ultrasound Report ---
US liver CLINICAL HISTORY: epigastric and RUQ pain COMPARISON STUDY: CT of the abdomen and pelvis May 26, 2022. FINDINGS: A moderate to large right pleural effusion is incidentally noted. Multiple anechoic hepatic lesions reflect cysts. There is also 1.6 cm hypoechoic left hepatic lobe lesion. Caliber of the comm on bile duct is at the upper limits of normal following cholecystectomy, measuring 7 mm. The pancreas is obscured on this exam. There is no right hydronephrosis. IMPRESSION: 1. No significant biliary ductal dilatation status post cholecystectomy. 2. Moderate to large right pleural effusion. 3. 1.6 cm hypoechoic left hepatic lobe lesion. Although probably benign, this is technically indeterm inate although no suspicious hepatic lesions were shown on recent abdominal CT of May 26, 2022. Therefore, a follow-up ultrasound in 6 months to ensure stability is recommended. 4. Multiple additional hepatic lesions reflect cysts. ACT 112: Negative or not required by law. Electronically signed by: Mando Maldonado M.D. 06/06/2022 7:06 PM
[2022-06-06] MEDS ORDERED: SODIUM CHLORIDE 0.9% 1000ML 500 ML IV ONE (19:44)
[2022-06-06] MEDS ORDERED: POTASSIUM CHLORIDE CRTAB 20 MEQ TABCR PO STA (20:03)
--- NOTE | 2022-06-06 20:05 | History & Physical Report ---
Date of Service June 06, 2022 Assessment & Plan (1) Acute hypoxemic respiratory failure: Plan: Multifactorial : Secondary to acute CHF Secondary to uncontrolled A. fib hx SSS status post PPM on Eliquis Underlying pulmonary hypertension Rule out pacemaker dysfunction Rule out underlying PAULINO given specific complaints Recurrent PE, may have developed prior to recent initiation of Eliquis Rx Progressive right pleural effusion, pericardial effusion secondary to CHF (Note of small right pleural effusion noted on 02/2022, months before pacemaker procedure.) Pleurisy secondary to right pleural effusion HTN, BP on the lower side hx fibromyalgia ongoing tobacco abuse PCU supplemental O2 Lasix albumin given borderline BP Strict I/Os, daily weights, fluid restriction Digoxin for now given borderline BP, facilitate Amiodarone Pacemaker interrogation Update TTE RE enlarging pericardial effusion Cardiology consult Re: CHF, recurrent AF, pericardial effusion Lidoderm patch trial for pleurisy Follow-up chest x-ray in a.m. for right pleural effusion May benefit from Pulmonology input if right pleural effusion still significant after diuretic Rx. Outpatient sleep study Nicotine patch as needed DVT prophylaxis. Eliquis Full code Total critical care time was 45 minutes History of Present Illness Chief Complaint: Persistent chest pain, shortness of breath Primary Care Provider: Pedro Hayden DO History obtained from patient and records. Medical history significant for SSS sp PPM on Eliquis, HTN, pulmonary hypertension, iatrogenic PE, fibromyalgia, ongoing tobacco abuse Patient underwent outpatient PPM placement for SSS syndrome 3 weeks ago. A few days after procedure, patient noted pleuritic right-sided chest pain with shortness of breath. Subsequent [facility] confinement 2 weeks ago for atrial pacemaker lead displacement. Patient underwent lead repositioning. CT chest showed small pericardial effusion and moderate right pleural effusion. Patient still with persistent right-sided chest pain following discharge. Worse with motion. Episodic palpitations with shortness of breath. Patient thinks she is still going for A. fib. Patient mentioned symptoms to PCP on follow-up visit 4 days ago. Patient noted to be in A. fib at the office. PCP communicated with patient center sales and service associate subsequently initiation of Amiodarone (200 mg 3 times daily for 2 weeks then once daily) and Eliquis medications. Preceding symptoms over the next few days despite compliance with new medications. Denies dietary discretion. Usual stress at home. Patient also gives history of snoring and waking up in the morning not feeling rested despite 8 hours of sleep. No unusual cough symptoms. Leg swelling without weight gain. Patient consulted ER. Patient went into rapid A. fib while waiting at the ER. O2 sats later noted to be 80s on room air. . Medical History as above SURGICAL HISTORY: . cholecystectomy. Bowel surgery for complicated diverticulitis. PPM. Appendectomy, colostomy revision, hip replacement, hernia repair FAMILY HISTORY: Heart disease, pulmonary embolism, colon cancer, breast cancer, lung cancer PERSONAL/ SOCIAL HISTORY: Few cigarettes a day, no EtOH intake, disabled Allergies Allergy/AdvReac Type Severity Reaction Status Date / Time domiphen Allergy Severe tongue Verified 06/06/22 16:17 swelling cephalexin Allergy Intermediate RASH Verified 06/06/22 16:17 Cephalosporins Allergy Intermediate hives, Verified 06/06/22 16:17 itching Ceepryn Chloride Allergy Severe tongue Uncoded 06/06/22 16:17 swelling Home Medications Medication Instructions Recorded Confirmed Type fluoxetine 40 mg capsule (Prozac) 40 mg PO QAM 09/29/19 06/07/22 History polyethylene glycol 3350 17 gram 17 g PO DAILY 09/29/19 06/07/22 History oral powder packet (Miralax) trazodone 100 mg tablet 100 mg PO HS 09/29/19 06/07/22 History furosemide 20 mg tablet 20 mg PO DAILY 05/12/22 06/07/22 History spironolactone 25 mg tablet 12.5 mg PO DAILY 05/26/22 06/07/22 History (Aldactone) acetaminophen 325 mg tablet 650 mg PO Q4H PRN pain #30 tabs 05/28/22 06/07/22 Rx amiodarone 200 mg tablet 200 mg PO DIRECTED 06/06/22 06/07/22 History apixaban 5 mg tablet (Eliquis) 5 mg PO BID 06/06/22 06/07/22 History echinacea purpurea extract 125 mg 125 mg PO DAILY 06/06/22 06/07/22 History tablet (echinacea) oxycodone-acetaminophen 5 mg-325 1 tab PO DIRECTED PRN Pain 06/06/22 06/07/22 History mg tablet cyanocobalamin (vitamin B-12) 1,000 mcg PO DAILY 06/07/22 06/07/22 History 1,000 mcg tablet (Vitamin B-12) meclizine 12.5 mg tablet 12.5 mg PO TID PRN Dizziness 06/07/22 06/07/22 History vitamin K2 100 mcg capsule 100 mcg PO DAILY 06/07/22 06/07/22 History Past Med/Surg History Medical History A-fib Acute diverticulitis Anxiety Depression Dyslipidemia GERD (gastroesophageal reflux disease) Pulmonary emboli Surgical History H/O section History of appendectomy History of bowel resection History of colostomy reversal History of hernia repair History of total hip arthroplasty History of total knee arthroplasty Hx of cholecystectomy Family History Mother , 76 Myocardial infarction Father , 76 Stroke Social History Smoking Status: Current every day smoker Tobacco Type: Cigarettes packs per day: 1; Years Smoked: 40; Cigarettes Per Day: 2-3; Hx Alcohol Use: Yes Alcohol type: wine Hx Substance Use: No 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 Beliefs That Will Affect Care: None marital status: Current Living Situation: Spouse and Family Feels Safe at Home: Yes Safety Concerns: Feels Safe At This Time Assistive Devices: Denture - Upper and Denture - Lower Review of Systems 2 Review of Systems: As per HPI, all other systems reviewed and negative Physical Exam Physical Exam: GENERAL: uncomfortable, obese, minimal respiratory distress SKIN: Normal color, warm HEENT: [place] palpebral conjunctivae, no ptosis, dry buccal mucosa, nasal cannula in place NECK : Supple, no tenderness CHEST : Decreased breath sounds, no tenderness HEART : Irregular, tachycardic, no obvious murmurs ABDOMEN: Some distention, nontender EXTREMITIES : Minimal LE swelling, no LE tenderness, no other conspicuous deformities noted NEUROLOGIC : Coherent, no facial asymmetry, no other gross focality Results & Data Results & Data ([facility]) Vital Signs (Past 12 Hours) Vital Signs Temp Pulse Pulse Resp Resp BP BP 06/06/22 19:40 124 H 20 06/06/22 19:39 127 H 19 06/06/22 19:39 92/75 L 06/06/22 19:30 135 H 20 06/06/22 19:20 70 18 06/06/22 19:10 77 18 06/06/22 19:00 73 20 06/06/22 18:50 73 19 06/06/22 18:40 73 18 06/06/22 18:30 73 21 06/06/22 18:20 72 18 06/06/22 18:13 73 06/06/22 17:30 72 18 06/06/22 17:20 79 18 06/06/22 17:10 84 17 06/06/22 17:00 69 17 06/06/22 17:00 131/90 06/06/22 16:50 71 18 06/06/22 16:45 76 21 06/06/22 16:30 69 20 06/06/22 16:20 70 18 06/06/22 16:10 72 14 06/06/22 16:00 70 20 06/06/22 16:00 130/77 06/06/22 15:54 72 21 06/06/22 18:59 22 06/06/22 18:00 68 20 06/06/22 16:49 73 20 130/77 06/06/22 16:00 68 20 130/77 06/06/22 15:28 72 24 139/82 06/06/22 13:21 06/06/22 13:10 36.8 C 74 22 109/68 Pulse Ox Pulse Ox O2 Del Method O2 Flow Rate 06/06/22 19:40 88 L 06/06/22 19:39 93 06/06/22 19:39 06/06/22 19:30 94 06/06/22 19:20 94 06/06/22 19:10 95 06/06/22 19:00 95 06/06/22 18:50 94 06/06/22 18:40 95 06/06/22 18:30 95 06/06/22 18:20 94 06/06/22 18:13 96 06/06/22 17:30 96 06/06/22 17:20 06/06/22 17:10 96 06/06/22 17:00 96 06/06/22 17:00 06/06/22 16:50 96 06/06/22 16:45 88 L 06/06/22 16:30 94 06/06/22 16:20 93 06/06/22 16:10 90 06/06/22 16:00 98 06/06/22 16:00 06/06/22 15:54 95 06/06/22 18:59 86 L Room Air 06/06/22 18:00 95 Room Air 06/06/22 16:49 96 Room Air 06/06/22 16:00 98 Nebulizer 8 06/06/22 15:28 94 Nasal Cannula 2 06/06/22 13:21 90 Nasal Cannula 2 06/06/22 13:10 90 Room Air Laboratory Results Laboratory Results WBC 11.18 K/ul (4.8-10.8) H 06/06/22 15:14 RBC 4.22 M/uL (3.93-5.22) 06/06/22 15:14 Hgb 13.8 g/dl (12.0-16.0) 06/06/22 15:14 Hct 39.3 % (34.1-44.9) 06/06/22 15:14 MCV 93.1 fL (80.0-100.0) 06/06/22 15:14 MCH 32.7 pg (25.0-34.0) 06/06/22 15:14 MCHC 35.1 g/dL (32.0-36.0) 06/06/22 15:14 RDW Std Deviation 47.5 fL (36.4-46.3) H 06/06/22 15:14 RDW Coeff of [place] 13.9 % (11.5-14.5) 06/06/22 15:14 Plt Count 430 K/uL (130-400) H 06/06/22 15:14 MPV 8.7 fL (9.4-12.3) L 06/06/22 15:14 Immature Gran % (Auto) 0.4 % 06/06/22 15:14 Neut % (Auto) 78.8 % 06/06/22 15:14 Lymph % (Auto) 10.2 % 06/06/22 15:14 [place] % (Auto) 9.6 % 06/06/22 15:14 Eos % (Auto) 0.4 % 06/06/22 15:14 Baso % (Auto) 0.6 % 06/06/22 15:14 Neut # (Auto) 8.81 K/uL (1.4-6.5) H 06/06/22 15:14 Lymph # (Auto) 1.14 K/uL (1.2-3.4) L 06/06/22 15:14 [place] # (Auto) 1.07 K/uL (0.24-0.82) H 06/06/22 15:14 Eos # (Auto) 0.04 K/uL (0-0.50) 06/06/22 15:14 Baso # (Auto) 0.07 K/uL (0-0.2) 06/06/22 15:14 Immature Gran # (Auto) 0.05 K/uL (0.00-0.02) H 06/06/22 15:14 Sodium 136 mmol/L (136-145) 06/06/22 15:14 Potassium 3.8 mmol/L (3.5-5.1) 06/06/22 15:14 Chloride 96 mmol/L (98-107) L 06/06/22 15:14 Carbon Dioxide 31 mmol/L (21-32) 06/06/22 15:14 Anion Gap 9 (3-11) 06/06/22 15:14 BUN 12 mg/dl (6-23) 06/06/22 15:14 Creatinine 0.50 mg/dl (0.6-1.2) L 06/06/22 15:14 Est Cr Clr Drug Dosing 110.0 ml/min 06/06/22 15:14 Est GFR ( Amer) 116.1 ml/min 06/06/22 15:14 Est GFR (Non-Af Amer) 100.2 ml/min 06/06/22 15:14 BUN/Creatinine Ratio 24.0 (10-20) H 06/06/22 15:14 Glucose 94 mg/dl (70-99(Fasting)) 06/06/22 15:14 Lactate 0.9 mmol/L (0.4-2.0) 06/06/22 18:16 Calcium 9.0 mg/dl (8.5-10.1) 06/06/22 15:14 Total Bilirubin 0.9 mg/dl (0.2-1.0) 06/06/22 15:14 AST 8 U/L (13-39) L 06/06/22 15:14 ALT 7 U/L (7-52) 06/06/22 15:14 Alkaline Phosphatase 140 U/L (34-104) H 06/06/22 15:14 Troponin I High Sens 4.2 pg/ml (0-14) 06/06/22 15:14 Total Protein 6.8 gm/dl (6.0-8.3) 06/06/22 15:14 Albumin 3.2 gm/dl (3.4-5.0) L 06/06/22 15:14 Globulin 3.6 gm/dl (2.5-4.0) 06/06/22 15:14 Albumin/Globulin Ratio 0.9 (0.9-2) 06/06/22 15:14 Lipase 24 U/L (11-82) 06/06/22 15:14 Procalcitonin < 0.05 ng/ml (0-0.5) 06/06/22 15:14 Urine Color Yellow 06/06/22 16:46 Urine Appearance Clear (Clear) 06/06/22 16:46 Urine pH 5.5 (4.5-7.5) 06/06/22 16:46 Ur Specific [place] 1.012 (1.000-1.030) 06/06/22 16:46 Urine Protein Negative (Negative) 06/06/22 16:46 Urine Glucose (UA) Negative (Negative) 06/06/22 16:46 Urine Ketones Negative (Negative) 06/06/22 16:46 Urine Blood 2+ (Negative) H 06/06/22 16:46 Urine Nitrite Negative (Negative) 06/06/22 16:46 Urine Bilirubin Negative (Negative) 06/06/22 16:46 Urine Urobilinogen Negative (Negative) 06/06/22 16:46 Ur Leukocyte Esterase 1+ (Negative) H 06/06/22 16:46 Urine WBC (Auto) 1-5 /hpf (0-5) 06/06/22 16:46 Urine RBC (Auto) 5-10 /hpf (0-4) H 06/06/22 16:46 U Hyaline Cast (Auto) 0 /lpf (0-5) 06/06/22 16:46 U Epithel Cells (Auto) 10-20 /lpf (0-5) H 06/06/22 16:46 Urine Bacteria (Auto) Negative (Negative) 06/06/22 16:46 Impressions Chest X-Ray 06/06/22 15:50 XR chest 1V portable CLINICAL HISTORY: Chest pain. Shortness of breath. COMPARISON STUDY: Chest radiograph and chest CT May 26, 2022. FINDINGS: Left subclavian pacer is in place. There is no pneumothorax. Moderate right pleural effusion has increased in size since prior exam. There is a small left pleural effusion. Interstitial thickening represents pulmonary edema. Mild cardiomegaly is noted. IMPRESSION: 1. Interstitial pulmonary edema. 2. Increase in size of a moderate right pleural effusion. Small left pleural effusion. ACT 112: Negative or not required by law. Electronically signed by: Mando Maldonado M.D. 06/06/2022 6:11 PM Liver Ultrasound 06/06/22 15:50 US liver CLINICAL HISTORY: epigastric and RUQ pain COMPARISON STUDY: CT of the abdomen and pelvis May 26, 2022. FINDINGS: A moderate to large right pleural effusion is incidentally noted. Multiple anechoic hepatic lesions reflect cysts. There is also 1.6 cm hypoechoic left hepatic lobe lesion. Caliber of the common bile duct is at the upper limits of normal following cholecystectomy, measuring 7 mm. The pancreas is obscured on this exam. There is no right hydronephrosis. IMPRESSION: 1. No significant biliary ductal dilatation status post cholecystectomy. 2. Moderate to large right pleural effusion. 3. 1.6 cm hypoechoic left hepatic lobe lesion. Although probably benign, this is technically indeterminate although no suspicious hepatic lesions were shown on recent abdominal CT of May 26, 2022. Therefore, a follow-up ultrasound in 6 months to ensure stability is recommended. 4. Multiple additional hepatic lesions reflect cysts. ACT 112: Negative or not required by law. Electronically signed by: Mando Maldonado M.D. 06/06/2022 7:[address] chest initial read: Studyis nowpositive for nonocclusive pulmonaryembolismat the and extending into branches left lower lobe basal segment divisions for example axial 124 series 4 Pericardial effusion nowmeasuring up to 1.6 cm, clinicallycorrelate Interval significant appearing enlargement of nowmoderate to large right pleural effusion with further associated partial passive collapse, atelectasis of the right lower lobe and newpartial passive collapse, atelectasis of the right middle lobe and portions of the posterior right upper lobe Central airways appear patent Verysmall left pleural effusion Main pulmonaryarterymeasures 3.6 cm, can be seen with pulmonaryhypertension, nonspecific Thoracic aorta appearswithin limits Pacemaker again noted. EKG as per my interpretation : Rate 70, NSR, RAD diffuse T wave abnormalities, low voltage
[2022-06-06] MEDS ORDERED: ALBUMIN 25% 100 mL 25 GM/100 ML VIAL IV ONE (20:10)
[2022-06-06] MEDS ORDERED: OPTIRAY 300 500mL IV ONE (20:10)
[2022-06-06] MEDS ORDERED: FUROSEMIDE INJ 20 MG/2 ML VIAL IV ONE (20:10)
[2022-06-06] MEDS ORDERED: AMIODARONE 200 MG TAB PO STA (20:14)
[2022-06-06] MEDS ORDERED: MAGNESIUM SULFATE / D5W 1 GM/100 ML BAG IV ONE (20:15)
[2022-06-06] MEDS ORDERED: DIGOXIN 500 MCG/2 ML AMP IV ONE (20:15)
[2022-06-06] MEDS ORDERED: oxyCODONE HCL IR 5 MG TAB (IMMEDIATE RELEASE) PO STA (20:42)
--- NOTE | 2022-06-06 21:02 | Emergency Department Note ---
ED Visit Note I was consulted by the Advanced Practice Provider. I saw the patient personally and performed a substantive portion of the visit. This includes aspects of the HPI, MDM, diagnostic interpretations, and disposition/plan. .
[2022-06-06] MEDS ORDERED: PROMETHAZINE HCL 12.5 MG in SODIUM CHLORIDE 0.9% 50 ML IV PRN (22:39)
[2022-06-06] MEDS ORDERED: ACETAMINOPHEN 325 MG TAB PO PRN (22:39)
[2022-06-06] MEDS ORDERED: POLYETHYLENE (MIRALAX) 17 GM PACK PO PRN (22:39)
[2022-06-06] MEDS: traZODone HCL 100 MG TAB PO SCH (23:21)
[2022-06-06] MEDS: APIXABAN 5 MG TABLET PO SCH (23:21)
[2022-06-06] MEDS ORDERED: DIGOXIN 250 MCG in SYRINGE 9 ML IV ONE (23:35)
[2022-06-06] MEDS: LIDOCAINE 5% 1 PATCH TD SCH (23:51)
[2022-06-07] MEDS ORDERED: AMIODARONE 200 MG TAB PO SCH ×3 (03:55→09:00)
--- NOTE | 2022-06-07 07:00 | XRay Report ---
XR chest 1V portable CLINICAL HISTORY: ffup, pleural effusion COMPARISON STUDY: Chest radiograph and chest CT June 06, 2022. FINDINGS: Dual lead left subclavian pacer is in place. There is no pneumothorax. Pulmonary vascular c ongestion is noted. Moderate to large right pleural effusion is similar to prior chest radiograph and chest CT. Cardiomediastinal silhouette is stable. Trace left pleural effusion. IMPRESSION: 1. No significant change in a moderate to large right pleural effusion. Trace left pleural effusion. 2. Cardiomegaly. No overt pulmonary edema. ACT 112: Negative or not required by law. Electronically signed by: Mando Maldonado M.D. 06/07/2022 6:59 AM
--- NOTE | 2022-06-07 07:42 | CT Scan Report ---
CT ANGIOGRAPHY OF THE CHEST, PULMONARY EMBOLUS PROTOCOL CLINICAL HISTORY: Shortness of breath. COMPARISON STUDY: Chest CT May 26, 2022 chest radiograph performed earlier today. TECHNIQUE: Following IV administration of 97 mL of Optiray, helical axial images of the chest were ob tained utilizing the pulmonary embolus protocol. Maximal intensity projections and sagittal and rhonda nal reformats were viewed on an independent 3D workstation. IV contrast was administered without com plication. Automated exposure control was utilized for the study. A dose lowering technique was uti lized adhering to the principles of ALARA. CT DOSE: 399.10 mGy.cm FINDINGS: Several segmental pulmonary emboli within the left lower lobe are new since chest CT of Se ptember 2021. No central pulmonary emboli are present. Central pulmonary arteries are mildly dila diana. A left subclavian pacer is in place. Mild cardiomegaly is noted. A small to moderate pericardial effusion has increased in size since prior CT. A large right pleural effusion has increased in size since prior CT as well. This effusion is loculated. Associated right lower lobe airspace opacity with volume loss favors compressive atelectasis. There is segmental atelectasis within the right upper lo be. A small left pleural effusion is noted. There is no pneumothorax. Patchy groundglass opacities wi thin the lungs are present. There is no thoracic lymphadenopathy. No acute fracture or suspicious les ion within the bony thorax is identified. Hepatic lesions favor cysts. IMPRESSION: 1. Several segmental pulmonary emboli within the left lower lobe, new since chest CT of May 26, 2022. 2. Increase in size of a loculated large right pleural effusion. Partial compressive atelectasis of t he right lower lobe. Small left pleural effusion. 3. Increase in size of a small to moderate pericardial effusion. ACT 112: Negative or not required by law. Electronically signed by: Mando Maldonado M.D. 06/07/2022 7:40 AM
[2022-06-07 07:58] LABS: Basophils # (auto) 0.08 K/uL (0-0.2); Basophils % (auto) 0.9 %; Eosinophils # (auto) 0.27 K/uL (0-0.50); Eosinophils % (auto) 2.9 %; Hematocrit (blood only) 35.5 % (34.1-44.9); Hemoglobin 12.2 g/dl (12.0-16.0); Immature Granulocytes # (auto) 0.03 K/uL (0.00-0.02); Immature Granulocytes % (auto) 0.3 %; Lymphocytes # (auto) 1.31 K/uL (1.2-3.4); Lymphocytes % (auto) 14.1 %; Mean Corpuscular Hemoglobin 31.5 pg (25.0-34.0); Mean Corpuscular Hgb Conc 34.4 g/dL (32.0-36.0); Mean Corpuscular Volume 91.7 fL (80.0-100.0); Mean Platelet Volume 8.6 fL (9.4-12.3); Monocytes # (auto) 1.14 K/uL (0.24-0.82); Monocytes % (auto) 12.3 %; Neutrophils # (auto) 6.45 K/uL (1.4-6.5); Neutrophils % (auto) 69.5 %; Platelet Count 397 K/uL (130-400); RDW Coefficient of Variation 14.2 % (11.5-14.5); RDW Standard Deviation 47.9 fL (36.4-46.3); Red Blood Count 3.87 M/uL (3.93-5.22); White Blood Count 9.28 K/ul (4.8-10.8)
[2022-06-07] MEDS ORDERED: ALBUMIN 25% 12.5 GM/50 ML VIAL IV ONE (08:00)
[2022-06-07] MEDS ORDERED: FUROSEMIDE INJ 20 MG/2 ML VIAL IV ONE (08:00)
[2022-06-07 08:24] LABS: Calcium 8.4 mg/dl (8.5-10.1); Creatinine Clr Calc Pharmacy 124.6 ml/min; Est GFR (African American) 121.1 ml/min; Est GFR (Non-African American) 104.5 ml/min
[2022-06-07] MEDS: SPIRONOLACTONE 12.5 MG TAB PO SCH (08:30)
[2022-06-07] MEDS: FLUoxetine HCL 20 MG CAP PO SCH (08:30)
[2022-06-07] MEDS: POTASSIUM CHLORIDE CRTAB 20 MEQ TABCR PO SCH ×2 (08:30→16:57)
[2022-06-07] MEDS: APIXABAN 5 MG TABLET PO SCH (08:31)
--- NOTE | 2022-06-07 08:44 | Cardiology Consultation ---
Date of Consultation June 07, 2022 Assessment & Plan (1) Acute hypoxemic respiratory failure: (2) SOB (shortness of breath): (3) Atrial fibrillation with RVR: (4) Atrial pacemaker lead displacement: (5) Chest pain, pleuritic: (6) Pleural effusion: (7) Pulmonary emboli: (8) Pericardial effusion: Plan Pulmonary's consult appreciated. Patient will be switched over to heparin and then when appropriate have a thoracentesis completed. On the chest x-ray it appears that her pacemaker leads are in the appropriate position. The pacemaker will be interrogated today. Her heart rates remain high. I would continue the amiodarone loading and I will add a low-dose beta-garett. At this time it is likely that the pleural and pericardial fluid is related to the pulmonary emboli. There is no evidence of cardiac tamponade. We will obtain more information once the thoracentesis is completed. Otherwise, provide analgesia as needed. Patient is clinically stable. History of Present Illness Attending Physician: Alvaro Piper MD History of Present Illness This is a medically complex 67-year-old with some of her medical history as outlined below. In April she had a pacemaker implanted for sick sinus syndrome and a history of paroxysmal atrial fibrillation. Several weeks later she had a revision of the pacemaker due to dislodgment of the atrial lead. Early last week she presented to her PCP with complaints of right-sided chest discomfort and was noted to be in atrial fibrillation with RVR. She was started on amiodarone and Eliquis. Prior to admission she had worsening of her right pleuritic chest pain and increased shortness of breath. She presented to the emergency department. His CT of the chest indicated multisegmental right pulmonary emboli along with a right pleural effusion. Since the patient developed atrial fibrillation and right paretic chest pain prior to being started on Eliquis last week I believe the pulmonary emboli predated the start of anticoagulation. She has already been seen by the pulmonary service. They plan on performing a thoracentesis after being off of Eliquis for 48 hours. Switch has been made to IV heparin. Pacemaker will be interrogated. She does have a moderate sized pericardial effusion without tamponade. I started her on colchicine. 1. Paroxysmal atrial fibrillation 1996/PVT/sick sinus syndrome 2. Status post dual-chamber pacemaker insertion 05/12/2022 with atrial lead dislodgment planned revision 05/27/2022 3. Hypertension 4. Hyperlipidemia 5. Chronic tobacco use to use 6. History of prior pulmonary embolus. 7. Remote coronary angiography without obstructive disease 2010 Allergies Allergy/AdvReac Type Severity Reaction Status Date / Time domiphen Allergy Severe tongue Verified 06/06/22 16:17 swelling cephalexin Allergy Intermediate RASH Verified 06/06/22 16:17 Cephalosporins Allergy Intermediate hives, Verified 06/06/22 16:17 itching Ceepryn Chloride Allergy Severe tongue Uncoded 06/06/22 16:17 swelling Home Medications Medication Instructions Recorded Confirmed Type fluoxetine 40 mg capsule (Prozac) 40 mg PO QAM 09/29/19 06/07/22 History polyethylene glycol 3350 17 gram 17 g PO DAILY 09/29/19 06/07/22 History oral powder packet (Miralax) trazodone 100 mg tablet 100 mg PO HS 09/29/19 06/07/22 History furosemide 20 mg tablet 20 mg PO DAILY 05/12/22 06/07/22 History spironolactone 25 mg tablet 12.5 mg PO DAILY 05/26/22 06/07/22 History (Aldactone) acetaminophen 325 mg tablet 650 mg PO Q4H PRN pain #30 tabs 05/28/22 06/07/22 Rx amiodarone 200 mg tablet 200 mg PO DIRECTED 06/06/22 06/07/22 History apixaban 5 mg tablet (Eliquis) 5 mg PO BID 06/06/22 06/07/22 History echinacea purpurea extract 125 mg 125 mg PO DAILY 06/06/22 06/07/22 History tablet (echinacea) oxycodone-acetaminophen 5 mg-325 1 tab PO DIRECTED PRN Pain 06/06/22 06/07/22 History mg tablet cyanocobalamin (vitamin B-12) 1,000 mcg PO DAILY 06/07/22 06/07/22 History 1,000 mcg tablet (Vitamin B-12) meclizine 12.5 mg tablet 12.5 mg PO TID PRN Dizziness 06/07/22 06/07/22 History vitamin K2 100 mcg capsule 100 mcg PO DAILY 06/07/22 06/07/22 History Patient History Medical History A-fib Acute diverticulitis Anxiety Depression Dyslipidemia GERD (gastroesophageal reflux disease) Pulmonary emboli Surgical History H/O section History of appendectomy History of bowel resection History of colostomy reversal History of hernia repair History of total hip arthroplasty History of total knee arthroplasty Hx of cholecystectomy Family History Mother , 76 Myocardial infarction Father , 76 Stroke Social History Smoking Status: Current every day smoker Tobacco Type: Cigarettes packs per day: 1; Years Smoked: 40; Cigarettes Per Day: 2-3; Hx Alcohol Use: Yes Alcohol type: wine Hx Substance Use: No Preferred Language: [place] Communication Ability: Effective Merchandise Director Required: No Beliefs That Will Affect Care: None marital status: Current Living Situation: Spouse and Family Feels Safe at Home: Yes Safety Concerns: Feels Safe At This Time Assistive Devices: Cane Review of Systems Review of Systems: Review of Systems: See HPI for pertinent positives. All other 10 point review of systems are negative. Physical Exam Physical Exam: General: no acute distress and stated age Head: normocephalic, no masses, lesions, tenderness or abnormalities Eyes: conjunctiva are pink and non-injected, sclera clear Neck: supple, no adenopathy, no bruits, normal jugular venous pulse, no hepatojugular reflux Chest: normal shape and normal respiratory effort Lungs: Decreased breath sounds on the right. Cardiac Exam: - irregular rate & rhythm, no murmurs gallops or rubs - normal S1, normal S2 Pulses: 2(+) throughout Abdomen: abdomen soft, non-tender, no abnormal masses and no hepatosplenomegaly Musculoskeletal: no gait disturbance, no joint inflammation, no deforming arthritis Extremities: no edema and no cyanosis Neuro: grossly normal exam Results & Data ([facility]) Vital Signs (Past 12 Hours) Vital Signs Temp Pulse Pulse Resp BP BP BP 06/07/22 07:29 06/07/22 07:13 124 H 06/07/22 04:53 120 H 93/58 L 06/07/22 03:07 36.8 C 108 H 16 99/66 L 06/07/22 01:36 119 H 10/08/22 23:51 137 H 06/06/22 23:48 137 H 97/62 L 06/06/22 23:11 36.8 C 111 H 24 106/70 06/06/22 22:00 06/06/22 22:00 37.2 C 109 H 20 106/70 06/06/22 21:53 102 H 16 111/62 06/06/22 21:20 110 H 20 06/06/22 21:15 91/71 L 06/06/22 21:15 106 H 19 06/06/22 21:10 136 H 18 06/06/22 21:00 123 H 20 06/06/22 21:00 103/68 06/06/22 20:50 129 H 17 06/06/22 20:45 112/82 06/06/22 20:45 148 H 20 Pulse Ox O2 Del Method O2 Flow Rate 06/07/22 07:29 Nasal Cannula 2 06/07/22 07:13 06/07/22 04:53 06/07/22 03:07 97 Nasal Cannula 3 06/07/22 01:36 06/06/22 23:51 06/06/22 23:48 06/06/22 23:11 95 Nasal Cannula 3 06/06/22 22:00 Nasal Cannula 3 06/06/22 22:00 93 Nasal Cannula 06/06/22 21:53 Nasal Cannula 3 06/06/22 21:20 06/06/22 21:15 06/06/22 21:15 93 06/06/22 21:10 95 06/06/22 21:00 93 06/06/22 21:00 06/06/22 20:50 92 06/06/22 20:45 06/06/22 20:45 94 Laboratory Results Laboratory Results - last 24 hr 06/06/22 06/06/22 06/06/22 15:14 15:14 15:14 WBC 11.18 H RBC 4.22 Hgb 13.8 Hct 39.3 MCV 93.1 MCH 32.7 MCHC 35.1 RDW Std Deviation 47.5 H RDW Coeff of [place] 13.9 Plt Count 430 H MPV 8.7 L Immature Gran % (Auto) 0.4 Neut % (Auto) 78.8 Lymph % (Auto) 10.2 [place] % (Auto) 9.6 Eos % (Auto) 0.4 Baso % (Auto) 0.6 Neut # (Auto) 8.81 H Lymph # (Auto) 1.14 L [place] # (Auto) 1.07 H Eos # (Auto) 0.04 Baso # (Auto) 0.07 Immature Gran # (Auto) 0.05 H Sodium 136 Potassium 3.8 Chloride 96 L Carbon Dioxide 31 Anion Gap 9 BUN 12 Creatinine 0.50 L Est Cr Clr Drug Dosing 110.0 Est GFR ( Amer) 116.1 Est GFR (Non-Af Amer) 100.2 BUN/Creatinine Ratio 24.0 H Glucose 94 Lactate Calcium 9.0 Magnesium Total Bilirubin 0.9 AST 8 L ALT 7 Alkaline Phosphatase 140 H Troponin I High Sens 4.2 Total Protein 6.8 Albumin 3.2 L Globulin 3.6 Albumin/Globulin Ratio 0.9 Lipase 24 Procalcitonin TSH Urine Color Urine Appearance Urine pH Ur Specific [place] Urine Protein Urine Glucose (UA) Urine Ketones Urine Blood Urine Nitrite Urine Bilirubin Urine Urobilinogen Ur Leukocyte Esterase Urine WBC (Auto) Urine RBC (Auto) U Hyaline Cast (Auto) U Epithel Cells (Auto) Urine Bacteria (Auto) Hepatitis C Ab (EIA) Hep C Ab Signal/Cutoff SARS-CoV-2, RNA, NAAT 06/06/22 06/06/22 06/06/22 15:14 15:14 16:46 WBC RBC Hgb Hct MCV MCH MCHC RDW Std Deviation RDW Coeff of [place] Plt Count MPV Immature Gran % (Auto) Neut % (Auto) Lymph % (Auto) [place] % (Auto) Eos % (Auto) Baso % (Auto) Neut # (Auto) Lymph # (Auto) [place] # (Auto) Eos # (Auto) Baso # (Auto) Immature Gran # (Auto) Sodium Potassium Chloride Carbon Dioxide Anion Gap BUN Creatinine Est Cr Clr Drug Dosing Est GFR ( Amer) Est GFR (Non-Af Amer) BUN/Creatinine Ratio Glucose Lactate Calcium Magnesium 1.8 Total Bilirubin AST ALT Alkaline Phosphatase Troponin I High Sens Total Protein Albumin Globulin Albumin/Globulin Ratio Lipase Procalcitonin < 0.05 TSH Urine Color Yellow Urine Appearance Clear Urine pH 5.5 Ur Specific [place] 1.012 Urine Protein Negative Urine Glucose (UA) Negative Urine Ketones Negative Urine Blood 2+ H Urine Nitrite Negative Urine Bilirubin Negative Urine Urobilinogen Negative Ur Leukocyte Esterase 1+ H Urine WBC (Auto) 1-5 Urine RBC (Auto) 5-10 H U Hyaline Cast (Auto) 0 U Epithel Cells (Auto) 10-20 H Urine Bacteria (Auto) Negative Hepatitis C Ab (EIA) Hep C Ab Signal/Cutoff SARS-CoV-2, RNA, NAAT 06/06/22 06/06/22 06/07/22 18:16 19:53 07:28 WBC 9.28 RBC 3.87 L Hgb 12.2 Hct 35.5 MCV 91.7 MCH 31.5 MCHC 34.4 RDW Std Deviation 47.9 H RDW Coeff of [place] 14.2 Plt Count 397 MPV 8.6 L Immature Gran % (Auto) 0.3 Neut % (Auto) 69.5 Lymph % (Auto) 14.1 [place] % (Auto) 12.3 Eos % (Auto) 2.9 Baso % (Auto) 0.9 Neut # (Auto) 6.45 Lymph # (Auto) 1.31 [place] # (Auto) 1.14 H Eos # (Auto) 0.27 Baso # (Auto) 0.08 Immature Gran # (Auto) 0.03 H Sodium Potassium Chloride Carbon Dioxide Anion Gap BUN Creatinine Est Cr Clr Drug Dosing Est GFR ( Amer) Est GFR (Non-Af Amer) BUN/Creatinine Ratio Glucose Lactate 0.9 Calcium Magnesium Total Bilirubin AST ALT Alkaline Phosphatase Troponin I High Sens Total Protein Albumin Globulin Albumin/Globulin Ratio Lipase Procalcitonin TSH Urine Color Urine Appearance Urine pH Ur Specific [place] Urine Protein Urine Glucose (UA) Urine Ketones Urine Blood Urine Nitrite Urine Bilirubin Urine Urobilinogen Ur Leukocyte Esterase Urine WBC (Auto) Urine RBC (Auto) U Hyaline Cast (Auto) U Epithel Cells (Auto) Urine Bacteria (Auto) Hepatitis C Ab (EIA) Hep C Ab Signal/Cutoff SARS-CoV-2, RNA, NAAT NEGATIVE 06/07/22 06/07/22 06/07/22 07:28 07:28 07:28 WBC RBC Hgb Hct MCV MCH MCHC RDW Std Deviation RDW Coeff of [place] Plt Count MPV Immature Gran % (Auto) Neut % (Auto) Lymph % (Auto) [place] % (Auto) Eos % (Auto) Baso % (Auto) Neut # (Auto) Lymph # (Auto) [place] # (Auto) Eos # (Auto) Baso # (Auto) Immature Gran # (Auto) Sodium 137 Potassium 4.0 Chloride 100 Carbon Dioxide 32 Anion Gap 5 BUN 11 Creatinine 0.44 L Est Cr Clr Drug Dosing 124.6 Est GFR ( Amer) 121.1 Est GFR (Non-Af Amer) 104.5 BUN/Creatinine Ratio 25.0 H Glucose 94 Lactate Calcium 8.4 L Magnesium Total Bilirubin AST ALT Alkaline Phosphatase Troponin I High Sens Total Protein Albumin Globulin Albumin/Globulin Ratio Lipase Procalcitonin TSH 1.886 Urine Color Urine Appearance Urine pH Ur Specific [place] Urine Protein Urine Glucose (UA) Urine Ketones Urine Blood Urine Nitrite Urine Bilirubin Urine Urobilinogen Ur Leukocyte Esterase Urine WBC (Auto) Urine RBC (Auto) U Hyaline Cast (Auto) U Epithel Cells (Auto) Urine Bacteria (Auto) Hepatitis C Ab (EIA) Pending Hep C Ab Signal/Cutoff Pending SARS-CoV-2, RNA, NAAT Diagnostic Findings Laboratory Results - last 24 hr 06/06/22 06/06/22 06/06/22 15:14 15:14 15:14 WBC 11.18 H RBC 4.22 Hgb 13.8 Hct 39.3 MCV 93.1 MCH 32.7 MCHC 35.1 RDW Std Deviation 47.5 H RDW Coeff of [place] 13.9 Plt Count 430 H MPV 8.7 L Immature Gran % (Auto) 0.4 Neut % (Auto) 78.8 Lymph % (Auto) 10.2 [place] % (Auto) 9.6 Eos % (Auto) 0.4 Baso % (Auto) 0.6 Neut # (Auto) 8.81 H Lymph # (Auto) 1.14 L [place] # (Auto) 1.07 H Eos # (Auto) 0.04 Baso # (Auto) 0.07 Immature Gran # (Auto) 0.05 H Sodium 136 Potassium 3.8 Chloride 96 L Carbon Dioxide 31 Anion Gap 9 BUN 12 Creatinine 0.50 L Est Cr Clr Drug Dosing 110.0 Est GFR ( Amer) 116.1 Est GFR (Non-Af Amer) 100.2 BUN/Creatinine Ratio 24.0 H Glucose 94 Lactate Calcium 9.0 Magnesium Total Bilirubin 0.9 AST 8 L ALT 7 Alkaline Phosphatase 140 H Troponin I High Sens 4.2 Total Protein 6.8 Albumin 3.2 L Globulin 3.6 Albumin/Globulin Ratio 0.9 Lipase 24 Procalcitonin TSH Urine Color Urine Appearance Urine pH Ur Specific [place] Urine Protein Urine Glucose (UA) Urine Ketones Urine Blood Urine Nitrite Urine Bilirubin Urine Urobilinogen Ur Leukocyte Esterase Urine WBC (Auto) Urine RBC (Auto) U Hyaline Cast (Auto) U Epithel Cells (Auto) Urine Bacteria (Auto) Hepatitis C Ab (EIA) Hep C Ab Signal/Cutoff SARS-CoV-2, RNA, NAAT 06/06/22 06/06/22 06/06/22 15:14 15:14 16:46 WBC RBC Hgb Hct MCV MCH MCHC RDW Std Deviation RDW Coeff of [place] Plt Count MPV Immature Gran % (Auto) Neut % (Auto) Lymph % (Auto) [place] % (Auto) Eos % (Auto) Baso % (Auto) Neut # (Auto) Lymph # (Auto) [place] # (Auto) Eos # (Auto) Baso # (Auto) Immature Gran # (Auto) Sodium Potassium Chloride Carbon Dioxide Anion Gap BUN Creatinine Est Cr Clr Drug Dosing Est GFR ( Amer) Est GFR (Non-Af Amer) BUN/Creatinine Ratio Glucose Lactate Calcium Magnesium 1.8 Total Bilirubin AST ALT Alkaline Phosphatase Troponin I High Sens Total Protein Albumin Globulin Albumin/Globulin Ratio Lipase Procalcitonin < 0.05 TSH Urine Color Yellow Urine Appearance Clear Urine pH 5.5 Ur Specific [place] 1.012 Urine Protein Negative Urine Glucose (UA) Negative Urine Ketones Negative Urine Blood 2+ H Urine Nitrite Negative Urine Bilirubin Negative Urine Urobilinogen Negative Ur Leukocyte Esterase 1+ H Urine WBC (Auto) 1-5 Urine RBC (Auto) 5-10 H U Hyaline Cast (Auto) 0 U Epithel Cells (Auto) 10-20 H Urine Bacteria (Auto) Negative Hepatitis C Ab (EIA) Hep C Ab Signal/Cutoff SARS-CoV-2, RNA, NAAT 06/06/22 06/06/22 06/07/22 18:16 19:53 07:28 WBC 9.28 RBC 3.87 L Hgb 12.2 Hct 35.5 MCV 91.7 MCH 31.5 MCHC 34.4 RDW Std Deviation 47.9 H RDW Coeff of [place] 14.2 Plt Count 397 MPV 8.6 L Immature Gran % (Auto) 0.3 Neut % (Auto) 69.5 Lymph % (Auto) 14.1 [place] % (Auto) 12.3 Eos % (Auto) 2.9 Baso % (Auto) 0.9 Neut # (Auto) 6.45 Lymph # (Auto) 1.31 [place] # (Auto) 1.14 H Eos # (Auto) 0.27 Baso # (Auto) 0.08 Immature Gran # (Auto) 0.03 H Sodium Potassium Chloride Carbon Dioxide Anion Gap BUN Creatinine Est Cr Clr Drug Dosing Est GFR ( Amer) Est GFR (Non-Af Amer) BUN/Creatinine Ratio Glucose Lactate 0.9 Calcium Magnesium Total Bilirubin AST ALT Alkaline Phosphatase Troponin I High Sens Total Protein Albumin Globulin Albumin/Globulin Ratio Lipase Procalcitonin TSH Urine Color Urine Appearance Urine pH Ur Specific [place] Urine Protein Urine Glucose (UA) Urine Ketones Urine Blood Urine Nitrite Urine Bilirubin Urine Urobilinogen Ur Leukocyte Esterase Urine WBC (Auto) Urine RBC (Auto) U Hyaline Cast (Auto) U Epithel Cells (Auto) Urine Bacteria (Auto) Hepatitis C Ab (EIA) Hep C Ab Signal/Cutoff SARS-CoV-2, RNA, NAAT NEGATIVE 06/07/22 06/07/22 06/07/22 07:28 07:28 07:28 WBC RBC Hgb Hct MCV MCH MCHC RDW Std Deviation RDW Coeff of [place] Plt Count MPV Immature Gran % (Auto) Neut % (Auto) Lymph % (Auto) [place] % (Auto) Eos % (Auto) Baso % (Auto) Neut # (Auto) Lymph # (Auto) [place] # (Auto) Eos # (Auto) Baso # (Auto) Immature Gran # (Auto) Sodium 137 Potassium 4.0 Chloride 100 Carbon Dioxide 32 Anion Gap 5 BUN 11 Creatinine 0.44 L Est Cr Clr Drug Dosing 124.6 Est GFR ( Amer) 121.1 Est GFR (Non-Af Amer) 104.5 BUN/Creatinine Ratio 25.0 H Glucose 94 Lactate Calcium 8.4 L Magnesium Total Bilirubin AST ALT Alkaline Phosphatase Troponin I High Sens Total Protein Albumin Globulin Albumin/Globulin Ratio Lipase Procalcitonin TSH 1.886 Urine Color Urine Appearance Urine pH Ur Specific [place] Urine Protein Urine Glucose (UA) Urine Ketones Urine Blood Urine Nitrite Urine Bilirubin Urine Urobilinogen Ur Leukocyte Esterase Urine WBC (Auto) Urine RBC (Auto) U Hyaline Cast (Auto) U Epithel Cells (Auto) Urine Bacteria (Auto) Hepatitis C Ab (EIA) Pending Hep C Ab Signal/Cutoff Pending SARS-CoV-2, RNA, NAAT Medications Administered Current Inpatient Medications Acetaminophen (Acetaminophen 325 Mg Tab) 650 mg PO Q4H PRN PRN Reason: pain Stop: 07/06/22 22:38 Al Hydrox/Mg Hydrox/Simethicone (Aluminum/Magnesium/Simeth (Maalox Max) 30 Ml Udc) 15 ml PO Q6H PRN PRN Reason: Dyspepsia Stop: 07/07/22 10:31 Amiodarone HCl (Amiodarone 200 Mg Tab) 200 mg PO BIDM [facility] Stop: 07/07/22 16:59 Apixaban (Apixaban 5 Mg Tablet) 5 mg PO BID [facility] Stop: 07/06/22 22:38 Last Admin: 06/07/22 08:31 Dose: 5 mg Colchicine (Colchicine 0.6 Mg Tab) 0.6 mg PO BID [facility] Stop: 07/07/22 08:59 Fluoxetine HCl ([facility]etine Hcl 20 Mg Cap) [facility] [place]: 07/07/22 08:59 Last Admin: 06/07/22 08:30 Dose: 40 mg Promethazine HCl 12.5 mg/ (Sodium Chloride) 50.5 mls @ 202 mls/hr IV Q6H PRN PRN Reason: Nausea And Vomiting Stop: 07/06/22 22:38 Lidocaine (Lidocaine 5% 1 Patch) 1 [facility] [place] Stop: 07/06/22 23:29 Last Admin: 06/06/22 23:51 Dose: 1 patch Miscellaneous (Remove Lidoderm Patch) 1 each N/A DAILY@2100 [facility] Stop: 07/07/22 20:59 Oxycodone HCl (Oxycodone Hcl Ir 5 Mg Tab (Immediate Release)) 5 mg PO Q4H PRN PRN Reason: Pain Stop: 06/20/22 22:38 Polyethylene Glycol (Polyethylene (Miralax) 17 Gm Pack) 17 gm PO DAILY PRN PRN Reason: Constipation Stop: 07/06/22 22:38 Potassium Chloride (Potassium Chloride Crtab 20 Meq Tabcr) 20 meq PO BIDM [facility] Stop: 07/07/22 07:59 Last Admin: 06/07/22 08:30 Dose: 20 meq Spironolactone (Spironolactone 12.5 Mg Tab) 12.5 mg PO DAILY [facility] Stop: 07/07/22 08:59 Last Admin: 06/07/22 08:30 Dose: 12.5 mg Trazodone HCl (Trazodone Hcl 100 Mg Tab) 100 mg PO [facility] Stop: 07/06/22 22:38 Last Admin: 06/06/22 23:21 Dose: 100 mg
--- NOTE | 2022-06-07 10:13 | Pulmonary Consultation ---
Date of Consultation June 07, 2022 Assessment & Plan (1) Pulmonary emboli: (2) Pleural effusion: (3) Acute hypoxemic respiratory failure: (4) SOB (shortness of breath): (5) Chest pain, pleuritic: Plan CT chest 06/06/22 personally reviewed: Moderate to large right-sided pleural effusion partially loculated, compression atelectasis of the right lower lobe Subsegmental pulmonary emboli left lower lobe Calcified granuloma left lower lobe Cardiomegaly No significant mediastinal lymphadenopathy Effusion seems to be getting worse compared to CT chest 05/26/2022 -- Right-sided pleural effusion Moderate to large Increased in size compared to CT chest done approximately 2 weeks ago Patient is currently on apixaban. Will need to be on hold for 48 hours prior to doing the procedure -- Pleuritic right-sided chest pain Procalcitonin has been negative Has been going on since January Denies any fever Would recommend continue with antibiotics I will order SOTO as well -- Compression atelectasis of the right lower lobe Hopeful it will improve with thoracentesis -- Pulmonary embolism Subsegmental left lower lobe, patient got her while on apixaban This could be considered failure of apixaban --COPD with active smoking Not on any inhalers right now Can consider adding Incruse Plan: Hold apixaban as of today. Thoracentesis can be considered later Wednesday or Wednesday morning Would recommend starting heparin drip around 6 PM without bolus Continue with antibiotics I will order SOTO as well to make sure there is no autoimmune process going on causing pleuritic chest pain Recommend Doppler bilateral lower extremity to make sure there is no DVT Continue with incentive spirometry Please note the above document was generated using voice recognition software. It may contain grammatical, syntax or spelling errors.Any formal questions or concerns about the content, text or information contained within the body of this dictation should be directly addressed to the provider for clarification. History of Present Illness Attending Physician: Alvaro Piper MD History of Present Illness 67-year-old female admitted to the hospital with complaints of chest pain and shortness of breath Past medical history: Sick sinus syndrome status post permanent pacemaker, hypertension, pulmonary embolism on apixaban Patient was found to have right-sided pleural effusion, pulmonary consulted for the same At the time of examination patient was saturating 91-92% on 2 L nasal cannula with heart rate of 100. She complained of chest pain on the right side whenever she took deep breaths. Has been having issues with right-sided chest pain for approximately 3 months has not significantly worsened Denies any headache, no nausea vomiting Denies any headache or blurry vision. No personal or family history of any autoimmune disease like lupus, sarcoid, Sjogren's, rheumatoid. Social history: [id number] smoking history, active smoker Allergies Allergy/AdvReac Type Severity Reaction Status Date / Time domiphen Allergy Severe tongue Verified 06/06/22 16:17 swelling cephalexin Allergy Intermediate RASH Verified 06/06/22 16:17 Cephalosporins Allergy Intermediate hives, Verified 06/06/22 16:17 itching Ceepryn Chloride Allergy Severe tongue Uncoded 06/06/22 16:17 swelling Home Medications Medication Instructions Recorded Confirmed Type fluoxetine 40 mg capsule (Prozac) 40 mg PO QAM 09/29/19 06/07/22 History polyethylene glycol 3350 17 gram 17 g PO DAILY 09/29/19 06/07/22 History oral powder packet (Miralax) trazodone 100 mg tablet 100 mg PO HS 09/29/19 06/07/22 History furosemide 20 mg tablet 20 mg PO DAILY 05/12/22 06/07/22 History spironolactone 25 mg tablet 12.5 mg PO DAILY 05/26/22 06/07/22 History (Aldactone) acetaminophen 325 mg tablet 650 mg PO Q4H PRN pain #30 tabs 05/28/22 06/07/22 Rx amiodarone 200 mg tablet 200 mg PO DIRECTED 06/06/22 06/07/22 History apixaban 5 mg tablet (Eliquis) 5 mg PO BID 06/06/22 06/07/22 History echinacea purpurea extract 125 mg 125 mg PO DAILY 06/06/22 06/07/22 History tablet (echinacea) oxycodone-acetaminophen 5 mg-325 1 tab PO DIRECTED PRN Pain 06/06/22 06/07/22 History mg tablet cyanocobalamin (vitamin B-12) 1,000 mcg PO DAILY 06/07/22 06/07/22 History 1,000 mcg tablet (Vitamin B-12) meclizine 12.5 mg tablet 12.5 mg PO TID PRN Dizziness 06/07/22 06/07/22 History vitamin K2 100 mcg capsule 100 mcg PO DAILY 06/07/22 06/07/22 History Patient History Medical History A-fib Acute diverticulitis Anxiety Depression Dyslipidemia GERD (gastroesophageal reflux disease) Pulmonary emboli Surgical History H/O section History of appendectomy History of bowel resection History of colostomy reversal History of hernia repair History of total hip arthroplasty History of total knee arthroplasty Hx of cholecystectomy Family History Mother , 76 Myocardial infarction Father , 76 Stroke Social History Smoking Status: Current every day smoker Tobacco Type: Cigarettes packs per day: 1; Years Smoked: 40; Cigarettes Per Day: 2-3; Hx Alcohol Use: Yes Alcohol type: wine Hx Substance Use: No Preferred Language: Stateless Director Of Rehabilitation Required: No Beliefs That Will Affect Care: None marital status: Current Living Situation: Spouse and Family Feels Safe at Home: Yes Safety Concerns: Feels Safe At This Time Assistive Devices: Denture - Upper and Denture - Lower Review of Systems Review of Systems: All systems reviewed & are unremarkable except as noted in Subjective Physical Exam Physical Exam: Constitutional: No acute distress HEENT: EOMI, PERRLA Respiratory system: Decreased air entry on the right side, no wheeze, rhonchi, positive crackles bilaterally CVS: S1-S2 positive, no murmurs or gallops, irregular Abdomen: Soft, nontender, nondistended, positive bowel sounds x4 Extremities: +2 pulses bilaterally radialis/ dorsalis pedis, no cyanosis, no edema Neuro: Awake alert oriented x3 Psych: Normal mood and affect G/U: No [place] Skin: no rashes, warm and dry Lymphatic: no cervical or axillary lymphadenopathy Results & Data Results & Data ([facility]) Vital Signs (Past 12 Hours) Vital Signs Temp Pulse Pulse Resp BP BP Pulse Ox 06/07/22 08:00 36.8 C 87 18 136/79 98 06/07/22 07:29 06/07/22 07:13 124 H 06/07/22 04:53 120 H 93/58 L 06/07/22 03:07 36.8 C 108 H 16 99/66 L 97 06/07/22 01:36 119 H 06/06/22 23:51 137 H 06/06/22 23:48 137 H 97/62 L 06/06/22 23:11 36.8 C 111 H 24 106/70 95 O2 Del Method O2 Flow Rate 06/07/22 08:00 06/07/22 07:29 Nasal Cannula 2 06/07/22 07:13 06/07/22 04:53 06/07/22 03:07 Nasal Cannula 3 06/07/22 01:36 06/06/22 23:51 06/06/22 23:48 06/06/22 23:11 Nasal Cannula 3 Laboratory Results 06/07/22 07:28 06/07/22 07:28 PG Care Time/CCT Total # of Minutes Spent Total Time Spent with Patient: Total time spent is greater than 50% in coordination of care (as documented) at patient's floor/unit and/or counseling patient: Coding Level of Care Code 56180 Initial Inpt Care Lvl 3 Diagnoses Pulmonary emboli I26.99 Pleural effusion J90 Acute hypoxemic respiratory failure J96.01 SOB (shortness of breath) R06.02 Chest pain, pleuritic R07.81
[2022-06-07] MEDS ORDERED: ALUMINUM/MAGNESIUM/SIMETH (MAALOX MAX) 30 ML UDC PO PRN (10:32)
[2022-06-07] MEDS: COLCHICINE 0.6 MG TAB PO SCH ×2 (11:11→20:55)
[2022-06-07] MEDS: METOPROLOL TARTRATE 25 MG TAB PO SCH ×2 (12:15→20:56)
[2022-06-07] MEDS ORDERED: FAMOTIDINE 10 MG TABLET PO PRN (12:39)
[2022-06-07] MEDS: DOXYCYCLINE HYCLATE 100 MG CAP PO SCH ×2 (13:12→20:55)
--- NOTE | 2022-06-07 13:48 | Hospitalist Progress Note ---
Date of Service June 07, 2022 Assessment & Plan (1) Acute hypoxemic respiratory failure: Plan: Acute hypoxic respiratory failure Multifactorial: Pleural, pericardial effusion, pulmonary emboli, A. fib RVR Left lower lobe segmental PE --CTA Chest:Several segmental pulmonary emboli within the left lower lobe, new since chest CT of May 26, 2022. Increase in size of a loculated large right pleural effusion. Partial compressive atelectasis of the right lower lobe. Small left pleural effusion. Increase in size of a small to moderate pericardial effusion. -- Eliquis will be transition to IV heparin for procedure --Received IV Lasix Continue Aldactone Monitor volume status, electrolytes Plan for thoracentesis as able Appreciate pulmonary input Venous Doppler pending SOTO, CRP, ESR pending Incentive spirometry Pericardial Effusion --ECHO: Left ventricle is normal size bilateral residual was normal. 60 to 65%. Right ventricle systolic was normal. Left atrium is moderately dilated. Right atrium size is normal. Moderate sized pericardial effusion. There is no echocardiographic indications of cardiac tamponade. --started on colchicine A. fib RVR Continue amiodarone, metoprolol Eliquis>> IV heparin for anticoagulation Monitor and replete electrolytes as needed Abdominal wound Infection H/O rectosigmoid resection due to diverticulitis per records -CT ABD pending Started on Doxycycline Continue Wound Care SSS S/P PPM H/O Atrial pacemaker lead displacement Had right atrial pacing lead revision on 06/02/22 On amiodarone, metoprolol Pacemaker interrogation today Hepatic lesions --Liver USD:No significant biliary ductal dilatation status post cholecystectomy. 1.6 cm hypoechoic left hepatic lobe lesion. Although probably benign, this is technically indeterminate although no suspicious hepatic lesions were shown on recent abdominal CT of May 26, 2022. Multiple additional hepatic lesions reflect cysts. --CT ABD pending -- Needs repeat imaging in 6 months and follow-up as outpatient Suspected PAULINO Sleep study as outpatient HTN BP relatively low Continue current medications Monitor H/O Fibromyalgia ongoing tobacco abuse Continue home medications Counseled to quit smoking DVT Px: Was on Eliquis IV Heparin as able Code Status Full code Admission and Anticipated Discharge Date Admission Date: June 06, 2022 Subjective Patient is seen and examined at bedside Reports pleuritic pain, intermittent nausea, dizziness Also reports dyspnea, heart burn Discussed with cardiology today Saturating low 90s on 2 L supplemental oxygen Review of Systems Review of Systems: All systems reviewed & are unremarkable except as noted in Subjective Physical Exam Physical Exam: Physical Exam: Vitals signs as noted above General Appearance:Moderately built and nourished, ill-appearing, mild distress Head: normocephalic, Atraumatic Eyes: normal inspection, EOMI Neck: supple, Trachea midline Respiratory/Chest: Decreased breath sounds, CTA, No accessory muscle use, + pacemaker Cardiovascular: Irregularly irregular, No murmur Abdomen/GI:Soft, mild tender, + abdominal incisional wound ,bowel sounds present Extremities/Musculoskeletal:normal inspection, Trace edema Neurologic/Psych:AAOX3, grossly no focal neurological deficits Skin: normal color, warm Results & Data Results & Data ([facility]) Vital Signs (Past 12 Hours) Vital Signs Temp Pulse Pulse Resp BP Pulse Ox O2 Del Method 06/07/22 10:28 102 H 19 102/64 93 Room Air 06/07/22 08:00 36.8 C 87 18 136/79 98 06/07/22 07:29 Nasal Cannula 06/07/22 07:13 124 H 06/07/22 04:53 120 H 93/58 L 06/07/22 03:07 36.8 C 108 H 16 99/66 L 97 Nasal Cannula O2 Flow Rate 06/07/22 10:28 2 06/07/22 08:00 06/07/22 07:29 2 06/07/22 07:13 06/07/22 04:53 06/07/22 03:07 3 Laboratory Results Short CBC 06/06/22 06/07/22 Range/Units 15:14 07:28 WBC 11.18 H 9.28 (4.8-10.8) K/ul Hgb 13.8 12.2 (12.0-16.0) g/dl Hct 39.3 35.5 (34.1-44.9) % Plt Count 430 H 397 (130-400) K/uL BMP 06/06/22 06/07/22 15:14 07:28 Sodium 136 137 Potassium 3.8 4.0 Chloride 96 L 100 Carbon Dioxide 31 32 BUN 12 11 Creatinine 0.50 L 0.44 L Glucose 94 94 Calcium 9.0 8.4 L Liver Function 06/06/22 Range/Units 15:14 Total Bilirubin 0.9 (0.2-1.0) mg/dl AST 8 L (13-39) U/L ALT 7 (7-52) U/L Alkaline Phosphatase 140 H (34-104) U/L Albumin 3.2 L (3.4-5.0) gm/dl Urine 06/06/22 Range/Units 16:46 Urine Color Yellow Urine Appearance Clear (Clear) Urine pH 5.5 (4.5-7.5) Ur Specific [place] 1.012 (1.000-1.030) Urine Protein Negative (Negative) Urine Glucose (UA) Negative (Negative)
--- NOTE | 2022-06-07 14:52 | CT Scan Report ---
ABDOMEN AND PELVIS CT WITHOUT CONTRAST CT DOSE: 677.38 mGy.cm HISTORY: Acute generalized abdominal pain Abdominal Incisional wound infection, abd pain TECHNIQUE: Multiaxial CT images of the abdomen and pelvis were performed without contrast. A dose lo wering technique was utilized adhering to the principles of ALARA. COMPARISON STUDY: CTA chest 06/06/2022, CT abdomen and pelvis 05/26/2022 FINDINGS: Loculated large right pleural effusion with right basilar consolidation redemonstrated. Sma ll left pleural effusion with left basilar consolidation favoring atelectasis. Mild groundglass densi ties of the lung bases. Partially imaged pacer leads. Moderate sized pericardial effusion with nonspe cific stranding within the right cardiophrenic fat. No pneumatosis or pneumoperitoneum. The unenhanced spleen, moderately atrophic pancreas and adrenal g lands appear unremarkable. Cholecystectomy with likely postsurgical intrahepatic and extrahepatic tutu iary ductal dilation, similar to prior. Numerous hepatic cysts are redemonstrated measuring up to 4 c m. Hepatomegaly. 4 mm nonobstructing calculus of the superior pole right kidney. 7 mm nonobstructing calculus of the i nferior pole left kidney. There are a few cysts of the bilateral kidneys measuring up to 1.7 cm. No u reteral calculi or hydronephrosis identified. Urinary bladder wall thickening with partial distention . Contrast noted within the dependent urinary bladder. The pelvic structures are suboptimally visuali zed secondary to streak artifact from left hip arthroplasty. Pelvic basin phleboliths. Atherosclerosi s of the abdominal aorta without aneurysm. No lymphadenopathy identified . Retroaortic left renal vei n. Mild nonspecific distal esophageal wall thickening. No bowel obstruction or bowel wall thickening. Co lonic diverticulosis. Moderate colonic fecal retention. The appendix is not visualized. There are 2 s ubcentimeter nodular foci versus loculated fluid within the mesentery adjacent to the distal stomach on image 243. Trace perihepatic ascites. Mild diastases recti with scarring of the lower anterior abd ominal/pelvic wall. Degenerative changes of the spine and right hip. Left hip total joint arthroplast y. IMPRESSION: 1. No acute intra-abdominal or intrapelvic abnormality. 2. No bowel obstruction or bowel wall thickening. 3. Moderate fecal retention with colonic diverticulosis. 4. Right greater than left pleural effusions with right basilar consolidation is similar to the CTA c hest from 06/06/2022. 5. Diastases recti with scarring of the lower anterior abdominal wall. 6. Nonobstructing bilateral nephrolithiasis. 7. Additional findings as above. ACT 112: Negative or not required by law. The above report was generated using voice recognition software. It may contain grammatical, syntax o r spelling errors. Electronically signed by: Vern Wolfe M.D. 06/07/2022 2:50 PM
[2022-06-07] MEDS: oxyCODONE HCL IR 5 MG TAB (IMMEDIATE RELEASE) PO PRN (16:02)
--- NOTE | 2022-06-07 16:06 | Ultrasound Report ---
BILATERAL LOWER EXTREMITY VENOUS DOPPLER HISTORY: Screening study in a patient with pulmonary embolus PE, Rule out DVT COMPARISON STUDY: CTA chest of same day, Doppler study 05/26/2022. FINDINGS: There is normal compressibility, flow, and augmentation within the bilateral lower extremit y deep venous systems. IMPRESSION: No DVT within the right or left lower extremity. ACT 112: Negative or not required by law. Electronically signed by: Vern Wolfe M.D. 06/07/2022 4:05 PM
[2022-06-07] MEDS: AMIODARONE 200 MG TAB PO SCH (16:57)
[2022-06-07] MEDS ORDERED: Heparin IV Adult Wt-Based Standard *NO* Bolus Protocol IV ONE (18:30)
[2022-06-07 19:58] LABS: Partial Thromboplastin Time 27.3 Seconds (21.0-31.0)
[2022-06-07] MEDS: HEPARIN SODIUM/DEXTROSE 25,000 UNITS/500 ML BAG IV SCH (20:42)
[2022-06-07] MEDS: DOCUSATE SODIUM 100 MG CAP PO SCH (20:55)
[2022-06-07] MEDS: traZODone HCL 100 MG TAB PO SCH (20:57)
[2022-06-08 03:26] LABS: Partial Thromboplastin Ratio 1.3
[2022-06-08] MEDS ORDERED: HEPARIN SOD (PORCINE) 1000 UNIT/ML IV ONE (03:45)
[2022-06-08] MEDS: oxyCODONE HCL IR 5 MG TAB (IMMEDIATE RELEASE) PO PRN ×2 (04:19→15:40)
--- NOTE | 2022-06-08 05:39 | Electrocardiogram Report ---
Test Reason : Blood Pressure : / mmHG Vent. Rate : 146 BPM Atrial Rate : 178 BPM P-R Int : 000 ms QRS Dur : 094 ms QT Int : 260 ms P-R-T Axes : 000 104 -82 degrees QTc Int : 405 ms Atrial fibrillation with rapid ventricular response Rightward axis Abnormal ECG When compared with ECG of 06-JUN-2022 15:20, Atrial fibrillation has replaced Sinus rhythm Vent. rate has increased by 75 bpm T wave inversion now evident in Inferior leads Confirmed by Joel Garcia ([id number]) on 06/08/2022 5:39:31 AM Referred By: REFERRED SELF Confirmed By:Joel Garcia
--- NOTE | 2022-06-08 05:53 | Electrocardiogram Report ---
Test Reason : Blood Pressure : / mmHG Vent. Rate : 115 BPM Atrial Rate : 147 BPM P-R Int : 000 ms QRS Dur : 084 ms QT Int : 324 ms P-R-T Axes : 000 088 265 degrees QTc Int : 448 ms Atrial fibrillation with rapid ventricular response with premature ventricular or aberrantly conducte d complexes Low voltage QRS T wave abnormality, consider inferior ischemia T wave abnormality, consider anterolateral ischemia Abnormal ECG When compared with ECG of 06-JUN-2022 19:35, No significant change was found Confirmed by Joel Garcia ([id number]) on 06/08/2022 5:53:10 AM Referred By: REFERRED SELF Confirmed By:Joel Garcia
[2022-06-08] MEDS: METOPROLOL TARTRATE 25 MG TAB PO SCH ×2 (08:44→21:12)
[2022-06-08] MEDS: FLUoxetine HCL 20 MG CAP PO SCH (08:44)
[2022-06-08] MEDS: DOCUSATE SODIUM 100 MG CAP PO SCH ×2 (08:44→21:11)
[2022-06-08] MEDS: SPIRONOLACTONE 12.5 MG TAB PO SCH (08:44)
[2022-06-08] MEDS: DOXYCYCLINE HYCLATE 100 MG CAP PO SCH ×2 (08:44→21:11)
[2022-06-08] MEDS: COLCHICINE 0.6 MG TAB PO SCH ×2 (08:45→21:10)
[2022-06-08] MEDS: AMIODARONE 200 MG TAB PO SCH ×2 (08:45→16:47)
[2022-06-08] MEDS: POTASSIUM CHLORIDE CRTAB 20 MEQ TABCR PO SCH ×2 (08:45→16:46)
[2022-06-08] MEDS: LIDOCAINE 5% 1 PATCH TD SCH (08:46)
[2022-06-08 10:07] LABS: BUN Creatinine Ratio 35.6 (10-20); C Reactive Protein 16.66 mg/dl (0-0.5); Calcium 8.9 mg/dl (8.5-10.1); Creatinine Clr Calc Pharmacy 121.2 ml/min; Est GFR (African American) 120.2 ml/min; Est GFR (Non-African American) 103.7 ml/min; Hematocrit (blood only) 36.9 % (34.1-44.9); Hemoglobin 12.3 g/dl (12.0-16.0); Magnesium 1.9 mg/dl (1.7-2.4); Mean Corpuscular Hgb Conc 33.3 g/dL (32.0-36.0); Mean Corpuscular Volume 92.9 fL (80.0-100.0); Mean Platelet Volume 8.7 fL (9.4-12.3); Platelet Count 425 K/uL (130-400); Potassium 3.9 mmol/L (3.5-5.1); RDW Coefficient of Variation 14.1 % (11.5-14.5); RDW Standard Deviation 48.3 fL (36.4-46.3); Red Blood Count 3.97 M/uL (3.93-5.22); White Blood Count 8.29 K/ul (4.8-10.8)
[2022-06-08 10:19] LABS: Partial Thromboplastin Ratio 1.8
[2022-06-08 10:23] LABS: Partial Thromboplastin Time 50.8 Seconds (21.0-31.0)
--- NOTE | 2022-06-08 12:14 | Pulmonology Progress Note ---
Date of Service June 08, 2022 Assessment & Plan (1) Pulmonary emboli: (2) Pleural effusion: (3) Acute hypoxemic respiratory failure: (4) SOB (shortness of breath): (5) Chest pain, pleuritic: Plan Impression: 67-year-old female with history of tobacco abuse with pleural effusion and pericardial effusion as well as subsegmental hemodynamically insignificant pulmonary emboli. Recommendations: 1. Pleural effusion: Patient's last dose of apixaban was about 24 hours ago. We will plan on thoracentesis versus pigtail catheter placement tomorrow. Heparin will be placed on hold at 5 a.m. Additional recommendations will be based on fluid characterization. 2. Pulmonary embolism: Continue heparin. Will be paused at 5 AM tomorrow for pleural procedures. Will likely need at least 6 months of anticoagulation. Would recommend hematology evaluation in the outpatient setting for evaluation of thrombophilia at the 6-month timeframe. 3. COPD: Outpatient PFTs recommended. Patient is not bronchospastic currently. No indication for inhalers antibiotics or steroids 4. Tobacco abuse: Smoking cessation recommended. Admission and Anticipated Discharge Date Admission Date: June 06, 2022 Subjective Patient seen and examined. My review. 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 The patient states that she feels well. She is not experiencing any shortness of breath. No chest pain or palpitations. No significant cough or sputum production. She is anticoagulated on heparin. She denies any syncope or presyncope. No significant lower extremity edema. Review of Systems Review of Systems: All systems reviewed & are unremarkable except as noted in Subjective Physical Exam Constitutional: WD/WN, vitals as above Neck: trachea midline, no thyromegaly Respiratory: normal respiratory effort; no respiratory distress, no labored breathing and not tachypneic Diminished breath sounds at the bilateral bases. Cardiovascular: RRR, no murmur, no edema Gastrointestinal (Abdomen): normal bowel sounds, soft, nontender, no h epatosplenomegaly Musculoskeletal: Extremities: extremities normal to inspection Skin: no rashes, warm and dry Neurologic: Nonfocal exam Lymphatic: no cervical lymphadenopathy Results & Data Results & Data ([facility]) Vital Signs (Past 12 Hours) Vital Signs Temp Pulse Pulse Resp BP Pulse Ox O2 Del Method 06/08/22 11:11 36.7 C 59 L 18 94/60 L 94 Nasal Cannula 06/08/22 07:21 Nasal Cannula 06/08/22 07:31 36.7 C 56 L 18 105/66 95 Nasal Cannula 06/08/22 07:05 60 06/08/22 03:00 36.9 C 62 20 112/71 90 Nasal Cannula 06/08/22 00:33 60 O2 Flow Rate 06/08/22 11:11 2 06/08/22 07:21 3 06/08/22 07:31 2 06/08/22 07:05 06/08/22 03:00 2 06/08/22 00:33 Laboratory Results 06/08/22 09:18 06/08/22 09:18 Serological evaluation pending Diagnostic Findings No new films PG Care Time/CCT Total # of Minutes Spent Total Time Spent with Patient: Total time spent is greater than 50% in coordination of care (as documented) at patient's floor/unit and/or counseling patient: Coding Level of Care Code 59963 Subseq Hosp Care Lvl 3 Diagnoses Pulmonary emboli I26.99 Pleural effusion J90 Acute hypoxemic respiratory failure J96.01 SOB (shortness of breath) R06.02 Chest pain, pleuritic R07.81
--- NOTE | 2022-06-08 12:15 | Cardiology Progress Note ---
Date of Service June 08, 2022 Assessment & Plan (1) Acute hypoxemic respiratory failure: (2) SOB (shortness of breath): (3) Atrial fibrillation with RVR: (4) Atrial pacemaker lead displacement: (5) Chest pain, pleuritic: (6) Pleural effusion: (7) Pulmonary emboli: (8) Pericardial effusion: Plan Continue low dose metoprolol and oral amiodarone Pacemaker interrogation by [employer] tax compliance representative, RE: Right atrial lead Continue Colchicine Patient requires anticoagulation for the PE's though I am concerned with said use, RE: pericardial effusion. Limited echo in AM Maintain telemetry Admission and Anticipated Discharge Date Admission Date: June 06, 2022 Supervising Physician Co-Signing Physician Notes I have previously seen this patient. I reviewed the case with Mr. De Oliveira today. I agree with the plan as outlined above. Subjective Patient seen and examined. Chart, medications, and telemetry reviewed. Feeling some better. Notes pain is controlled at present. Able to lay nearly flat, without cough, chest pain, dyspnea, or orthopnea. No palpitations. Telemetry: Atrial paced rhythm. Patient status post 05/12/2022 dual chamber pacemaker implantation for Sick Sinus Syndrome by Dr. Sherwood at [facility]. Called 05/14/2022 with moderate left subclavian pacemaker pocket pain, tightness, shortness of breath, body aches. 05/19/2022 wound check appointment and device interrogation with atrial lead in high output mode, unable to obtain threshold. CXR looked OK at [facility]. May 22, 2022 TTE Interpretation Summary (as per Dr. Rhoades): Limited study was performed without color-flow pulse-wave Doppler. No pericardial effusion is noted. Right atrial pacemaker lead appears mobile. Right ventricular pacemaker lead tip may be seen in full-thickness of interventricular septum. The left ventricular cavity size is normal. The septal motion is abnormal consistent with right ventricular pacemaker. The regional left ventricular wall motion is otherwise normal. Hospitalized at [facility] 05/26/2022 to 05/28/2022, presenting with shortness of breath and pleuritic pain. Examination without heart failure. CTA of the chest showed no PE, small left and moderate right side pleural effusions, possible pulmonary edema, small pericardial effusion. Venous duplex on 05/26/2022 showed no evidence of DVT in either lower extremity. Atrial arrhythmias noted on telemetry. Status post 05/27/2022 atrial lead repositioning by Dr. Sherwood. Atrial arrhythmias felt to be secondary to highly mobile right atrial lead with cardiac irritation, without further arrhythmias following lead revision. Evaluated by PCP on June 02, 2022, with ongoing chest pain aggravated by move ment, worse with inspiration, associated shortness of breath, and palpitations. EKG revealed atrial fibrillation with rapid ventricular response (151 bpm) with premature ventricular or aberrantly conducted complexes, rightward axis, STT wave abnormality suggestive of ischemia. Case discussed with Drs. Sherwood. Amiodarone 200 mg 3 times per day x2 weeks then 200 mg/day prescribed along with Eliquis anticoagulation, 5 mg twice per day Patient presented to the [facility] ER on 06/06/2022 with worsening symptoms. Work-up revealed several segmental pulmonary emboli within the left lower lobe, right g reater than left pleural effusions, atrial fibrillation with a rapid ventricular response, and ? acute decompensated heart failure. Pleuritic chest pain aided by lidocaine patch. Repeat duplex was negative for DVT on June 07, 2022. EKG on June 07, 2022 revealed atrial fibrillation with a ventricular rate of 115 bpm, low voltage QRS, diffuse T wave changes. QTC 448 ms. Resting echocardiography on June 07, 2022 revealed a moderate pericardial effusion without echocardiographic indications of cardiac tamponade. Patient evaluated by pulmonary medicine who recommended holding Eliquis ant icoagulation, utilizing heparin, referral for thoracentesis on Wednesday or Wednesday. Review of the patient's continuous telemetry monitoring this morning reveals a predominantly atrial paced rhythm overnight Remote device interrogation on June 06, 2022 at 23:15:57 notable for programmed atrial amplitude of 8 V Review of Systems Review of Systems: Complete Review of Systems is as stated above, negative, or noncontributory Physical Exam Physical Exam: General: A&Ox3. NAD. HENT: Normocephalic. Atraumatic. Eyes: PER. Conjunctiva pink, sclera clear. [place]: Carotid bruits. JVD. Heart: RRR. No rub. PMI is nondisplaced. Lungs: Absent breath sounds 1/2 up on the right, 1/4 up on the left. No wheeze. Abdomen: +BS. Soft. Nontender. No masses or organomegaly. Extremities: No clubbing, cyanosis, or edema. Limited neurological examination is without focal deficits. Pulses: radial=2/4, posterior tibial=1/4. Results & Data ([facility]) Vital Signs (Past 12 Hours) Vital Signs Temp Pulse Pulse Resp BP Pulse Ox O2 Del Method 06/08/22 11:11 36.7 C 59 L 18 94/60 L 94 Nasal Cannula 06/08/22 07:21 Nasal Cannula 06/08/22 07:31 36.7 C 56 L 18 105/66 95 Nasal Cannula 06/08/22 07:05 60 06/08/22 03:00 36.9 C 62 20 112/71 90 Nasal Cannula 06/08/22 00:33 60 O2 Flow Rate 06/08/22 11:11 2 06/08/22 07:21 3 06/08/22 07:31 2 06/08/22 07:05 06/08/22 03:00 2 06/08/22 00:33 Laboratory Results Coagulation 06/07/22 06/08/22 06/08/22 Range/Units 19:28 02:53 09:18 APTT 27.3 37.0 H 50.8 H* (21.0-31.0) Seconds CBC 06/08/22 Range/Units 09:18 WBC 8.29 (4.8-10.8) K/ul RBC 3.97 (3.93-5.22) M/uL Hgb 12.3 (12.0-16.0) g/dl Hct 36.9 (34.1-44.9) % Plt Count 425 H (130-400) K/uL Comprehensive Metabolic Panel 06/08/22 Range/Units 09:18 Sodium 138 (136-145) mmol/L Potassium 3.9 (3.5-5.1) mmol/L Chloride 100 (98-107) mmol/L Carbon Dioxide 34 H (21-32) mmol/L BUN 16 (6-23) mg/dl Creatinine 0.45 L (0.6-1.2) mg/dl Glucose 106 H (70-99(Fasting)) mg/dl Calcium 8.9 (8.5-10.1) mg/dl Intake and Output 06/07/22 06/08/22 06/08/22 22:59 06:59 14:59 Intake Total 243.016 / 543.016 116.133 / 116.133 Output Total 1000 / 1550 Balance -756.984 / -1006.984 116.133 / 116.133 Intake: IV 243.016 / 293.016 116.133 / 116.133 Heparin Sodium/Dextrose 25,000 243.016 / 243.016 116.133 / 116.133 units In 500 ml @ 1,300 UNITS/ HR 26 mls/hr IV .[id number] BROOKE Rx #:[id number] Output: Urine Amount (Catheter) 1000 / 1000 External 1000 / 1000 Other: Weight 79.6 kg Weight Measurement Method Built in [facility] Diagnostic Findings May 11, 2022 TTE Interpretation Summary (as per Dr. Baxter): Normal LV chamber size and wall thickness. Normal LV systolic function without regional wall motion abnormalities. Calculated LV ejection Fraction = 55% (bi-plane method of discs). Normal diastolic function. Mild mitral regurgitation. Borderline pulmonary hypertension. The estimated pulmonary artery systolic pressure is 40mm Hg.
[2022-06-08] MEDS: HEPARIN SODIUM/DEXTROSE 25,000 UNITS/500 ML BAG IV SCH (15:40)
--- NOTE | 2022-06-08 17:17 | Hospitalist Progress Note ---
Date of Service June 08, 2022 Assessment & Plan (1) Acute hypoxemic respiratory failure: Plan: Acute hypoxic respiratory failure Multifactorial: Pleural, pericardial effusion, pulmonary emboli, A. fib RVR Left lower lobe segmental PE --CTA Chest:Several segmental pulmonary emboli within the left lower lobe, new since chest CT of May 26, 2022. Increase in size of a loculated large right pleural effusion. Partial compressive atelectasis of the right lower lobe. Small left pleural effusion. Increase in size of a small to moderate pericardial effusion. --Venous Doppler: ESR:72 CRP:16.6 Immunological work-up pending -- Eliquis will be transition to IV heparin for procedure --Received IV Lasix Continue Aldactone Monitor volume status, electrolytes Appreciate pulmonary input Incentive spirometry Saturating low 90s on 2 L supplemental oxygen Likely to have thoracentesis Vs pigtail catheter placement tomorrow Plan to hold IV heparin on 06/09/2022 at 5 AM for procedure Pericardial Effusion --ECHO: Left ventricle is normal size bilateral residual was normal. 60 to 65%. Right ventricle systolic was normal. Left atrium is moderately dilated. Right atrium size is normal. Moderate sized pericardial effusion. There is no echocardiographic indications of cardiac tamponade. --started on colchicine Repeat limited echo pending A. fib RVR Continue amiodarone, metoprolol Eliquis>> IV heparin for anticoagulation Monitor and replete electrolytes as needed Converted to sinus Abdominal wound Infection H/O rectosigmoid resection due to diverticulitis per records -CT ABD: No acute intra-abdominal or intrapelvic abnormality. No bowel obstruction or bowel wall thickening. Moderate fecal retention with colonic diverticulosis.Diastases recti with scarring of the lower anterior abdominal wall. Nonobstructing bilateral nephrolithiasis. Continue Doxycycline Continue Wound Care SSS S/P PPM H/O Atrial pacemaker lead displacement Had right atrial pacing lead revision on 06/02/22 On amiodarone, metoprolol Pacemaker interrogation requested Hepatic lesions --Liver USD:No significant biliary ductal dilatation status post cholecystectomy. 1.6 cm hypoechoic left hepatic lobe lesion. Although probably benign, this is technically indeterminate although no suspicious hepatic lesions were shown on recent abdominal CT of May 26, 2022. Multiple additional hepatic lesions reflect cysts. --CT ABD pending -- Needs repeat imaging in 6 months and follow-up as outpatient Suspected PAULINO Sleep study as outpatient HTN BP relatively low Continue current medications Monitor H/O Fibromyalgia ongoing tobacco abuse Continue home medications Counseled to quit smoking DVT Px: Was on Eliquis IV Heparin Code Status Full code Admission and Anticipated Discharge Date Admission Date: June 06, 2022 Subjective Patient is seen and examined at bedside States feeling tired but better when compared to yesterday Denies any chest pain, abdominal pain, dyspnea today Currently in sinus this morning Saturating low 90s on 2 L supplemental oxygen Review of Systems Review of Systems: All systems reviewed & are unremarkable except as noted in Subjective Physical Exam Physical Exam: Physical Exam: Vitals signs as noted above General Appearance:Moderately built and nourished, ill-appearing, mild distress Head: normocephalic, Atraumatic Eyes: normal inspection, EOMI Neck: supple, Trachea midline Respiratory/Chest: Decreased breath sounds, CTA, No accessory muscle use, + pacemaker Cardiovascular: S1, S2, No murmur Abdomen/GI:Soft, mild tender, + abdominal incisional wound ,bowel sounds present Extremities/Musculoskeletal:normal inspection, Trace edema Neurologic/Psych:AAOX3, grossly no focal neurological deficits Skin: normal color, warm Results & Data Results & Data ([facility]) Vital Signs (Past 12 Hours) Vital Signs Temp Pulse Pulse Resp BP Pulse Ox O2 Del Method 06/08/22 16:33 36.8 C 59 L 18 107/64 94 Nasal Cannula 06/08/22 11:11 36.7 C 59 L 18 94/60 L 94 Nasal Cannula 06/08/22 07:21 Nasal Cannula 06/08/22 07:31 36.7 C 56 L 18 105/66 95 Nasal Cannula 06/08/22 07:05 60 O2 Flow Rate 06/08/22 16:33 2 06/08/22 11:11 2 06/08/22 07:21 3 06/08/22 07:31 2 06/08/22 07:05 Laboratory Results Short CBC 06/08/22 Range/Units 09:18 WBC 8.29 (4.8-10.8) K/ul Hgb 12.3 (12.0-16.0) g/dl Hct 36.9 (34.1-44.9) % Plt Count 425 H (130-400) K/uL BMP 06/08/22 09:18 Sodium 138 Potassium 3.9 Chloride 100 Carbon Dioxide 34 H BUN 16 Creatinine 0.45 L Glucose 106 H Calcium 8.9
[2022-06-08] MEDS: traZODone HCL 100 MG TAB PO SCH (21:12)
--- NOTE | 2022-06-09 03:07 | Communication Note ---
Date of Service: June 09, 2022 Patient with heartburn symptoms uncontrolled by Pepcid as needed. AP GERD Possibly from Doxycycline Rx Pepcid twice daily while on Doxycycline. Give Doxycycline with food and a glass of water. Maintain upright position 30 minutes after Doxycycline intake. Initiate PPI if if with refractory symptoms.
[2022-06-09] MEDS ORDERED: PANTOprazole 40 MG TAB PO SCH (03:10)
[2022-06-09] MEDS ORDERED: FAMOTIDINE 20 MG in SYRINGE 3 ML IV ONE (03:15)
[2022-06-09] MEDS ORDERED: NITROGLYCERIN SL 0.4 MG/TAB TAB SL STA (03:17)
[2022-06-09] MEDS ORDERED: NITROGLYCERIN SL 0.4 MG/TAB TAB ONE (03:23)
[2022-06-09] MEDS: oxyCODONE HCL IR 5 MG TAB (IMMEDIATE RELEASE) PO PRN ×3 (03:40→20:36)
[2022-06-09 04:40] LABS: Basophils # (auto) 0.06 K/uL (0-0.2); Basophils % (auto) 0.6 %; Eosinophils # (auto) 0.25 K/uL (0-0.50); Eosinophils % (auto) 2.7 %; Hematocrit (blood only) 36.4 % (34.1-44.9); Hemoglobin 12.3 g/dl (12.0-16.0); Immature Granulocytes # (auto) 0.02 K/uL (0.00-0.02); Immature Granulocytes % (auto) 0.2 %; Lymphocytes # (auto) 1.14 K/uL (1.2-3.4); Lymphocytes % (auto) 12.3 %; Mean Corpuscular Hemoglobin 31.8 pg (25.0-34.0); Mean Corpuscular Hgb Conc 33.8 g/dL (32.0-36.0); Mean Corpuscular Volume 94.1 fL (80.0-100.0); Mean Platelet Volume 8.6 fL (9.4-12.3); Monocytes # (auto) 0.83 K/uL (0.24-0.82); Neutrophils # (auto) 6.94 K/uL (1.4-6.5); Neutrophils % (auto) 75.2 %; Platelet Count 403 K/uL (130-400); RDW Coefficient of Variation 13.7 % (11.5-14.5); RDW Standard Deviation 47.3 fL (36.4-46.3); Red Blood Count 3.87 M/uL (3.93-5.22); White Blood Count 9.24 K/ul (4.8-10.8)
[2022-06-09 04:40] LABS: Base Excess ABG 8.1 mEq/L (-9-1.8); HCO3 ABG 33 mmol/L (19-24); Oxygen Saturation ABG 99.4 % (90-95); PCO2 ABG 48 mmHg (35-46); PO2 ABG 93 mmHg (80-95); pH ABG 7.45 (7.35-7.45)
[2022-06-09 04:42] LABS: Allen Test Pos (Pos)
[2022-06-09 04:55] LABS: Partial Thromboplastin Ratio 1.4; Partial Thromboplastin Time 37.6 Seconds (21.0-31.0)
[2022-06-09 05:03] LABS: Calcium 8.8 mg/dl (8.5-10.1); Est GFR (African American) 123.9 ml/min; Est GFR (Non-African American) 106.9 ml/min; Magnesium 1.7 mg/dl (1.7-2.4)
[2022-06-09 05:09] LABS: Troponin I High Sensitivity 3.5 pg/ml (0-14)
--- NOTE | 2022-06-09 08:09 | XRay Report ---
XR chest 1V portable HISTORY: Shortness of breath. COMPARISON: Chest 06/07/2022. FINDINGS: No pneumothorax. There is a left-sided dual-chamber pacemaker. The heart is normal in size. Mild left basilar interstitial thickening persists. Moderate to large right pleural effusion has sli ghtly increased in size. IMPRESSION: Slight increase in size in the moderate to large right pleural effusion. ACT 112: Negative or not required by law. Electronically signed by: Sukumar Acuña M.D. 06/09/2022 8:08 AM
[2022-06-09 08:20] LABS: Folate (Folic Acid) 6.89 ng/ml (>5.38)
[2022-06-09 08:21] LABS: Vitamin B12 > 1500 pg/ml (180-914)
--- NOTE | 2022-06-09 08:27 | Pulmonology Progress Note ---
Date of Service June 09, 2022 Assessment & Plan (1) Pulmonary emboli: (2) Pleural effusion: (3) Acute hypoxemic respiratory failure: (4) SOB (shortness of breath): (5) Chest pain, pleuritic: Plan Impression: 67-year-old female with history of tobacco abuse with pleural effusion and pericardial effusion as well as subsegmental hemodynamically insignificant pulmonary emboli. Recommendations: 1. Pleural effusion: Heparin on hold. We will proceed with catheter-based thoracentesis. Additional recommendations will be based on characteristics of the fluid and follow-up imaging. 2. Pulmonary embolism: Heparin on hold for procedures. Can potentially resume 4 to 6 hours after procedures are completed depending on findings. Will likely need at least 6 months of anticoagulation. Would recommend hematology evaluation in the outpatient setting for evaluation of thrombophilia at the 6- month timeframe. 3. COPD: Outpatient PFTs recommended. Patient is not bronchospastic currently. No indication for inhalers antibiotics or steroids 4. Tobacco abuse: Smoking cessation recommended. Discussed with patient. She is agreeable to the plan. Admission and Anticipated Discharge Date Admission Date: June 06, 2022 Subjective Patient seen and examined. EMR reviewed. The patient's been off of her heparin drip for over 4 hours. She continues to complain of some shortness of breath with exertion. No cough or chest pain. She denies fevers chills or night sweats Review of Systems Review of Systems: All systems reviewed & are unremarkable except as noted in Subjective Physical Exam Constitutional: WD/WN, vitals as above Neck: trachea midline, no thyromegaly Respiratory: normal respiratory effort; no respiratory distress, no labored breathing and not tachypneic Cardiovascular: RRR, no murmur, no edema Gastrointestinal (Abdomen): normal bowel sounds, soft, nontender, no hepatosplenomegaly Musculoskeletal: Extremities: extremities normal to inspection Skin: no rashes, warm and dry Lymphatic: no cervical lymphadenopathy Results & Data Results & Data ([facility]) Vital Signs (Past 12 Hours) Vital Signs Temp Pulse Pulse Resp BP BP Pulse Ox 06/09/22 07:36 36.8 C 60 18 111/68 94 06/09/22 07:00 60 06/09/22 02:58 36.8 C 65 24 137/73 92 06/08/22 22:48 60 06/08/22 22:34 36.6 C 60 18 122/76 122/76 95 06/08/22 21:10 O2 Del Method O2 Flow Rate 06/09/22 07:36 Nasal Cannula 4 06/09/22 07:00 06/09/22 02:58 Nasal Cannula 2 06/08/22 22:48 06/08/22 22:34 Nasal Cannula 2 06/08/22 21:10 Nasal Cannula 2 Laboratory Results 06/09/22 04:24 06/09/22 04:24 Diagnostic Findings Chest x-ray from today was independently reviewed. There is a moderate sized right-sided pleural effusion with blunting of the costophrenic angle. No significant effusion on the left. PG Care Time/CCT Total # of Minutes Spent Total Time Spent with Patient: Total time spent is greater than 50% in coordination of care (as documented) at patient's floor/unit and/or counseling patient: Coding Level of Care Code 18535 Subseq Hosp Care Lvl 2 Diagnoses Pulmonary emboli I26.99 Pleural effusion J90 Acute hypoxemic respiratory failure J96.01 SOB (shortness of breath) R06.02 Chest pain, pleuritic R07.81
--- NOTE | 2022-06-09 08:29 | Procedure Note ---
Procedure Note Date of Service June 09, 2022 Note Procedure: Diagnostic therapeutic ultrasound-guided catheter thoracentesis, right Junior Sales Assistant: Dr. Barry Ball Indication: Pleural effusion Consent: Signed by patient and verified with timeout prior to procedure Anesthesia: 8 mL's 1% lidocaine without epinephrine local. Procedure: Consent was verified and timeout performed. Appropriate imaging studies were reviewed prior to the procedure. Patient was placed in a seated position and limited thoracic ultrasound was performed of the bilateral chest. See separate imaging. No significant effusion was identified on the left. Right side had a moderate effusion with compressive atelectasis and positive lung flap. Site appropriate for thoracentesis on the right was selected. The skin was prepped and draped in normal sterile fashion. Lidocaine was used for local analgesia. Fluid was aspirated via the finder needle. A small skin tulio was made with the scalpel and the catheter over the needle apparatus was advanced over the rib into the pleural space. Using the syringe one-way valve system, a total of 800 mL's of bloody fluid was removed. Procedure was terminated due to patient coughing. The catheter was removed and observed to be intact. A sterile dressing was applied. Post procedure chest x-ray was ordered. Fluid was sent for cytology, cell count differential, gram stain and culture, AFB culture, LDH, pH, total protein, and glucose. The patient tolerated the procedure well without obvious complication Follow-up ultrasound demonstrated persistent effusion. Given the bloody nature of the fluid, recommended proceeding with pigtail catheter drainage. This was discussed with the patient and she is agreeable to proceed. Please refer to separate procedure note. Coding CPT Codes Pulmonary/Thoracic - Pulmonary and Thoracic: 98411 Thoracentesis w imaging ([id number]) [facility] [place]es) Pulmonary/Thoracic Procedure 1: Pulmonary and Thoracic: 28623 Thoracentesis w imaging
[2022-06-09] MEDS: FLUoxetine HCL 20 MG CAP PO SCH (08:58)
[2022-06-09] MEDS: POTASSIUM CHLORIDE CRTAB 20 MEQ TABCR PO SCH ×2 (08:58→16:34)
[2022-06-09] MEDS: SPIRONOLACTONE 12.5 MG TAB PO SCH (08:58)
[2022-06-09] MEDS: DOCUSATE SODIUM 100 MG CAP PO SCH ×2 (08:59→20:31)
[2022-06-09] MEDS: LIDOCAINE 5% 1 PATCH TD SCH (08:59)
[2022-06-09] MEDS: METOPROLOL TARTRATE 25 MG TAB PO SCH (08:59)
[2022-06-09] MEDS: AMIODARONE 200 MG TAB PO SCH ×2 (08:59→16:34)
[2022-06-09] MEDS: DOXYCYCLINE HYCLATE 100 MG CAP PO SCH ×2 (08:59→20:30)
[2022-06-09] MEDS: COLCHICINE 0.6 MG TAB PO SCH ×2 (08:59→20:30)
--- NOTE | 2022-06-09 09:19 | Procedure Note ---
Procedure Note Date of Service June 09, 2022 Note Procedure: 14 Argentine pigtail skater catheter placement on the right Event Mgr: Dr. aBrry Ball Indication: Bloody pleural effusion Consent: Signed by patient and verified with timeout prior to procedure Anesthesia: 8 mL's 1% lidocaine without epinephrine local. Procedure: Consent was verified and timeout performed. Appropriate imaging studies were reviewed prior to the procedure. Patient was placed in a seated position and limited thoracic ultrasound was performed of the right chest. A large pleural effusion was again identified with compressive atelectasis. Site appropriate for pigtail catheter placement was selected. The skin was prepped and draped in normal sterile fashion. Lidocaine was used for local analgesia. Fluid was aspirated via the finder needle. A small skin tulio was made with the scalpel and the 18-gauge needle was advanced over the rib into the pleural space. Needle was detached from the syringe. A wire was passed through the needle into the pleural space and the needle removed over the wire leaving the wire in place. A 14 Argentine dilator was then advanced over the wire without difficulty. A 14 Argentine skater pigtail catheter was then advanced over the wire into the space. The stiffening catheter was removed and the pigtail mechanism locked in place. Fluid was aspirated from the catheter. It was attached to a Marlen suction at 10 cm of water. A total of 1100 mils of bloody fluid was removed with continued slow drainage. Post procedure chest x-ray pending The patient tolerated the procedure well without obvious complication Coding CPT Codes Pulmonary/Thoracic - Pulmonary and Thoracic: 34670 Pleural drainage w/imaging ([id number]) [facility] [place] Procedure Codes (Charges) Pulmonary/Thoracic Procedure 1: Pulmonary and Thoracic: 83912 Pleural drainage w/imaging
--- NOTE | 2022-06-09 09:54 | XRay Report ---
XR chest 1V portable HISTORY: 67 years-old Female chest tube placement status post placement of a right-sided chest tube COMPARISON: Chest radiograph of same day at 3:26 AM TECHNIQUE: AP view of the chest FINDINGS: Status post placement of a right-sided pigtail pleural drainage catheter projects over the lateral ri ght lung base. Small right pleural effusion has decreased in size. Tiny right-sided pneumothorax with pleural separation measuring up to 3 mm at the right lateral lung base. Left subclavian pacer. Pulmo nary vascular congestion. The left lung is clear. Mild right basilar atelectasis. Bones appear grossl y intact. IMPRESSION: 1. Small right pleural effusion has decreased in size status post placement of a right-sided pleural drainage catheter. 2. Tiny right-sided pneumothorax. ACT 112: Negative or not required by law. The above report was generated using voice recognition software. It may contain grammatical, syntax o r spelling errors. Electronically signed by: Vern Wolfe M.D. 06/09/2022 9:52 AM
[2022-06-09 09:57] LABS: Appearance Pleural Fluid Bloody; Basophils, Fluid 1 %; Color Pleural Fluid Red; Eosinophils, Fluid 27 %; Lymphocytes, Fluid 7 %; Mono,Macrophage,Mesothelial 48 %; Neutrophils, Fluid 17 %; RBC Pleural Fluid (A) 286000 /uL; Source Pleural Fluid Right Lung; WBC Pleural Fluid (A) 2371 /uL
--- NOTE | 2022-06-09 10:09 | Cardiology Progress Note ---
Date of Service June 09, 2022 Assessment & Plan (1) Acute hypoxemic respiratory failure: (2) SOB (shortness of breath): (3) Atrial fibrillation with RVR: (4) Atrial pacemaker lead displacement: (5) Chest pain, pleuritic: (6) Pleural effusion: (7) Pulmonary emboli: (8) Pericardial effusion: Plan Continue low dose metoprolol and oral amiodarone Continue Colchicine Pacemaker interrogation/reprogramming by [employer] Money Position Officer pending. Anticoagulation as per Pulmonary/Hospitalist. Admission and Anticipated Discharge Date Admission Date: June 06, 2022 Supervising Physician Co-Signing Physician Notes I have seen and examined the patient. I have reviewed the medical record discussed the case with Mr. De Oliveira. I also reviewed the echocardiogram completed this morning and there has been a marked improvement in the patient's pericardial effusion. Subjective Patient seen and examined. Chart, medications, and telemetry reviewed. Status post right sided thoracentesis and pigtail skater catheter placement. Right sided chest discomfort. + Cough. Breathing OK. No palpitations. No edema. No subjective fevers or chills Telemetry: Sinus/atrial paced. No atrial fibrillation. EKG this morning reveals normal sinus rhythm at 64 bpm with diffuse T wave changes, QTc of 486 ms. Preliminary review of the limited echo this AM shows improvement in the pericardial effusion Review of Systems Review of Systems: Complete Review of Systems is as stated above, negative, or noncontributory Physical Exam Physical Exam: General: A&Ox3. NAD. HENT: Normocephalic. Atraumatic. Eyes: PER. Conjunctiva pink, sclera clear. Conway: Carotid bruits. JVD. Heart: RRR. No rub. PMI is nondisplaced. Chest: Right sided catheter. Lungs: Clear anteriorly. No wheeze. Abdomen: +BS. Soft. Nontender. No masses or organomegaly. Extremities: No clubbing, cyanosis, or edema. Limited neurological examination is without focal deficits. Pulses: radial=2/4, posterior tibial=1/4. Results & Data ([facility]) Vital Signs (Past 12 Hours) Vital Signs Temp Pulse Pulse Resp BP BP Pulse Ox 06/09/22 08:00 06/09/22 08:33 69 19 133/80 94 06/09/22 07:36 36.8 C 60 18 111/68 94 06/09/22 07:00 60 06/09/22 02:58 36.8 C 65 24 137/73 92 06/08/22 22:48 60 06/08/22 22:34 36.6 C 60 18 122/76 122/76 95 O2 Del Method O2 Flow Rate 06/09/22 08:00 Nasal Cannula 3 06/09/22 08:33 Nasal Cannula 3 06/09/22 07:36 Nasal Cannula 4 06/09/22 07:00 06/09/22 02:58 Nasal Cannula 2 06/08/22 22:48 06/08/22 22:34 Nasal Cannula 2 Laboratory Results Cardiac Enzymes 06/09/22 Range/Units 04:24 Troponin I High Sens 3.5 (0-14) pg/ml Coagulation 06/08/22 06/09/22 Range/Units 09:18 04:24 APTT 50.8 H* 37.6 H (21.0-31.0) Seconds CBC 06/09/22 Range/Units 04:24 WBC 9.24 (4.8-10.8) K/ul RBC 3.87 L (3.93-5.22) M/uL Hgb 12.3 (12.0-16.0) g/dl Hct 36.4 (34.1-44.9) % Plt Count 403 H (130-400) K/uL Neut # (Auto) 6.94 H (1.4-6.5) K/uL Lymph # (Auto) 1.14 L (1.2-3.4) K/uL Harmon # (Auto) 0.83 H (0.24-0.82) K/uL Eos # (Auto) 0.25 (0-0.50) K/uL Baso # (Auto) 0.06 (0-0.2) K/uL Comprehensive Metabolic Panel 06/09/22 Range/Units 04:24 Sodium 136 (136-145) mmol/L Potassium 4.0 (3.5-5.1) mmol/L Chloride 100 (98-107) mmol/L Carbon Dioxide 31 (21-32) mmol/L BUN 16 (6-23) mg/dl Creatinine 0.41 L (0.6-1.2) mg/dl Glucose 99 (70-99(Fasting)) mg/dl Calcium 8.8 (8.5-10.1) mg/dl Intake and Output 06/08/22 06/09/22 06/09/22 22:59 06:59 14:59 Intake Total 195.866 / 780.666 468.667 / 780.666 Output Total 450 / 1051 600 / 1051 Balance -254.134 / -270.334 -131.333 / -270.334 Intake: IV 195.866 / 580.666 268.667 / 580.666 Heparin Sodium/Dextrose 25,000 195.866 / 580.666 268.667 / 580.666 units In 500 ml @ 1,300 UNITS/ HR 26 mls/hr IV .[id number] [facility] Rx #:[id number] Oral 200 / 200 Output: Urine 450 / 1000 550 / 1000 Urine Amount (Catheter) 50 / 50 External 50 / 50 Other: Weight 79.6 kg 78.6 kg Weight Measurement Method Built in [facility]
[2022-06-09 11:32] LABS: Reticulocyte % 1.3 % (0.5-2.0); Reticulocytes # 0.05 10^6/uL (0.02-0.10)
[2022-06-09] MEDS: HEPARIN SODIUM/DEXTROSE 25,000 UNITS/500 ML BAG IV SCH (14:44)
--- NOTE | 2022-06-09 14:44 | Electrocardiogram Report ---
Test Reason : Blood Pressure : / mmHG Vent. Rate : 064 BPM Atrial Rate : 064 BPM P-R Int : 150 ms QRS Dur : 092 ms QT Int : 472 ms P-R-T Axes : 069 095 079 degrees QTc Int : 486 ms Normal sinus rhythm Rightward axis T wave abnormality, consider inferior ischemia T wave abnormality, consider anterolateral ischemia Abnormal ECG When compared with ECG of 07-JUN-2022 10:30, Sinus rhythm has replaced Atrial fibrillation Vent. rate has decreased BY 51 BPM Confirmed by Tom Kirkland ([id number]) on 06/09/2022 2:44:15 PM Referred By: REFERRED SELF Confirmed By:Tom Kirkland
--- NOTE | 2022-06-09 18:02 | Hospitalist Progress Note ---
Date of Service June 09, 2022 Assessment & Plan (1) Acute hypoxemic respiratory failure: Plan: Acute hypoxic respiratory failure Multifactorial: Pleural, pericardial effusion, pulmonary emboli, A. fib RVR Left lower lobe segmental PE --CTA Chest:Several segmental pulmonary emboli within the left lower lobe, new since chest CT of May 26, 2022. Increase in size of a loculated large right pleural effusion. Partial compressive atelectasis of the right lower lobe. Small left pleural effusion. Increase in size of a small to moderate pericardial effusion. --Venous Doppler: ESR:72 CRP:16.6 Immunological work-up pending -- Eliquis will be transition to IV heparin for procedure --Received IV Lasix Continue Aldactone Monitor volume status, electrolytes Appreciate pulmonary input Incentive spirometry S/P pigtail catheter placement on 06/09/22 Plan to resume anticoagulation 6 hours after procedure if no issues of bleeding--defer to Pulm Pericardial Effusion --ECHO: Left ventricle is normal size bilateral residual was normal. 60 to 65%. Right ventricle systolic was normal. Left atrium is moderately dilated. Right atrium size is normal. Moderate sized pericardial effusion. There is no echocardiographic indications of cardiac tamponade. --started on colchicine Repeat limited echo showed decreased pericardial effusion A. fib RVR Continue amiodarone, metoprolol Eliquis>> IV heparin for anticoagulation Monitor and replete electrolytes as needed Converted to sinus Abdominal wound Infection H/O rectosigmoid resection due to diverticulitis per records -CT ABD: No acute intra-abdominal or intrapelvic abnormality. No bowel obstruction or bowel wall thickening. Moderate fecal retention with colonic diverticulosis.Diastases recti with scarring of the lower anterior abdominal wall. Nonobstructing bilateral nephrolithiasis. Continue Doxycycline Continue Wound Care SSS S/P PPM H/O Atrial pacemaker lead displacement Had right atrial pacing lead revision on 06/02/22 On amiodarone, metoprolol Pacemaker interrogation requested Hepatic lesions --Liver USD:No significant biliary ductal dilatation status post cholecystectomy. 1.6 cm hypoechoic left hepatic lobe lesion. Although probably benign, this is technically indeterminate although no suspicious hepatic lesions were shown on recent abdominal CT of May 26, 2022. Multiple additional hepatic lesions reflect cysts. --CT ABD pending -- Needs repeat imaging in 6 months and follow-up as outpatient Suspected PAULINO Sleep study as outpatient HTN BP relatively low Continue current medications Monitor H/O Fibromyalgia ongoing tobacco abuse Continue home medications Counseled to quit smoking DVT Px: Was on Eliquis IV Heparin Code Status Full code Admission and Anticipated Discharge Date Admission Date: June 06, 2022 Subjective Patient is seen and examined at bedside States having dyspnea with exertion Also reports soreness at site of chest tube Had chest tube placement earlier today Saturating 93% on 3 L supplemental oxygen Denies any dizziness, abdominal pain Review of Systems Review of Systems: All systems reviewed & are unremarkable except as noted in Subjective Physical Exam Physical Exam: Physical Exam: Vitals signs as noted above General Appearance:Moderately built and nourished, ill-appearing, mild distress Head: normocephalic, Atraumatic Eyes: normal inspection, EOMI Neck: supple, Trachea midline Respiratory/Chest: Decreased breath sounds, CTA, No accessory muscle use, + pacemaker, +Chest Tube placement Cardiovascular: S1, S2, No murmur Abdomen/GI:Soft, mild tender, + abdominal incisional wound ,bowel sounds present Extremities/Musculoskeletal:normal inspection, Trace edema Neurologic/Psych:AAOX3, grossly no focal neurological deficits Skin: normal color, warm Results & Data Results & Data ([facility]) Vital Signs (Past 12 Hours) Vital Signs Temp Pulse Pulse Resp BP Pulse Ox O2 Del Method 06/09/22 16:15 36.8 C 58 L 18 110/65 93 Nasal Cannula 06/09/22 16:00 60 06/09/22 11:38 36.8 C 60 18 117/72 94 Nasal Cannula 06/09/22 09:17 Nasal Cannula 06/09/22 08:00 Nasal Cannula 06/09/22 08:33 69 19 133/80 94 Nasal Cannula 06/09/22 07:36 36.8 C 60 18 111/68 94 Nasal Cannula 06/09/22 07:00 60 O2 Flow Rate 06/09/22 16:15 3 06/09/22 16:00 06/09/22 11:38 3 06/09/22 09:17 3 06/09/22 08:00 3 06/09/22 08:33 3 06/09/22 07:36 4 06/09/22 07:00 Laboratory Results Short CBC 06/09/22 Range/Units 04:24 WBC 9.24 (4.8-10.8) K/ul Hgb 12.3 (12.0-16.0) g/dl Hct 36.4 (34.1-44.9) % Plt Count 403 H (130-400) K/uL BMP 06/09/22 04:24 Sodium 136 Potassium 4.0 Chloride 100 Carbon Dioxide 31 BUN 16 Creatinine 0.41 L Glucose 99 Calcium 8.8
[2022-06-09] MEDS ORDERED: SODIUM CHLORIDE 0.9% 250 ML IV PRN (18:08)
[2022-06-09 20:08] LABS: Hematocrit (blood only) 38.9 % (34.1-44.9); Hemoglobin 13.2 g/dl (12.0-16.0)
[2022-06-09] MEDS: FAMOTIDINE 20 MG TAB PO SCH (20:30)
[2022-06-09] MEDS: traZODone HCL 100 MG TAB PO SCH (20:30)
[2022-06-10] MEDS: METOPROLOL TARTRATE 25 MG TAB PO SCH ×2 (01:54→07:48)
[2022-06-10 06:42] LABS: BUN Creatinine Ratio 38.6 (10-20); Calcium 9.3 mg/dl (8.5-10.1); Est GFR (African American) 121.1 ml/min; Est GFR (Non-African American) 104.5 ml/min; Potassium 3.9 mmol/L (3.5-5.1)
[2022-06-10] MEDS: oxyCODONE HCL IR 5 MG TAB (IMMEDIATE RELEASE) PO PRN ×3 (07:48→20:03)
[2022-06-10] MEDS: DOXYCYCLINE HYCLATE 100 MG CAP PO SCH ×2 (07:49→19:58)
[2022-06-10] MEDS: FAMOTIDINE 20 MG TAB PO SCH ×2 (07:49→19:57)
[2022-06-10] MEDS: POTASSIUM CHLORIDE CRTAB 20 MEQ TABCR PO SCH ×2 (07:49→16:05)
[2022-06-10] MEDS: AMIODARONE 200 MG TAB PO SCH ×2 (07:49→16:05)
[2022-06-10] MEDS: SPIRONOLACTONE 12.5 MG TAB PO SCH (07:49)
[2022-06-10] MEDS: FLUoxetine HCL 20 MG CAP PO SCH (07:49)
[2022-06-10] MEDS: COLCHICINE 0.6 MG TAB PO SCH ×2 (07:50→19:57)
[2022-06-10] MEDS: LIDOCAINE 5% 1 PATCH TD SCH (07:50)
[2022-06-10] MEDS: DOCUSATE SODIUM 100 MG CAP PO SCH ×2 (07:50→19:58)
--- NOTE | 2022-06-10 09:16 | XRay Report ---
XR chest 1V portable CLINICAL HISTORY: chest tube COMPARISON STUDY: Chest CT June 06, 2022. Chest radiograph June 09, 2022. FINDINGS: Right basilar pleural catheter remains in place. No pneumothorax is identified. There may b e a trace residual right pleural effusion. Right lower lung airspace opacity has increased. Left subc lavian pacer is in place. Cardiomediastinal silhouette is normal. Subtle interstitial thickening is u nchanged. IMPRESSION: 1. Right basilar pleural catheter in place. No pneumothorax. Trace residual pleural effusion. 2. Increase in right basilar opacity. ACT 112: Negative or not required by law. Electronically signed by: Mando Maldonado M.D. 06/10/2022 9:15 AM
--- NOTE | 2022-06-10 10:53 | Cardiology Progress Note ---
Date of Service June 10, 2022 Assessment & Plan (1) Acute hypoxemic respiratory failure: (2) SOB (shortness of breath): (3) Atrial fibrillation with RVR: (4) Atrial pacemaker lead displacement: (5) Chest pain, pleuritic: (6) Pleural effusion: (7) Pulmonary emboli: (8) Pericardial effusion: Plan Continue cardiac medications as prescribed Continue Colchicine Anticoagulation as per Pulmonary/Hospitalist. Admission and Anticipated Discharge Date Admission Date: June 06, 2022 Supervising Physician Co-Signing Physician Notes Have seen and examined the patient. I reviewed the medical record and discussed the case with Mr. De Oliveira. I agree with the plan as outlined. The patient's most recent echocardiogram indicates improvement in the pericardial effusion. Overall I believe the patient is doing better. Subjective Patient seen and examined. Chart, medications, and telemetry reviewed. Status post 06/09/2022 right sided thoracentesis and pigtail skater catheter placement. Slept well. Feels considerably better today. + right sided chest discomfort. Less cough. Improved dyspnea. No palpitations. No edema. June 09, 2022 Limited TTE Interpretation Summary ([facility], Dr. Landin): When comparing this echocardiogram to the previous study of June 07, 2022, the pericardial effusion is reduced in size and is trivial or small now. Telemetry: Sinus/atrial paced in the 60's to 80's with occasional PVC's. No atrial fibrillation. Pacemaker interrogated by [employer] Cafe Manager 06/09/2022. RA lead is stable. Output decreased to normal. Review of Systems Review of Systems: Complete Review of Systems is as stated above, negative, or noncontributory Physical Exam Physical Exam: General: A&Ox3. NAD. HENT: Normocephalic. Atraumatic. Eyes: PER. Conjunctiva pink, sclera clear. Conway: No JVD. Heart: RRR. No rub. PMI is nondisplaced. Chest: Right sided catheter. Lungs: Clear anteriorly. Abdomen: +BS. Soft. Nontender. No masses or organomegaly. Extremities: No clubbing, cyanosis, or edema. Limited neurological examination is without focal deficits. Pulses: Posterior tibial=1/4. Results & Data ([facility]) Vital Signs (Past 12 Hours) Vital Signs Temp Pulse Pulse Resp BP Pulse Ox Pulse Ox 06/10/22 10:34 36.4 C L 60 17 109/68 94 06/10/22 10:34 06/10/22 08:00 95 06/10/22 07:38 36.7 C 71 16 113/76 94 06/10/22 07:18 61 06/10/22 03:32 36.7 C 60 20 119/71 95 06/09/22 23:40 36.6 C 60 16 121/79 97 O2 Del Method O2 Del Method O2 Flow Rate O2 Flow Rate 06/10/22 10:34 Nasal Cannula 2 06/10/22 10:34 Nasal Cannula 2 06/10/22 08:00 Nasal Cannula 2 06/10/22 07:38 Nasal Cannula 2 06/10/22 07:18 06/10/22 03:32 Nasal Cannula 3.0 06/09/22 23:40 Nasal Cannula 3.0 Laboratory Results CBC 06/09/22 Range/Units 19:54 Hgb 13.2 (12.0-16.0) g/dl Hct 38.9 (34.1-44.9) % Comprehensive Metabolic Panel 06/10/22 Range/Units 05:46 Sodium 137 (136-145) mmol/L Potassium 3.9 (3.5-5.1) mmol/L Chloride 101 (98-107) mmol/L Carbon Dioxide 29 (21-32) mmol/L BUN 17 (6-23) mg/dl Creatinine 0.44 L (0.6-1.2) mg/dl Glucose 103 H (70-99(Fasting)) mg/dl Calcium 9.3 (8.5-10.1) mg/dl Intake and Output 06/09/22 06/10/22 06/10/22 22:59 06:59 14:59 Intake Total 275 / 875 300 / 875 360 / 360 Output Total 2 421 / 2212 252 / 252 Balance 234 / -1337 -121 / -1337 108 / 108 Intake: Oral 275 / 875 300 / 875 360 / 360 Output: Urine 400 / 400 250 / 250 Chest Tube Drainage 1809 Right Pleur-Evac Marlen 1809 # Bowel Movements 1 / 2 1 / 2 2 / 2 Other: Weight 74.6 kg Weight Measurement Method Standing Scale
--- NOTE | 2022-06-10 11:56 | Pulmonology Progress Note ---
Date of Service June 10, 2022 Assessment & Plan (1) Pulmonary emboli: (2) Pleural effusion: (3) Acute hypoxemic respiratory failure: (4) SOB (shortness of breath): (5) Chest pain, pleuritic: Plan Impression: 67-year-old female with history of tobacco abuse with hemorrhagic pleural effusion and pulmonary emboli Recommendations: 1. Pleural effusion: Bloody exudate with negative cytology. Could be related to PE and anticoagulation. Serositis also a possibility. It does not appear to have reaccumulated with minimal drainage overnight. We will remove the pigtail catheter and observe clinically. Consider reimaging if the patient were to develop signs or symptoms concerning for reaccumulation of pleural fluid 2. Pulmonary embolism: Okay to resume anticoagulation. Oral anticoagulation may be appropriate. 3 to 6 months given unprovoked nature and hematology follo w-up recommended. Could make a case for lifelong anticoagulation. 3. COPD: Outpatient PFTs recommended. Patient is not bronchospastic currently. No indication for inhalers antibiotics or steroids 4. Tobacco abuse: Smoking cessation recommended. Discussed with patient and clinical nurse at bedside Admission and Anticipated Discharge Date Admission Date: June 06, 2022 Subjective Patient seen and examined. EMR reviewed. Patient states her breathing is better. She is having some slight discomfort at the chest tube insertion site. Breathing is definitely better with evacuation of the fluid. She is not coughing or bringing up phlegm. The pigtail catheter was removed at bedside under full expiration and an occlusive dressing applied. Patient tolerated the procedure well Review of Systems Review of Systems: All systems reviewed & are unremarkable except as noted in Subjective Physical Exam Constitutional: WD/WN, vitals as above Neck: trachea midline, no thyromegaly Respiratory: normal respiratory effort; no respiratory distress, no labored breathing and not tachypneic Cardiovascular: RRR, no murmur, no edema Chest (Breasts): Additional Comments: Chest tube with only an additional 100 cc out since yesterday. Back on suction with no air leak. Gastrointestinal (Abdomen): normal bowel sounds, soft, nontender, no hepatosplenomegaly Musculoskeletal: Extremities: extremities normal to inspection Skin: no rashes, warm and dry Lymphatic: no cervical lymphadenopathy Results & Data Results & Data ([facility]) Vital Signs (Past 12 Hours) Vital Signs Temp Pulse Pulse Resp BP Pulse Ox Pulse Ox 06/10/22 10:34 36.4 C L 60 17 109/68 94 06/10/22 10:34 06/10/22 08:00 95 06/10/22 07:38 36.7 C 71 16 113/76 94 06/10/22 07:18 61 06/10/22 03:32 36.7 C 60 20 119/71 95 O2 Del Method O2 Del Method O2 Flow Rate O2 Flow Rate 06/10/22 10:34 Nasal Cannula 2 06/10/22 10:34 Nasal Cannula 2 06/10/22 08:00 Nasal Cannula 2 06/10/22 07:38 Nasal Cannula 2 06/10/22 07:18 06/10/22 03:32 Nasal Cannula 3.0 Laboratory Results 06/09/22 19:54 06/10/22 05:46 Pleural fluid cytology negative Pleural fluid cell count differential showed 17% neutrophils, 7% lymphocytes, 27% eosinophils, 1% basophils, and 40% mesothelial cells. Pleural gram stain and culture no growth to date Pleural pH 7.44 Pleural total protein 4.0 Pleural LDH 386 Pleural glucose 98 Serological evaluation pending Diagnostic Findings Chest x-ray today demonstrated no evidence of pneumothorax. The pigtail catheter is in good position. There is some patchy opacity at the right lung base. PG Care Time/CCT Total # of Minutes Spent Total Time Spent with Patient: Total time spent is greater than 50% in coordination of care (as documented) at patient's floor/unit and/or counseling patient: Coding Level of Care Code 83968 Subseq Hosp Care Lvl 3 Diagnoses Pulmonary emboli I26.99 Pleural effusion J90 Acute hypoxemic respiratory failure J96.01 SOB (shortness of breath) R06.02 Chest pain, pleuritic R07.81
--- NOTE | 2022-06-10 13:07 | Hospitalist Progress Note ---
Date of Service June 10, 2022 Assessment & Plan (1) Acute hypoxemic respiratory failure: Plan: - likely multifactorial - found to have LLL mutliple PEs, right sided pleural effusion, recent pericardial effusion - started on AC - heparin drip --> Eliquis - s/p Chest tube per pulm - no removed - was bloody effusion but negative cytology - follow up further pulm recs - pericardia effusion resolve on repeat TTE - wean O2 as tolerated - counseled on smoking cessation (2) Pleural effusion: Plan: - s/p Chest tube per pulm - cytology negaive for malignancy - etiology unclear - possibly related to ?PE although was on ipsilateral side, vs pericardial effusion from PPM revision - also with recent weight loss - follow up further pulm recs (3) Pulmonary emboli: Plan: - continue AC 3-6 months with heme follow - may be candidate for life long AC - also given Afib - monitor for bleeding - wean O2 as tolerated (4) Dyslipidemia: Plan: - not on statin - history of tobacco use disorder, HTN - will get lipids and A1c (5) A-fib: Plan: - continue metoprolol and amiodarone - continue eliquis as above - rate controlled (6) Chronic abdominal wound infection: Plan: - will give 7 days doxycycline (7) Sick sinus syndrome: Plan: - s/p PPM - continue BB and amio as above (8) HTN (hypertension): Plan: - monitor - continue home meds as tolerated (9) Tobacco use disorder: Plan: - counseled on smoking cessation Plan DVT ppx: apixaban Code Status: Full Code Dipso: PCU - likely downgrade tomorrow Jose Adams MD [facility] Medicine Admission and Anticipated Discharge Date Admission Date: June 06, 2022 Subjective Patient presented with acute hypoxemic repsiratory failure, found to have several segmental PEs in LLL, started on AC. Worsening right pleural effusion s/p chest tube with bloody drainage, cytology negative for malignancy, CT removed by pulm. Patient reports feeling ok, denies shortness of breath, cough, fever or chills, chest pain, n/v/d, dysuria. Reports weight loss of about 10 pounds in the last month. Endorses poor appetite during this time. Review of Systems Review of Systems: All systems reviewed & are unremarkable except as noted in Subjective Physical Exam Physical Exam: Physical Exam: Vitals signs as noted above General Appearance:Moderately built and nourished, ill-appearing, mild distress Head: normocephalic, Atraumatic Eyes: normal inspection, EOMI Neck: supple, Trachea midline Respiratory/Chest: Decreased breath sounds, CTA, No accessory muscle use, + pacemaker, +Chest Tube with minimal bloody drainage - still in at time of my exam Cardiovascular: S1, S2, No murmur Abdomen/GI:Soft, mild tender, + abdominal incisional wound ,bowel sounds present Extremities/Musculoskeletal:normal inspection, Trace edema Neurologic/Psych:AAOX3, grossly no focal neurological deficits Skin: normal color, warm Results & Data Results & Data ([facility]) Vital Signs (Past 12 Hours) Vital Signs Temp Pulse Pulse Resp BP Pulse Ox Pulse Ox 06/10/22 10:34 36.4 C L 60 17 109/68 94 06/10/22 10:34 06/10/22 08:00 95 06/10/22 07:38 36.7 C 71 16 113/76 94 06/10/22 07:18 61 06/10/22 03:32 36.7 C 60 20 119/71 95 O2 Del Method O2 Del Method O2 Flow Rate O2 Flow Rate 06/10/22 10:34 Nasal Cannula 2 06/10/22 10:34 Nasal Cannula 2 06/10/22 08:00 Nasal Cannula 2 06/10/22 07:38 Nasal Cannula 2 06/10/22 07:18 06/10/22 03:32 Nasal Cannula 3.0 Diagnostic Findings Laboratory Results WBC 9.24 K/ul (4.8-10.8) 06/09/22 04:24 RBC 3.87 M/uL (3.93-5.22) L 06/09/22 04:24 Hgb 13.2 g/dl (12.0-16.0) 06/09/22 19:54 Hct 38.9 % (34.1-44.9) 06/09/22 19:54 MCV 94.1 fL (80.0-100.0) 06/09/22 04:24 MCH 31.8 pg (25.0-34.0) 06/09/22 04:24 MCHC 33.8 g/dL (32.0-36.0) 06/09/22 04:24 RDW Std Deviation 47.3 fL (36.4-46.3) H 06/09/22 04:24 RDW Coeff of [place] 13.7 % (11.5-14.5) 06/09/22 04:24 Plt Count 403 K/uL (130-400) H 06/09/22 04:24 MPV 8.6 fL (9.4-12.3) L 06/09/22 04:24 Immature Gran % (Auto) 0.2 % 06/09/22 04:24 Neut % (Auto) 75.2 % 06/09/22 04:24 Lymph % (Auto) 12.3 % 06/09/22 04:24 [place] % (Auto) 9.0 % 06/09/22 04:24 Eos % (Auto) 2.7 % 06/09/22 04:24 Baso % (Auto) 0.6 % 06/09/22 04:24 Reticulocyte % (Auto) 1.3 % (0.5-2.0) 06/09/22 04:24 Neut # (Auto) 6.94 K/uL (1.4-6.5) H 06/09/22 04:24 Lymph # (Auto) 1.14 K/uL (1.2-3.4) L 06/09/22 04:24 [place] # (Auto) 0.83 K/uL (0.24-0.82) H 06/09/22 04:24 Eos # (Auto) 0.25 K/uL (0-0.50) 06/09/22 04:24 Baso # (Auto) 0.06 K/uL (0-0.2) 06/09/22 04:24 Reticulocyte # 0.05 10^6/uL (0.02-0.10) 06/09/22 04:24 Immature Gran # (Auto) 0.02 K/uL (0.00-0.02) 06/09/22 04:24 ESR 72 mm/hr (0-30) H 06/08/22 09:18 APTT 37.6 Seconds (21.0-31.0) H 06/09/22 04:24 PTT Ratio 1.4 06/09/22 04:24 ABG pH 7.45 (7.35-7.45) 06/09/22 04:29 ABG pCO2 48 mmHg (35-46) H 06/09/22 04:29 ABG pO2 93 mmHg (80-95) 06/09/22 04:29 ABG HCO3 33 mmol/L (19-24) H 06/09/22 04:29 ABG O2 Saturation 99.4 % (90-95) H 06/09/22 04:29 ABG Base Excess 8.1 mEq/L (-9-1.8) H 06/09/22 04:29 Wolf Test Pos (Pos) 06/09/22 04:29 Oxygen Given 4L 06/09/22 04:29 Sodium 137 mmol/L (136-145) 06/10/22 05:46 Potassium 3.9 mmol/L (3.5-5.1) 06/10/22 05:46 Chloride 101 mmol/L (98-107) 06/10/22 05:46 Carbon Dioxide 29 mmol/L (21-32) 06/10/22 05:46 Anion Gap 7 (3-11) 06/10/22 05:46 BUN 17 mg/dl (6-23) 06/10/22 05:46 Creatinine 0.44 mg/dl (0.6-1.2) L 06/10/22 05:46 Est Cr Clr Drug Dosing 120.0 ml/min 06/10/22 05:46 Est GFR ( Amer) 121.1 ml/min 06/10/22 05:46 Est GFR (Non-Af Amer) 104.5 ml/min 06/10/22 05:46 BUN/Creatinine Ratio 38.6 (10-20) H 06/10/22 05:46 Glucose 103 mg/dl (70-99(Fasting)) H 06/10/22 05:46 Lactate 0.9 mmol/L (0.4-2.0) 06/06/22 18:16 Calcium 9.3 mg/dl (8.5-10.1) 06/10/22 05:46 Magnesium 1.7 mg/dl (1.7-2.4) 06/09/22 04:24 Iron 31 mcg/dl (35-150) L 06/09/22 07:01 Transferrin 151 mg/dl (200-360) L 06/09/22 07:01 Ferritin 500.0 ng/ml (8-388) H 06/09/22 07:01 Total Bilirubin 0.9 mg/dl (0.2-1.0) 06/06/22 15:14 AST 8 U/L (13-39) L 06/06/22 15:14 ALT 7 U/L (7-52) 06/06/22 15:14 Alkaline Phosphatase 140 U/L (34-104) H 06/06/22 15:14 Troponin I High Sens 3.5 pg/ml (0-14) 06/09/22 04:24 C-Reactive Protein 16.66 mg/dl (0-0.5) H 06/08/22 09:18 Total Protein 6.8 gm/dl (6.0-8.3) 06/06/22 15:14 Albumin 3.2 gm/dl (3.4-5.0) L 06/06/22 15:14 Globulin 3.6 gm/dl (2.5-4.0) 06/06/22 15:14 Albumin/Globulin Ratio 0.9 (0.9-2) 06/06/22 15:14 Lipase 24 U/L (11-82) 06/06/22 15:14 Vitamin B12 > 1500 pg/ml (180-914) H 06/09/22 07:01 Folate 6.89 ng/ml (>5.38) 06/09/22 07:01 Procalcitonin < 0.05 ng/ml (0-0.5) 06/06/22 15:14 TSH 1.886 uIu/ml (0.300-4.500) 06/07/22 07:28 Urine Color Yellow 06/06/22 16:46 Urine Appearance Clear (Clear) 06/06/22 16:46 Urine pH 5.5 (4.5-7.5) 06/06/22 16:46 Ur Specific [place] 1.012 (1.000-1.030) 06/06/22 16:46 Urine Protein Negative (Negative) 06/06/22 16:46 Urine Glucose (UA) Negative (Negative) 06/06/22 16:46 Urine Ketones Negative (Negative) 06/06/22 16:46 Urine Blood 2+ (Negative) H 06/06/22 16:46 Urine Nitrite Negative (Negative) 06/06/22 16:46 Urine Bilirubin Negative (Negative) 06/06/22 16:46 Urine Urobilinogen Negative (Negative) 06/06/22 16:46 Ur Leukocyte Esterase 1+ (Negative) H 06/06/22 16:46 Urine WBC (Auto) 1-5 /hpf (0-5) 06/06/22 16:46 Urine RBC (Auto) 5-10 /hpf (0-4) H 06/06/22 16:46 U Hyaline Cast (Auto) 0 /lpf (0-5) 06/06/22 16:46 U Epithel Cells (Auto) 10-20 /lpf (0-5) H 06/06/22 16:46 Urine Bacteria (Auto) Negative (Negative) 06/06/22 16:46 Fluid Neutrophils % 17 % 06/09/22 Unknown Fluid Lymphocytes % 7 % 06/09/22 Unknown Fluid Eosinophils % 27 % 06/09/22 Unknown Fluid Basophils % 1 % 06/09/22 Unknown Fluid [place] % 48 % 06/09/22 Unknown Fluid Comment 06/09/22 Unknown Pleural Fluid Source Right Lung 06/09/22 Unknown Pleural Color Red 06/09/22 Unknown Pleural Appearance Bloody 06/09/22 Unknown Pleural pH 7.44 (7.3-7.4) H 06/09/22 Unknown Pleural WBC 2371 /uL 06/09/22 Unknown Pleural RBC [id number] /uL 06/09/22 Unknown Pleural Total Protein 4.0 gm/dl 06/09/22 Unknown Pleural LDH 386 U/L 06/09/22 Unknown Pleural Glucose 98 mg/dl 06/09/22 Unknown Hepatitis C Ab (EIA) NON-REACTIVE (NON-REACTIVE) 06/07/22 07:28 Hep C Ab Signal/Cutoff 0.04 (<1.00) 06/07/22 07:28 SARS-CoV-2, RNA, NAAT NEGATIVE (NEGATIVE) 06/06/22 19:53 Blood Type A Positive 06/09/22 18:29 Antibody Screen NEGATIVE 06/09/22 18:29 Crossmatch See Detail 06/09/22 18:29 Impressions Liver Ultrasound 06/06/22 15:50 US liver CLINICAL HISTORY: epigastric and RUQ pain COMPARISON STUDY: CT of the abdomen and pelvis May 26, 2022. FINDINGS: A moderate to large right pleural effusion is incidentally noted. Multiple anechoic hepatic lesions reflect cysts. There is also 1.6 cm hypoechoic left hepatic lobe lesion. Caliber of the common bile duct is at the upper limits of normal following cholecystectomy, measuring 7 mm. The pancreas is obscured on this exam. There is no right hydronephrosis. IMPRESSION: 1. No significant biliary ductal dilatation status post cholecystectomy. 2. Moderate to large right pleural effusion. 3. 1.6 cm hypoechoic left hepatic lobe lesion. Although probably benign, this is technically indeterminate although no suspicious hepatic lesions were shown on recent abdominal CT of May 26, 2022. Therefore, a follow-up ultrasound in 6 months to ensure stability is recommended. 4. Multiple additional hepatic lesions reflect cysts. ACT 112: Negative or not required by law. Electronically signed by: Mando Maldonado M.D. 06/06/2022 7:06 PM Chest CTA 06/06/22 19:44 CT ANGIOGRAPHY OF THE CHEST, PULMONARY EMBOLUS PROTOCOL CLINICAL HISTORY: Shortness of breath. COMPARISON STUDY: Chest CT May 26, 2022 chest radiograph performed earlier today. TECHNIQUE: Following IV administration of 97 mL of Optiray, helical axial images of the chest were obtained utilizing the pulmonary embolus protocol. Maximal intensity projections and sagittal and coronal reformats were viewed on an independent 3D workstation. IV contrast was administered without complication. Automated exposure control was utilized for the study. A dose lowering technique was utilized adhering to the principles of ALARA. CT DOSE: 399.10 mGy.cm FINDINGS: Several segmental pulmonary emboli within the left lower lobe are new since chest CT of May 26, 2022. No central pulmonary emboli are present. Central pulmonary arteries are mildly dilated. A left subclavian pacer is in place. Mild cardiomegaly is noted. A small to moderate pericardial effusion has increased in size since prior CT. A large right pleural effusion has increased in size since prior CT as well. This effusion is loculated. Associated right lower lobe airspace opacity with volume loss favors compressive atelectasis. There is segmental atelectasis within the right upper lobe. A small left pleural effusion is noted. There is no pneumothorax. Patchy groundglass opacities within the lungs are present. There is no thoracic lymphadenopathy. No acute fracture or suspicious lesion within the bony thorax is identified. Hepatic lesions favor cysts. IMPRESSION: 1. Several segmental pulmonary emboli within the left lower lobe, new since [facility] CT of May 26, 2022. 2. Increase in size of a loculated large right pleural effusion. Partial compressive atelectasis of the right lower lobe. Small left pleural effusion. 3. Increase in size of a small to moderate pericardial effusion. ACT 112: Negative or not required by law. Electronically signed by: Mando Maldonado M.D. 06/07/2022 7:40 AM Abdomen/Pelvis CT 06/07/22 12:[address] WITHOUT CONTRAST CT DOSE: 677.38 mGy.cm HISTORY: Acute generalized abdominal pain Abdominal Incisional wound infection, abd pain TECHNIQUE: Multiaxial CT images of the abdomen and pelvis were performed without contrast. A dose lowering technique was utilized adhering to the principles of ALARA. COMPARISON STUDY: CTA chest 06/06/2022, CT abdomen and pelvis 05/26/2022 FINDINGS: Loculated large right pleural effusion with right basilar consolidation redemonstrated. Small left pleural effusion with left basilar consolidation favoring atelectasis. Mild groundglass densities of the lung bases. Partially imaged pacer leads. Moderate sized pericardial effusion with nonspecific stranding within the right cardiophrenic fat. No pneumatosis or pneumoperitoneum. The unenhanced spleen, moderately atrophic pancreas and adrenal glands appear unremarkable. Cholecystectomy with likely postsurgical intrahepatic and extrahepatic biliary ductal dilation, similar to prior. Numerous hepatic cysts are redemonstrated measuring up to 4 cm. Hepatomegaly. 4 mm nonobstructing calculus of the superior pole right kidney. 7 mm nonobstructing calculus of the inferior pole left kidney. There are a few cysts of the bilateral kidneys measuring up to 1.7 cm. No ureteral calculi or hydronephrosis identified. Urinary bladder wall thickening with partial distention. Contrast noted within the dependent urinary bladder. The pelvic structures are suboptimally visualized secondary to streak artifact from left hip arthroplasty. Pelvic basin phleboliths. Atherosclerosis of the abdominal aorta without aneurysm. No lymphadenopathy identified . Retroaortic left renal vein. Mild nonspecific distal esophageal wall thickening. No bowel obstruction or bowel wall thickening. Colonic diverticulosis. Moderate colonic fecal retention. The appendix is not visualized. There are 2 subcentimeter nodular foci versus loculated fluid within the mesentery adjacent to the distal stomach on image 243. Trace perihepatic ascites. Mild diastases recti with scarring of the lower anterior abdominal/pelvic wall. Degenerative changes of the spine and right hip. Left hip total joint arthroplasty. IMPRESSION: 1. No acute intra-abdominal or intrapelvic abnormality. 2. No bowel obstruction or bowel wall thickening. 3. Moderate fecal retention with colonic diverticulosis. 4. Right greater than left pleural effusions with right basilar consolidation is similar to the CTA chest from 06/06/2022. 5. Diastases recti with scarring of the lower anterior abdominal wall. 6. Nonobstructing bilateral nephrolithiasis. 7. Additional findings as above. ACT 112: Negative or not required by law. The above report was generated using voice recognition software. It may contain grammatical, syntax or spelling errors. Electronically signed by: Vern Wolfe M.D. 06/07/2022 2:50 PM Venous Doppler Study 06/07/22 12:41 BILATERAL LOWER EXTREMITY VENOUS DOPPLER HISTORY: Screening study in a patient with pulmonary embolus PE, Rule out DVT COMPARISON STUDY: CTA chest of same day, Doppler study 05/26/2022. FINDINGS: There is normal compressibility, flow, and augmentation within the bilateral lower extremity deep venous systems. IMPRESSION: No DVT within the right or left lower extremity. ACT 112: Negative or not required by law. Electronically signed by: Vern Wolfe M.D. 06/07/2022 4:05 PM Chest X-Ray 06/10/22 07:00 XR chest 1V portable CLINICAL HISTORY: chest tube COMPARISON STUDY: Chest CT June 06, 2022. Chest radiograph June 09, 2022. FINDINGS: Right basilar pleural catheter remains in place. No pneumothorax is identified. There may be a trace residual right pleural effusion. Right lower lung airspace opacity has increased. Left subclavian pacer is in place. Cardiomediastinal silhouette is normal. Subtle interstitial thickening is unchanged. IMPRESSION: 1. Right basilar pleural catheter in place. No pneumothorax. Trace residual pleural effusion. 2. Increase in right basilar opacity. ACT 112: Negative or not required by law. Electronically signed by: Mando Maldonado M.D. 06/10/2022 9:15 AM Medications Administered Current Inpatient Medications Acetaminophen (Acetaminophen 325 Mg Tab) 650 mg PO Q4H PRN PRN Reason: pain Stop: 07/06/22 22:38 Last Admin: 06/08/22 16:52 Dose: 650 mg Al Hydrox/Mg Hydrox/Simethicone (Aluminum/Magnesium/Simeth (Maalox Max) 30 Ml Udc) 15 ml PO Q6H PRN PRN Reason: Dyspepsia Stop: 07/07/22 10:31 Last Admin: 06/07/22 11:16 Dose: 15 ml Amiodarone HCl (Amiodarone 200 Mg Tab) 200 mg PO BIDM [facility] Stop: 07/07/22 16:59 Last Admin: 06/10/22 07:49 Dose: 200 mg Apixaban (Apixaban 5 Mg Tablet) 5 mg PO BID [facility] Stop: 07/06/22 22:38 Last Admin: 06/07/22 08:31 Dose: 5 mg Colchicine (Colchicine 0.6 Mg Tab) 0.6 mg PO BID [facility] Stop: 07/07/22 08:59 Last Admin: 06/10/22 07:50 Dose: 0.6 mg Docusate Sodium (Docusate Sodium 100 Mg Cap) 100 mg PO BID [facility] Stop: 07/07/22 20:59 Last Admin: 06/10/22 07:50 Dose: 100 mg Doxycycline Hyclate (Doxycycline Hyclate 100 Mg Cap) 100 mg PO BID [facility] Stop: 06/14/22 12:59 Last Admin: 06/10/22 07:49 Dose: 100 mg Famotidine (Famotidine 20 Mg Tab) 20 mg PO BID [facility] Stop: 07/09/22 20:59 Last Admin: 06/10/22 07:49 Dose: 20 mg Fluoxetine HCl (Fluoxetine Hcl 20 Mg Cap) 40 mg PO QAM [facility] Stop: 07/07/22 08:59 Last Admin: 06/10/22 07:49 Dose: 40 mg Promethazine HCl 12.5 mg/ (Sodium Chloride) 50.5 mls @ 202 mls/hr IV Q6H PRN PRN Reason: Nausea And Vomiting Stop: 07/06/22 22:38 Heparin Sodium/Dextrose (Heparin Sodium/Dextrose) 25,000 units in 500 mls @ 0 mls/hr IV .Q0M [facility]; Protocol Stop: 07/07/22 20:59 Last Admin: 06/09/22 14:44 Dose: Not Given Lidocaine (Lidocaine 5% 1 Patch) 1 patch TD QAM [facility] Stop: 07/06/22 23:29 Last Admin: 06/10/22 07:50 Dose: 1 patch Metoprolol Tartrate (Metoprolol Tartrate 25 Mg Tab) 12.5 mg PO BID [facility] Stop: 07/07/22 11:14 Last Admin: 06/10/22 07:48 Dose: 12.5 mg Miscellaneous (Remove Lidoderm Patch) 1 each N/A DAILY@2100 [facility] Stop: 07/07/22 20:59 Last Admin: 06/09/22 22:05 Dose: 1 each Oxycodone HCl (Oxycodone Hcl Ir 5 Mg Tab (Immediate Release)) 5 mg PO Q4H PRN PRN Reason: Pain Stop: 06/20/22 22:38 Last Admin: 06/10/22 07:48 Dose: 5 mg Polyethylene Glycol (Polyethylene (Miralax) 17 Gm Pack) 17 gm PO DAILY PRN PRN Reason: Constipation Stop: 07/06/22 22:38 Potassium Chloride (Potassium Chloride Crtab 20 Meq Tabcr) 20 meq PO BIDM [facility] Stop: 07/07/22 07:59 Last Admin: 06/10/22 07:49 Dose: 20 meq Spironolactone (Spironolactone 12.5 Mg Tab) 12.5 mg PO DAILY [place] Stop: 07/07/22 08:59 Last Admin: 06/10/22 07:49 Dose: 12.5 mg Trazodone HCl (Trazodone Hcl 100 Mg Tab) 100 mg PO HS [facility] Stop: 07/06/22 22:38 Last Admin: 06/09/22 20:30 Dose: 100 mg
[2022-06-10 15:33] LABS: Chol HDL Ratio 4.3 (0-5)
[2022-06-10] MEDS: APIXABAN 5 MG TABLET PO SCH (19:57)
[2022-06-10] MEDS: traZODone HCL 100 MG TAB PO SCH (19:58)
[2022-06-11] MEDS: METOPROLOL TARTRATE 25 MG TAB PO SCH ×2 (00:20→08:45)
[2022-06-11] MEDS: oxyCODONE HCL IR 5 MG TAB (IMMEDIATE RELEASE) PO PRN (05:04)
[2022-06-11 06:20] LABS: Basophils # (auto) 0.08 K/uL (0-0.2); Eosinophils # (auto) 0.17 K/uL (0-0.50); Eosinophils % (auto) 2.2 %; Hematocrit (blood only) 39.9 % (34.1-44.9); Hemoglobin 13.4 g/dl (12.0-16.0); Immature Granulocytes # (auto) 0.02 K/uL (0.00-0.02); Immature Granulocytes % (auto) 0.3 %; Lymphocytes # (auto) 1.63 K/uL (1.2-3.4); Mean Corpuscular Hemoglobin 31.2 pg (25.0-34.0); Mean Corpuscular Hgb Conc 33.6 g/dL (32.0-36.0); Mean Corpuscular Volume 92.8 fL (80.0-100.0); Monocytes # (auto) 0.79 K/uL (0.24-0.82); Monocytes % (auto) 10.2 %; Neutrophils # (auto) 5.08 K/uL (1.4-6.5); Neutrophils % (auto) 65.3 %; Platelet Count 448 K/uL (130-400); RDW Coefficient of Variation 13.4 % (11.5-14.5); RDW Standard Deviation 45.6 fL (36.4-46.3); White Blood Count 7.77 K/ul (4.8-10.8)
[2022-06-11 07:00] LABS: BUN Creatinine Ratio 39.1 (10-20); Calcium 9.2 mg/dl (8.5-10.1); Est GFR (African American) 119.3 ml/min; Est GFR (Non-African American) 102.9 ml/min; Potassium 3.8 mmol/L (3.5-5.1)
[2022-06-11 08:00] LABS: Estimated Average Glucose 111 mg/dl; Hemoglobin A1C 5.5 % (4.5-5.6)
[2022-06-11] MEDS: LIDOCAINE 5% 1 PATCH TD SCH (08:44)
[2022-06-11] MEDS: FLUoxetine HCL 20 MG CAP PO SCH (08:45)
[2022-06-11] MEDS: COLCHICINE 0.6 MG TAB PO SCH (08:45)
[2022-06-11] MEDS: SPIRONOLACTONE 12.5 MG TAB PO SCH (08:45)
[2022-06-11] MEDS: FAMOTIDINE 20 MG TAB PO SCH (08:45)
[2022-06-11] MEDS: DOXYCYCLINE HYCLATE 100 MG CAP PO SCH (08:45)
[2022-06-11] MEDS: POTASSIUM CHLORIDE CRTAB 20 MEQ TABCR PO SCH (08:46)
[2022-06-11] MEDS: APIXABAN 5 MG TABLET PO SCH (08:46)
[2022-06-11] MEDS: DOCUSATE SODIUM 100 MG CAP PO SCH (08:46)
[2022-06-11] MEDS: AMIODARONE 200 MG TAB PO SCH (08:46)
--- NOTE | 2022-06-11 10:05 | XRay Report ---
XR chest 1V portable HISTORY: Chest tube removal. Follow-up. COMPARISON: Chest 06/10/2022. FINDINGS: Interval removal of the right basilar pleural catheter. No pneumothorax. Trace right pleura l effusion and right basilar densities persist. The left lung is clear. The heart is normal in size. There is a left-sided dual-chamber pacemaker. IMPRESSION: 1. Interval removal of a right basilar pleural catheter. No definite pneumothorax. 2. Trace right pleural effusion and right basilar densities persist. ACT 112: Negative or not required by law. Electronically signed by: Sukumar Acuña M.D. 06/11/2022 10:04 AM
--- NOTE | 2022-06-11 10:12 | Cardiology Progress Note ---
Date of Service June 11, 2022 Assessment & Plan (1) Acute hypoxemic respiratory failure: (2) SOB (shortness of breath): (3) Atrial fibrillation with RVR: (4) Atrial pacemaker lead displacement: (5) Chest pain, pleuritic: (6) Pleural effusion: (7) Pulmonary emboli: (8) Pericardial effusion: Plan Continue as prescribed; Colchicine x 3 months, as tolerated. Outpatient cardiology follow-up. Contact with questions/concerns. Admission and Anticipated Discharge Date Admission Date: June 06, 2022 Supervising Physician Co-Signing Physician Notes I reviewed the medical record and discussed the case with Mr. De Oliveira. I have seen and examined the patient. I agree with the plan as outlined. At this point I believe the patient can be discharged to outpatient follow-up per the hospitalist service. We will arrange for her to be seen in our device clinic. Subjective Patient seen and examined. Chart, medications, and telemetry reviewed. Pigtail catheter removed. Improving right sided chest discomfort with inspiration. Improved dyspnea. No palpitations. No fluid retention. Telemetry: Sinus/atrial paced in the 60's and 70's, with occasional PVC's in singles. No atrial fibrillation. June 09, 2022 Limited TTE Interpretation Summary ([facility], Dr. Landin): When c omparing this echocardiogram to the previous study of June 07, 2022, the pericardial effusion is reduced in size and is trivial or small now. Pacemaker interrogated by [employer] Neurophysiology Tech 06/09/2022. RA lead stable. RA output decreased to normal. Review of Systems Review of Systems: Complete Review of Systems is as stated above, negative, or noncontributory Physical Exam Physical Exam: General: A&Ox3. NAD. HENT: Normocephalic. Atraumatic. Eyes: PER. Conjunctiva pink, sclera clear. [place]: No JVD. Heart: RRR. No rub. PMI is nondisplaced. Lungs: Right sided rhonchi that resolved post cough. Decreased breath sounds at the right base. Abdomen: +BS. Soft. Nontender. No masses or organomegaly. Extremities: No clubbing, cyanosis, or edema. Limited neurological examination is without focal deficits. Pulses: Posterior tibial=1/4. Results & Data ([facility]) Vital Signs (Past 12 Hours) Vital Signs Temp Pulse Pulse Resp BP Pulse Ox O2 Del Method 06/11/22 07:35 36.6 C 74 19 111/69 94 Room Air 06/11/22 03:01 36.6 C 62 20 120/75 92 Room Air 06/11/22 00:00 06/10/22 22:19 66 06/10/22 23:02 36.9 C 70 18 105/67 91 Room Air O2 Del Method 06/11/22 07:35 06/11/22 03:01 06/11/22 00:00 Room Air 06/10/22 22:19 06/10/22 23:02 Laboratory Results Lipids 06/10/22 Range/Units 05:46 Triglycerides 114 (0-150) mg/dl Cholesterol 117 (0-200) mg/dl HDL Cholesterol 27 mg/dl Cholesterol/HDL Ratio 4.3 (0-5) CBC 06/11/22 Range/Units 05:21 WBC 7.77 (4.8-10.8) K/ul RBC 4.30 (3.93-5.22) M/uL Hgb 13.4 (12.0-16.0) g/dl Hct 39.9 (34.1-44.9) % Plt Count 448 H (130-400) K/uL Neut # (Auto) 5.08 (1.4-6.5) K/uL Lymph # (Auto) 1.63 (1.2-3.4) K/uL [place] # (Auto) 0.79 (0.24-0.82) K/uL Eos # (Auto) 0.17 (0-0.50) K/uL Baso # (Auto) 0.08 (0-0.2) K/uL Comprehensive Metabolic Panel 06/11/22 Range/Units 05:21 Sodium 136 (136-145) mmol/L Potassium 3.8 (3.5-5.1) mmol/L Chloride 100 (98-107) mmol/L Carbon Dioxide 28 (21-32) mmol/L BUN 18 (6-23) mg/dl Creatinine 0.46 L (0.6-1.2) mg/dl Glucose 102 H (70-99(Fasting)) mg/dl Calcium 9.2 (8.5-10.1) mg/dl Intake and Output 06/10/22 06/11/22 06/11/22 22:59 06:59 14:59 Intake Total 520 / 1170 50 / 1170 Output Total 750 / 1003 Balance 520 / 167 -700 / 167 Intake: Oral 520 / 1170 50 / 1170 Output: Urine 750 / 1000 Other: # Unmeasured Voids 2 Weight 74.9 kg Weight Measurement Method Built in [facility]
--- NOTE | 2022-06-11 10:48 | Pulmonology Progress Note ---
Date of Service June 11, 2022 Assessment & Plan (1) Pulmonary emboli: (2) Pleural effusion: (3) Acute hypoxemic respiratory failure: (4) SOB (shortness of breath): (5) Chest pain, pleuritic: Plan Impression: 67-year-old female with history of tobacco abuse with hemorrhagic pleural effusion and pulmonary emboli Recommendations: 1. Pleural effusion: Bloody exudate with negative cytology. Could be related to PE and anticoagulation. Serositis also a possibility. Serological evaluation is still pending. Agree with colchicine. Discussed with cardiology. Plans are to use for about 3 months. Would recommend that she have a follow-up chest x-ray performed in about 2 to 3 weeks to ensure no reaccumulation of the pleural fluid. 2. Pulmonary embolism: Okay to resume anticoagulation. Oral anticoagulation may be appropriate. Patient has several indications for lifelong anticoagulation including atrial fibrillation. 3. COPD: Outpatient PFTs recommended. Patient is not bronchospastic currently. No indication for inhalers antibiotics or steroids 4. Tobacco abuse: Smoking cessation recommended. Discussed with patient and cardiology as well as hospitalist Okay to discharge from a pulmonary standpoint. Pulmonary will sign off. Call if questions. Admission and Anticipated Discharge Date Admission Date: June 06, 2022 Subjective Patient seen and examined. EMR reviewed. The patient is sitting up in a chair. She is off oxygen. She complains of some occasional chest tightness when she takes a deep breath but otherwise feels better. She is not coughing or expectorating phlegm. She is not noted any chest pain palpitations or significant lower extremity edema. No fevers chills or night sweats. Review of Systems Review of Systems: All systems reviewed & are unremarkable except as noted in Subjective Physical Exam Constitutional: WD/WN, vitals as above Neck: trachea midline, no thyromegaly Respiratory: normal respiratory effort; no respiratory distress, no labored breathing and not tachypneic Cardiovascular: RRR, no murmur, no edema Gastrointestinal (Abdomen): normal bowel sounds, soft, nontender, no hepatosplenomegaly Musculoskeletal: Extremities: extremities normal to inspection Skin: no rashes, warm and dry Lymphatic: no cervical lymphadenopathy Results & Data Results & Data ([facility]) Vital Signs (Past 12 Hours) Vital Signs Temp Pulse Resp BP Pulse Ox O2 Del Method O2 Del Method 06/11/22 08:00 Room Air 06/11/22 07:35 36.6 C 74 19 111/69 94 Room Air 06/11/22 03:01 36.6 C 62 20 120/75 92 Room Air 06/11/22 00:00 Room Air 06/10/22 23:02 36.9 C 70 18 105/67 91 Room Air Laboratory Results 06/11/22 05:21 06/11/22 05:21 Serological panel still pending Diagnostic Findings Chest x-ray from today was independently reviewed. There is a hazy opacity at the right lung base with blunting of the costophrenic angle but no significant reaccumulation of pleural fluid. PG Care Time/CCT Total # of Minutes Spent Total Time Spent with Patient: Total time spent is greater than 50% in coordination of care (as documented) at patient's floor/unit and/or counseling patient: Coding Level of Care Code 69151 Subseq Hosp Care Lvl 2 Diagnoses Pulmonary emboli I26.99 Pleural effusion J90 Acute hypoxemic respiratory failure J96.01 SOB (shortness of breath) R06.02 Chest pain, pleuritic R07.81
--- NOTE | 2022-06-11 12:51 | Discharge Summary ---
Date of Service June 11, 2022 Admission HPI Per Admitting Provider History obtained from patient and records. Medical history significant for SSS sp PPM on Eliquis, HTN, pulmonary hypertension, iatrogenic PE, fibromyalgia, ongoing tobacco abuse Patient underwent outpatient PPM placement for SSS syndrome 3 weeks ago. A few days after procedure, patient noted pleuritic right-sided chest pain with shortness of breath. Subsequent [facility] confinement 2 weeks ago for atrial pacemaker lead displacement. Patient underwent lead repositioning. CT chest showed small pericardial effusion and moderate right pleural effusion. Patient still with persistent right-sided chest pain following discharge. Worse with motion. Episodic palpitations with shortness of breath. Patient thinks she is still going for A. fib. Patient mentioned symptoms to PCP on follow-up visit 4 days ago. Patient noted to be in A. fib at the office. PCP communicated with patient qa manager subsequently initiation of Amiodarone (200 mg 3 times daily for 2 weeks then once daily) and Eliquis medications. Preceding symptoms over the next few days despite compliance with new medications. Denies dietary discretion. Usual stress at home. Patient also gives history of snoring and waking up in the morning not feeling rested despite 8 hours of sleep. No unusual cough symptoms. Leg swelling without weight gain. Patient consulted ER. Patient went into rapid A. fib while waiting at the ER. O2 sats later noted to be 80s on room air. . Medical History as above SURGICAL HISTORY: . cholecystectomy. Bowel surgery for complicated diverticulitis. PPM. Appendectomy, colostomy revision, hip replacement, hernia repair FAMILY HISTORY: Heart disease, pulmonary embolism, colon cancer, breast cancer, lung cancer PERSONAL/ SOCIAL HISTORY: Few cigarettes a day, no EtOH intake, disabled Admission Exam Per Admitting Provider GENERAL: uncomfortable, obese, minimal respiratory distress SKIN: Normal color, warm HEENT: [place] palpebral conjunctivae, no ptosis, dry buccal mucosa, nasal cannula in place NECK : Supple, no tenderness CHEST : Decreased breath sounds, no tenderness HEART : Irregular, tachycardic, no obvious murmurs ABDOMEN: Some distention, nontender EXTREMITIES : Minimal LE swelling, no LE tenderness, no other conspicuous deformities noted NEUROLOGIC : Coherent, no facial asymmetry, no other gross focality Principal Diagnosis pericardial effusion and right sided pleural effusion Discharge Exam Physical Exam: Vitals signs as noted above General Appearance:Moderately built and nourished, ill-appearing, mild distress Head: normocephalic, Atraumatic Eyes: normal inspection, EOMI Neck: supple, Trachea midline Respiratory/Chest: Decreased breath sounds, CTA, No accessory muscle use, + pacemaker, s/p removed chest tube drain on right Cardiovascular: S1, S2, No murmur Abdomen/GI:Soft, mild tender, + abdominal incisional wound ,bowel sounds present Extremities/Musculoskeletal:normal inspection, Trace edema Neurologic/Psych:AAOX3, grossly no focal neurological deficits Skin: normal color, warm Discharge Data Allergies Allergy/AdvReac Type Severity Reaction Status Date / Time domiphen Allergy Severe tongue Verified 06/06/22 16:17 swelling cephalexin Allergy Intermediate RASH Verified 06/06/22 16:17 Cephalosporins Allergy Intermediate hives, Verified 06/06/22 16:17 itching Ceepryn Chloride Allergy Severe tongue Uncoded 06/06/22 16:17 swelling Consultations 06/06/22 19:50 ED Decision to Admit Stat 06/06/22 22:39 Consult Cardiology Routine 06/07/22 08:47 Consult Pulmonology Routine Ordered Studies 06/06/22 15:50 US RUQ [US liver] Stat 06/06/22 19:44 CT angio chest PE protocol Stat 06/07/22 12:36 CT abd pelvis wo con Urgent 06/07/22 12:41 US venous doppler LE BI Routine 06/09/22 07:24 sono, invasive monitoring [US point of care ultrasound] Routine Hospital Course (1) Acute hypoxemic respiratory failure: Patient admitted for respiratory distress found to have pericardial effusion as well as right sided pleural effusion. Pericardia effusion resolved and pacemaker was interrogated and is working well after revision around for RA lead malfunction. Patient likely had pericardial effusion from PPM revision and responded to colchicine (to take for 3 months) as well as possibly causing right sided pleural effusion. Pleural effusion was treated with right sided pigtail drain with bloody drainage and negative cytology (investigated for malignancy given tobacco use history). Chest tube was removed and repeat CXR 24 hours later showed stable pulmonary exam. Patient also found to have segmental PEs on presentation and is on Eliquis for this. During her presentation for revision of PPM, she was also noted to have atrial fibrillation and was started on Eliquis and will continue for at least 3 months and possibly longer pending consultation with her bicycle inspector. She should follow up with Cardiology, pulmonology, PCP. Daughter Sissy [phone] was explained in detail hospital course and likely etiology of patients respiratory and cardiac symptoms and issues over the past 2 months. - likely multifactorial - found to have LLL mutliple PEs, right sided pleural effusion, recent pericardial effusion - started on AC - heparin drip --> Eliquis - s/p Chest tube per pulm - no removed - was bloody effusion but negative cytolo gy - follow up further pulm recs - pericardia effusion resolve on repeat TTE 06/09/2022 - weaned of oxygen - tolerated ambulation with PT well and recommends home - counseled on smoking cessation (2) Pleural effusion: - s/p Chest tube per pulm - cytology negaive for malignancy - etiology unclear - possibly related to ?PE although was on ipsilateral side, vs pericardial effusion from PPM revision - also with recent weight loss - follow up further pulm recs (3) Pulmonary emboli: - continue AC 3-6 months with heme follow - may be candidate for life long AC - also given Afib - monitor for bleeding - weaned of oxygen and ambulating well - CXR 06/11/2022 s/p pigtail removed 06/10/2022 demonstrated stable pulmonary exam - ok for discharge from pulm perspective with follow up with CXR in 2-3 weeks and PCP and pulm follow up (4) Dyslipidemia: - not on statin - history of tobacco use disorder, HTN - will get lipids and A1c (5) A-fib: - continue metoprolol and amiodarone - continue eliquis as above - rate controlled (6) Chronic abdominal wound infection: - s/p 5 days of doxycycline (7) Sick sinus syndrome: - s/p PPM - continue BB and amio as above - recommended Cardiology follow up for PPM and discussion of Afib and AC going forward (8) HTN (hypertension): - monitor - continue home meds as tolerated (9) Tobacco use disorder: - counseled on smoking cessation Plan DVT ppx: apixaban Code Status: Full Code Dipso: home Jose Adams MD [facility] Medicine Total Time Total Time Spent Total Time Spent (In Minutes): 64 Total Time Includes: Examination of the Patient, Discharge Planning, Medication Reconciliation and Communication With Other Providers Discharge Plan Discharge Items Patient Disposition: Home - Self-Care Reason For Visit: RESO FAILURE Discharge Diagnosis: right pleural effusion, pulmonary embolism Condition on Discharge: Good Activity: Resume your previous activity Non-emergency contact: Primary Care Provider, Color Specialist and Quick Service Technician Call non-emergency contact if: you have any medication questions and your sympto ms worsen Follow-up/Referrals: Barry Ball MD [Physician] - Yeison Hung DO [Color Specialist] - Pedro Hayden DO [Primary Care Provider] - (Date & Time 06/16/2022 11:00 AM Provider Pdero Hayden DO Department [facility] ) Diet: Heart Healthy Addtl Attending Provider Instructions: You were admitted for respiratory failure that was likely from a pulmonary embolism (clot in the lung vessels), pleura effusion (fluid next to the lung) and pericardial effusion (fluid next to the heart) which may have been from the revisoin of your pacemaker leads you had done. You were seen by Cardiology and pulmonary doctors. You had a chest tube placed on the right side with drainage of bloody fluid, thought to be from the pulmonary embolism or from trauma when they fixed your pacemaker lead. You had slowing down of drainage and your chest tube was removed without reaccumulation of fluid. You had a repeat echocardiogram which demonstrated improvement of the pericardial effusion. You were weaned off oxygen support and seen by physical therapy who thought you were ok for discharge to home. You were started on Eliquis for atrial fibrillation in the past and should continue this as it is to prevent clotting complications from atrial fibrillation but is also the treatment for your pulmonary embolism. You should follow up with your primary care doctor, qa manager, and pulmonary doctors. You will need a repeat Chest X-ray in 2-3 weeks to evaluate continued resolution of your pleural effusion. Pending Studies at Discharge: No Stand-Alone Forms: My [employer], Smoking Cessation Medications and DC Order Prescriptions: New metoprolol tartrate 25 mg Tablet 12.5 mg PO BID Qty: 60 0RF potassium chloride 20 mEq Tablet,Er Particles/Crystals 20 meq PO DAILY Qty: 20 0RF famotidine 20 mg Tablet 20 mg PO BID Qty: 60 0RF colchicine [Colcrys] 0.6 mg Tablet 0.6 mg PO BID Qty: 120 0RF Continued fluoxetine [Prozac] 40 mg Capsule 40 mg PO QAM polyethylene glycol 3350 [Miralax] 17 gram Powder In Packet 17 g PO DAILY trazodone 100 mg Tablet 100 mg PO HS amiodarone 200 mg tablet 200 mg PO DIRECTED Rx Instructions: PER [facility]--TAKE 200 MG TID FOR 2 WEEKS, THEN ONCE DAILY AFTER THAT. oxycodone-acetaminophen 5-325 mg tablet 1 tab PO DIRECTED PRN (Reason: Pain) echinacea purpurea extract [echinacea] 125 mg Tablet 125 mg PO DAILY Rx Instructions: administer with meals Eliquis 5 mg tablet 5 mg PO BID cyanocobalamin (vitamin B-12) [Vitamin B-12] 1,000 mcg Tablet 1,000 mcg PO DAILY meclizine 12.5 mg Tablet 12.5 mg PO TID PRN (Reason: Dizziness) vitamin K2 100 mcg Capsule 100 mcg PO DAILY furosemide 20 mg Tablet 20 mg PO DAILY spironolactone [Aldactone] 25 mg Tablet 12.5 mg PO DAILY acetaminophen 325 mg Tablet 650 mg PO Q4H PRN (Reason: pain) Qty: 30 0RF Discharge Orders: Discharge Order (Routine); Ordered 06/11/22 Ordered By: Jose Adams Admission Data Admit Date/Time: 06/06/22 20:44 Attending Provider: Jose Adams Admit Provider: Kei Beck Primary Care Provider: Pedro Hayden Other Providers: Kei Beck ; Logan Baxter ; Yeison Hung ; Kiran Rhoades ; Dev Cordero ; Amol Landin ; Richard De Oliveira Rebecca K ; Polina Sherwood ; Sena Yee ; Juan Archer ; Huber Glez ; Michael Sutton ; Barry Ball ; Alvina Davila ; Mabel Roman Other Interventions: Discharge Summary Assessment (RN) Last Done: 06/11/22 12:04
[2022-06-13 16:33] LABS: Anti Cardiolipin Ab IgM >112.0 MPL-U/mL; Anti Nuclear Antibody Screen NEGATIVE (NEGATIVE); Anti-Centromere Ab <1.0 NEG AI (<1.0 NEG); Anti-SS-A <1.0 NEG AI (<1.0 NEG); Anti-SS-B <1.0 NEG AI (<1.0 NEG); Chromatin Antibody <1.0 NEG AI (<1.0 NEG); Complement C3 133 mg/dL (83-193); DNA ds Crithidia NEGATIVE (NEGATIVE); Microsomal Ab 2 IU/mL (<9); RNP Antibody <1.0 NEG AI (<1.0 NEG); Scleroderma Anti Scl-70 Ab <1.0 NEG AI (<1.0 NEG); Sm Antibody <1.0 NEG AI (<1.0 NEG)
== END 2022-06-11 12:44 | disposition home or self-care (01) | DRG 189 ==
LOC: ED 12:47 → SUATTDRO 20:44 → 2S 20:44
DX: I26.93 Single subsegmental thrombotic pulmonary embolism without acute cor pulmonale; Z86.711 Personal history of pulmonary embolism; Z98.890 Other specified postprocedural states; E78.5 Hyperlipidemia, unspecified; Z88.8 Allergy status to other drugs, medicaments and biological substances; I26.94 Multiple subsegmental thrombotic pulmonary emboli without acute cor pulmonale; J96.01 Acute respiratory failure with hypoxia; M79.7 Fibromyalgia; G47.33 Obstructive sleep apnea (adult) (pediatric); I48.91 Unspecified atrial fibrillation; Z95.0 Presence of cardiac pacemaker; I11.0 Hypertensive heart disease with heart failure; K21.9 Gastro-esophageal reflux disease without esophagitis; Y92.009 Unspecified place in unspecified non-institutional (private) residence as the place of occurrence of the external cause; I49.5 Sick sinus syndrome; Z88.1 Allergy status to other antibiotic agents; I31.39 Other pericardial effusion (noninflammatory); Y71.2 Prosthetic and other implants, materials and accessory cardiovascular devices associated with adverse incidents; J98.11 Atelectasis; F17.210 Nicotine dependence, cigarettes, uncomplicated; R07.81 Pleurodynia; I27.20 Pulmonary hypertension, unspecified; I50.9 Heart failure, unspecified; F32.A Depression, unspecified; J90 Pleural effusion, not elsewhere classified; T82.120A Displacement of cardiac electrode, initial encounter